=== PATIENT | female | born 1960 | race Caucasian/White ===

== ENCOUNTER → 2023-10-26 14:42 | Outpatient (BNVA) | payer MEDICAID, SELFPAY | PROVIDERS: PCP Internal Medicine; Visit Provider Physician Assistant Surgical ==

== ENCOUNTER 2023-11-22 08:34 | Outpatient (AMB) | payer MEDICAID, SELFPAY ==
--- NOTE | 2023-11-22 12:52 | MHC.OFFVISWM ---
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 Allergies penicillin V Allergy (Unknown, Verified 11/22/23 12:52) hives acarbose Adverse Reaction (Unknown, Verified 11/22/23 12:52) Flatulence topiramate [From Topamax] Adverse Reaction (Unknown, Verified 11/22/23 12:52) Facial Tingling shellfish Allergy (Unknown, Uncoded 11/22/23 12:52) Angioedema Medication List - Last Reconciled 11/22/23 by Ashwin Cheung MD albuterol sulfate 90 mcg/actuation (Ventolin HFA) 2 puffs inhalation Q4H PRN atorvastatin 80 mg PO BEDTIME blood sugar diagnostic (FreeStyle Lite Strips) As directed blood-glucose meter (FreeStyle [place] Lite kit) As directed escitalopram oxalate (Lexapro) 20 mg PO DAILY ferrous sulfate 325 mg PO DAILY fluticasone propionate 110 mcg/actuation (Flovent HFA) 2 puffs inhalation BID hydroxyzine HCl 25 mg PO TID lancets (FreeStyle Lancets) As directed loratadine (Claritin) 10 mg PO DAILY lorazepam (Ativan) 0.5 mg PO BEDTIME PRN mirabegron ER (Myrbetriq) 50 mg PO DAILY mometasone 0.1% 1 appl topical DAILY prazosin 1 mg PO TID propranolol ER 160 mg PO DAILY sennosides (senna) 8.6 mg PO DAILY topiramate 50 mg PO BID valacyclovir (Valtrex) 1,000 mg PO DAILY zolpidem (Ambien) 10 mg PO BEDTIME HPI 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 BMI 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 HPI Details Start time: 12.50pm, End time: 1.32pm ?I spent 37 minutes speaking with the patient on the phone plus an additional 5 minutes reviewing and updating records for a total of 42 minutes HPI Comments History of Present Illness Details Previous weight loss efforts: previous laparoscopic gastric bypass Wakes up: 8am, sleeps: 11pm Breakfast: none Lunch: 2pm (ham and cheese sandwich), 2 boiled eggs Dinner: 6-7pm (rice, meat) Snacks: cookie (4pm), cookie 9pm Exercise: has stationary bike Fluids: Coffee: 20oz/day (milk, sweetener), occasionally, tea, soda: none, juice: none, ETOH: rarely PFSH Medical History (Updated 11/22/23 @ 13:24 by Ashwin Cheung MD) Intestinal malabsorption Migraines Insomnia Anxiety Depression DJD (degenerative joint disease) Hyperlipidemia Hypertension CAD (coronary artery disease) Obstructive sleep apnea treated with continuous positive airway pressure (CPAP) Hypoglycemia Anxiety and depression Anemia Seronegative rheumatoid arthritis Sleep apnea Asthma Surgical History (Updated 10/26/23 @ 15:30 by Andrey Gonzales, RN) History of surgery on wrist Hx of appendectomy H/O total hip arthroplasty Hx of cataract extraction H/O gastric bypass Family History (Updated 10/26/23 @ 15:31 by Andrey Gonzales, MARLYN) Father Hypertension Asthma Depression Diabetes Mother Diabetes Hypertension Social History (Updated 06/04/23 @ 15:37 by Andreia Smallwood [facility]) Alcohol intake: current Alcohol intake frequency: holidays/special occasions only Patient Tobacco Use Status: Former Tobacco user Assessment & Plan Assessment & Plan (1) Obesity: Code(s): E66.9 - Obesity, unspecified Qualifiers: Obesity type: due to excess calories Obesity classification: adult class 2 (BMI 35 - 39.9) Serious obesity comorbidity presence: with serious comorbidity Body mass index: BMI 36.0-36.9 Qualified Code(s): E66.01 - Morbid (severe) obesity due to excess calories; Z68.36 - Body mass index [BMI] 36.0-36.9, adult Plan: 1.? Plan for lap sleeve gastrectomy of the gastric pouch. If diaphragmatic or ventral hernias are present at time of surgery, these will be repaired laparoscopically as well. 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 I emphasized the importance of close follow-up, adherence to instructions and good communication. 2. Nutritional counseling. Start with 2 CELEBRATE REBUILD protein (buy at [facility]) shakes (ONE scoop EACH in 8oz low fat unsweetened almond milk each) at 9am-11am and 12pm-2pm, 1 protein bar (CELEBRATE protein bars, buy at [facility] [employer] [facility]) at 3pm-5pm, dinner at 6pm (6 forks of protein and 6 forks of salad/vegetables) AND one more protein bar after dinner at 8pm-10pm. So you do 2 protein shakes, 2 protein bars and one meal per day. Meal to include lean meat (beef, fish, pork, turkey, chicken), or tamazight yogurt, or egg whites, or beans with a salad with olive oil and fruits (berries, pears, apples, kiwi). Avoid salt, breads, potatoes, rice, pasta, desserts. 3. Each shake would be drunk slowly, like coffee in a period of 2 hours. 4. Cut each bar in 4 pieces and eat each piece in 30min ?to make each bar last 2 hours. 5. I emphasized the importance of measuring accurately the food portion and measure it when serving the food in plate 6. The meal portions include 6 full-size forks of meat and 6 full-size forks of salad. You always eat the meat portion but you can replace up to 3 forks for salad/vegetables with rice, potatoes or pasta, or a fruit ?if you like. The less you do it the better weight loss will be. 7. One full-size fork is what it can be scooped on the fork without falling aside and not what can be bit with the fork. Use regular forks like those you find in a typical restaurant. 8.? Please send me weight measurements as soon as possible and then once a week. Always include your diet and exercise plan. 9. Alternatively start stationary bike at a resistance level of 4.0 Increase level by 1.0 every 3 min to a max level of 10.0. Stay at this level for 3 min and then return to level 4.0 and repeat same steps until 300 calories are burned. Velocity target is 12mph and heart rate is 145 bpm. Goal is to burn 2000 calories per week on exercise 10. The best choice would be to purchase a stationary bike, elliptical or treadmill at home that can track calories. Let me know if you do so I can give you an exercise plan. 11. Goal is to lose at least 1.5-2lbs per week 12. Goal to lose 10% of your weight before surgery, which is about 21lbs. Ultimate weight goal: 189lbs before surgery 13. Please follow the diet plan exactly without any change. If you don't like something about the plan or you feel hungry you need to communicate with me so I can help you revise the plan. You should not change the plan yourself. Orders: Orders Insulin Today E66.9 - Obesity, unspecified, E78.5 - Hyperlipidemia, unspecified, G47.33 - Obstructive sleep apnea (adult) (pediatric), I10 - Essential (primary) hypertension, I25.10 - Atherosclerotic heart disease of [place] coronary artery without angina pectoris, K90.9 - Intestinal malabsorption, unspecified, Z68.36 - Body mass index [BMI] 36.0-36.9, adult H Pylori Breath Test Today E66.9 - Obesity, unspecified, E78.5 - Hyperlipidemia, unspecified, G47.33 - Obstructive sleep apnea (adult) (pediatric), I10 - Essential (primary) hypertension, I25.10 - Atherosclerotic heart disease of [place] coronary artery without angina pectoris, K90.9 - Intestinal malabsorption, unspecified, Z68.36 - Body mass index [BMI] 36.0-36.9, adult Lipid Panel Today E66.9 - Obesity, unspecified, E78.5 - Hyperlipidemia, unspecified, G47.33 - Obstructive sleep apnea (adult) (pediatric), I10 - Essential (primary) hypertension, I25.10 - Atherosclerotic heart disease of [place] coronary artery without angina pectoris, K90.9 - Intestinal malabsorption, unspecified, Z68.36 - Body mass index [BMI] 36.0-36.9, adult Comprehensive Met. Panel Today E66.9 - Obesity, unspecified, E78.5 - Hyperlipidemia, unspecified, G47.33 - Obstructive sleep apnea (adult) (pediatric), I10 - Essential (primary) hypertension, I25.10 - Atherosclerotic heart disease of [place] coronary artery without angina pectoris, K90.9 - Intestinal malabsorption, unspecified, Z68.36 - Body mass index [BMI] 36.0-36.9, adult Vitamin B12 and Folate Today E66.9 - Obesity, unspecified, E78.5 - Hyperlipidemia, unspecified, G47.33 - Obstructive sleep apnea (adult) (pediatric), I10 - Essential (primary) hypertension, I25.10 - Atherosclerotic heart disease of [place] coronary artery without angina pectoris, K90.9 - Intestinal malabsorption, unspecified, Z68.36 - Body mass index [BMI] 36.0-36.9, adult C Reactive Protein Today E66.9 - Obesity, unspecified, E78.5 - Hyperlipidemia, unspecified, G47.33 - Obstructive sleep apnea (adult) (pediatric), I10 - Essential (primary) hypertension, I25.10 - Atherosclerotic heart disease of [place] coronary artery without angina pectoris, K90.9 - Intestinal malabsorption, unspecified, Z68.36 - Body mass index [BMI] 36.0-36.9, adult Vitamin A Today E66.9 - Obesity, unspecified, E78.5 - Hyperlipidemia, unspecified, G47.33 - Obstructive sleep apnea (adult) (pediatric), I10 - Essential (primary) hypertension, I25.10 - Atherosclerotic heart disease of [place] coronary artery without angina pectoris, K90.9 - Intestinal malabsorption, unspecified, Z68.36 - Body mass index [BMI] 36.0-36.9, adult TSH reflex Free T4 Today E66.9 - Obesity, unspecified, E78.5 - Hyperlipidemia, unspecified, G47.33 - Obstructive sleep apnea (adult) (pediatric), I10 - Essential (primary) hypertension, I25.10 - Atherosclerotic heart disease of [place] coronary artery without angina pectoris, K90.9 - Intestinal malabsorption, unspecified, Z68.36 - Body mass index [BMI] 36.0-36.9, adult Vitamin D 25-OH Total Today E66.9 - Obesity, unspecified, E78.5 - Hyperlipidemia, unspecified, G47.33 - Obstructive sleep apnea (adult) (pediatric), I10 - Essential (primary) hypertension, I25.10 - Atherosclerotic heart disease of [place] coronary artery without angina pectoris, K90.9 - Intestinal malabsorption, unspecified, Z68.36 - Body mass index [BMI] 36.0-36.9, adult US abdomen comp w elastography Today E66.9 - Obesity, unspecified, E78.5 - Hyperlipidemia, unspecified, G47.33 - Obstructive sleep apnea (adult) (pediatric), I10 - Essential (primary) hypertension, I25.10 - Atherosclerotic heart disease of [place] coronary artery without angina pectoris, K90.9 - Intestinal malabsorption, unspecified, Z68.36 - Body mass index [BMI] 36.0-36.9, adult XR chest 2V Today E66.9 - Obesity, unspecified, E78.5 - Hyperlipidemia, unspecified, G47.33 - Obstructive sleep apnea (adult) (pediatric), I10 - Essential (primary) hypertension, I25.10 - Atherosclerotic heart disease of [place] coronary artery without angina pectoris, K90.9 - Intestinal malabsorption, unspecified, Z68.36 - Body mass index [BMI] 36.0-36.9, adult ECG 12 lead EKG Today E66.9 - Obesity, unspecified, E78.5 - Hyperlipidemia, unspecified, G47.33 - Obstructive sleep apnea (adult) (pediatric), I10 - Essential (primary) hypertension, I25.10 - Atherosclerotic heart disease of [place] coronary artery without angina pectoris, K90.9 - Intestinal malabsorption, unspecified, Z68.36 - Body mass index [BMI] 36.0-36.9, adult FL upper GI w air Today E66.9 - Obesity, unspecified, E78.5 - Hyperlipidemia, unspecified, G47.33 - Obstructive sleep apnea (adult) (pediatric), I10 - Essential (primary) hypertension, I25.10 - Atherosclerotic heart disease of [place] coronary artery without angina pectoris, K90.9 - Intestinal malabsorption, unspecified, Z68.36 - Body mass index [BMI] 36.0-36.9, adult Hemoglobin A1c Today E66.9 - Obesity, unspecified, E78.5 - Hyperlipidemia, unspecified, G47.33 - Obstructive sleep apnea (adult) (pediatric), I10 - Essential (primary) hypertension, I25.10 - Atherosclerotic heart disease of [place] coronary artery without angina pectoris, K90.9 - Intestinal malabsorption, unspecified, Z68.36 - Body mass index [BMI] 36.0-36.9, adult Complete Blood Count Auto Diff Today E66.9 - Obesity, unspecified, E78.5 - Hyperlipidemia, unspecified, G47.33 - Obstructive sleep apnea (adult) (pediatric), I10 - Essential (primary) hypertension, I25.10 - Atherosclerotic heart disease of [place] coronary artery without angina pectoris, K90.9 - Intestinal malabsorption, unspecified, Z68.36 - Body mass index [BMI] 36.0-36.9, adult IRON PROFILE Today E66.9 - Obesity, unspecified, E78.5 - Hyperlipidemia, unspecified, G47.33 - Obstructive sleep apnea (adult) (pediatric), I10 - Essential (primary) hypertension, I25.10 - Atherosclerotic heart disease of [place] coronary artery without angina pectoris, K90.9 - Intestinal malabsorption, unspecified, Z68.36 - Body mass index [BMI] 36.0-36.9, adult Zinc Today E66.9 - Obesity, unspecified, E78.5 - Hyperlipidemia, unspecified, G47.33 - Obstructive sleep apnea (adult) (pediatric), I10 - Essential (primary) hypertension, I25.10 - Atherosclerotic heart disease of [place] coronary artery without angina pectoris, K90.9 - Intestinal malabsorption, unspecified, Z68.36 - Body mass index [BMI] 36.0-36.9, adult Vitamin B1 Today E66.9 - Obesity, unspecified, E78.5 - Hyperlipidemia, unspecified, G47.33 - Obstructive sleep apnea (adult) (pediatric), I10 - Essential (primary) hypertension, I25.10 - Atherosclerotic heart disease of [place] coronary artery without angina pectoris, K90.9 - Intestinal malabsorption, unspecified, Z68.36 - Body mass index [BMI] 36.0-36.9, adult Ferritin Today E66.9 - Obesity, unspecified, E78.5 - Hyperlipidemia, unspecified, G47.33 - Obstructive sleep apnea (adult) (pediatric), I10 - Essential (primary) hypertension, I25.10 - Atherosclerotic heart disease of [place] coronary artery without angina pectoris, K90.9 - Intestinal malabsorption, unspecified, Z68.36 - Body mass index [BMI] 36.0-36.9, adult Referrals Behavioral Health Referral E66.9 - Obesity, unspecified, E78.5 - Hyperlipidemia, unspecified, G47.33 - Obstructive sleep apnea (adult) (pediatric), I10 - Essential (primary) hypertension, I25.10 - Atherosclerotic heart disease of [place] coronary artery without angina pectoris, K90.9 - Intestinal malabsorption, unspecified, Z68.36 - Body mass index [BMI] 36.0-36.9, adult Nutrition/Dietitian Referral E66.9 - Obesity, unspecified, E78.5 - Hyperlipidemia, unspecified, G47.33 - Obstructive sleep apnea (adult) (pediatric), I10 - Essential (primary) hypertension, I25.10 - Atherosclerotic heart disease of [place] coronary artery without angina pectoris, K90.9 - Intestinal malabsorption, unspecified, Z68.36 - Body mass index [BMI] 36.0-36.9, adult Telehealth Telehealth Location of provider rendering services: practice address Location of patient: address on file Patient Identification confirmed using: Name, : Yes Telehealth method: voice only Patient verbally consented to treatment: Yes Patient verbally consented to billing insurance company: Yes Patient informed of any privacy concerns related to visit: Yes Minutes spent on Phone/Video with Pt.: 42 Coding Level of Care Code Tele [facility] Pt Level 3 (37145) Diagnoses Class 2 severe obesity due to excess calories with serious comorbidity and body mass index (BMI) of 36.0 to 36.9 in adult E66.01; Z68.36 Obesity type: due to excess calories Obesity classification: adult class 2 (BMI 35 - 39.9) Serious obesity comorbidity presence: with serious comorbidity Body mass index: BMI 36.0-36.9 Time Spent (min) 42
[2023-11-22 13:12] VITALS: BMI 35.9
== END 2023-11-22 13:33 | disposition home or self-care (01) ==
LOC: HO.HBS 08:34
PROVIDERS: PCP Internal Medicine; Visit Provider Surgery
DX: E66.01 Morbid (severe) obesity due to excess calories (principal); Z68.36 Body mass index [BMI] 36.0-36.9, adult
CPT/HCPCS: 99203

== ENCOUNTER → 2023-11-22 08:34 | Outpatient (BNVA) | payer MEDICAID, SELFPAY | PROVIDERS: PCP Internal Medicine; Visit Provider Surgery ==

== ENCOUNTER 2023-12-01 12:54 | Outpatient (REF) | payer MEDICAID, SELFPAY ==
--- NOTE | ~2023-12-01 | XR_ITS ---
EXAMINATION: XR CHEST CLINICAL INFORMATION: Obesity, unspecified COMPARISON: None available. TECHNIQUE: 2 views of the chest were obtained. FINDINGS: No significant abnormality is noted involving the heart, lungs, mediastinum, bony thorax or soft tissues. XR/XR chest 2V IMPRESSION: Unremarkable examination.
[2023-12-01 13:17] LABS: MANUAL DIFF FLAG NO
--- NOTE | 2023-12-01 13:20 | ECG_ITS ---
Test Reason : e66.9 Blood Pressure : / mmHG Vent. Rate : 061 BPM Atrial Rate : 061 BPM P-R Int : 164 ms QRS Dur : 102 ms QT Int : 408 ms P-R-T Axes : 011 -09 026 degrees QTc Int : 410 ms Normal sinus rhythm Normal ECG No previous ECGs available Referred By: Ashwin Cheung Electronically Signed By:KARYNA VANN
[2023-12-01 14:00] LABS: Basophils Percent Auto 0.4 % (0-2); Eosinophils Absolute Auto 0.2 X10*3/uL (0.0-0.4); Eosinophils Percent Auto 4.6 % (0-4); Hematocrit 39.1 % (37.0-47.0); Hemoglobin 12.7 g/dl (12.0-16.0); Imm Gran Abs Auto 0.01 X10*3/uL (0.00-0.03); Imm Gran Pct Auto 0.2 % (0.0-0.4); Lymphocytes Percent Auto 38.8 % (20-40); Mean Corpuscular HGB Conc 32.5 g/dl (31.0-35.0); Mean Corpuscular Hemoglobin 26.7 pg (27.0-33.0); Mean Corpuscular Volume 82.1 fL (80.0-98.0); Mean Platelet Volume 10.2 fL (9.4-12.3); Monocytes Absolute Auto 0.4 X10*3/uL (0.1-1.2); Monocytes Percent Auto 8.5 % (2-11); Neutrophils Absolute Auto 2.5 x10*3/uL (2.0-8.3); Neutrophils Percent Auto 47.5 % (45-73); Platelet Count 266 X10*3/uL (160-400); Red Blood Count 4.76 X10*6/uL (4.20-5.50); White Blood Count 5.2 X10*3/uL (4.8-10.8)
[2023-12-01 14:18] LABS: Estimated Average Glucose 114 mg/dL; Hemoglobin A1c % 5.6 % (<6.0)
[2023-12-01 14:35] LABS: Alanine Aminotransferase 14 U/L (0-31); Albumin Level 4.2 g/dL (3.5-5.0); Alkaline Phosphatase 69 U/L (39-117); Anion Gap 11 (12-20); Aspartate Amino Transferase 17 U/L (5-31); Bilirubin Total 0.5 mg/dL (0.0-1.0); Blood Urea Nitrogen 16 mg/dL (9-16); C Reactive Protein 0.15 mg/dL (< or = 0.50); Calcium 9.3 mg/dL (8.4-10.2); Carbon Dioxide 26 mmol/L (22-29); Chloride 107 mmol/L (96-108); Cholesterol 200 mg/dL (<200); Estimated Glomerular Filt Rate > 60; Glucose Random 86 mg/dL (60-115); HDL Cholesterol 42 mg/dL (>40); Iron 36 mcg/dL (30-160); LDL Cholesterol Calculated 133 mg/dL (<100); Percent Iron Saturation 10 % (15-50); Potassium 4.1 mmol/L (3.3-5.1); Sodium 140 mmol/L (135-145); Total Iron Binding Capacity 352 mcg/dL (228-428); Total Protein 7.2 g/dL (6.5-8.0); Triglycerides 126 mg/dL (<150); Unsaturated Iron Binding 316 ug/dL
[2023-12-01 14:52] LABS: Ferritin 5 ng/mL (10-250); Insulin 9 uU/mL (2-29); TSH reflex Free T4 0.59 uIU/mL (0.32-4.0); Vitamin D 25-OH Total 20.1 ng/mL (>30)
[2023-12-01 15:13] LABS: Folate 12.3 ng/mL (> or = 4.0); Vitamin B12 271 pg/mL (200-900)
[2023-12-03 18:44] LABS: Zinc 73 mcg/dL (60-130)
[2023-12-04 17:03] LABS: Vitamin A 35 mcg/dL (38-98)
[2023-12-06 12:23] LABS: Vitamin B1 11 nmol/L (8-30)
== END 2023-12-01 12:55 | disposition home or self-care (01) ==
LOC: HO.XRAY 12:54
PROVIDERS: PCP Internal Medicine; Visit Provider Surgery
DX: E66.9 Obesity, unspecified (principal); G47.33 Obstructive sleep apnea (adult) (pediatric); I25.10 Atherosclerotic heart disease of native coronary artery without angina pectoris; I10 Essential (primary) hypertension; E78.5 Hyperlipidemia, unspecified; K90.9 Intestinal malabsorption, unspecified; Z68.36 Body mass index [BMI] 36.0-36.9, adult
CPT/HCPCS: 36415; 71046; 80053; 80061; 82306; 82607; 82728; 82746; 83036; 83525; 83540; 84425; 84443; 84590; 84630; 85025; 86140; 93005

== ENCOUNTER → 2023-12-01 13:20 | Outpatient (BNV) | payer MEDICAID, SELFPAY | PROVIDERS: PCP Internal Medicine; Visit Provider Internal Medicine | DX: E66.9 Obesity, unspecified (principal) | CPT/HCPCS: 93010 ==

== ENCOUNTER 2023-12-13 08:07 | Outpatient (AMB) | payer MEDICAID, SELFPAY ==
--- OUTSIDE RECORDS SUMMARY | 2023-12-13 08:09 | XMS_ITS | Continuity of Care Document ---
Author Name Unknown Organization [facility] Address [address] [place] [address]- Care Team Providers Care Firer Low Pressure Name Role Phone Fabián MARTINEZ, Modesta Flores Primary Care Physician [phone] Encounter [facility] Date(s): 10/29/23 - 11/28/23 [facility] [address] [place] [address]- [place] Allergies, Adverse Reactions, Alerts Substance Reaction Severity Status penicillin hives, swelling of f arely and lips rash Active shellfish hives, swelling of face and lips Active Dust Active Pollen Active Medications 2 wheeled walker 2 wheeled walker, See Instructions, # 1 units, Refills 0, Tot. Refills 0, Maintenance, s/p lumbar surgery; required for ambulation safety, 08/09/18 13:24:11 EDT, Compound Start Date: 08/09/18 Status: Ordered acetaminophen 325 mg oral tablet 650 mg, By Mouth, Every 6 hours, May take OTC not to exceed 3000 mg/day, Refills 0, Maintenance, 08/05/22 8:05:00 EDT, Partial fill upon patient request if the prescription is for a schedule II opioid drug. Start Date: 08/05/22 Status: Ordered Ambien Tablet = 10 mg, By Mouth, Daily at bedtime, PRN Insomnia, 0 Refills, Maintenance, 08/05/22 8:05:00 EDT, Tablet, Partial fill upon patient request if the prescription is for a schedule II opioid drug. Start Date: 08/05/22 Status: Ordered Aspirin Low Dose 81 mg oral delayed release tablet 1 tablet, By Mouth, Daily, # 30 tablet, 0 Refills, Maintenance, 09/14/23 8:20:00 EDT, [facility] [id number], 160, cm, 08/05/22 11:33:00 EDT, Height, 96.3, kg, 08/04/22 6:38:00 EDT, Dry Weight Start Date: 09/14/23 Status: Ordered Ativan 0.5 mg oral tablet 2 tablet = 1 mg, By Mouth, Daily at bedtime, PRN as needed for anxiety, 0 Refills, Maintenance, 08/03/16 10:56:56 EDT Start Date: 08/03/16 Status: Ordered atorvastatin 40 mg oral tablet 1 tablet = 40 mg, By Mouth, Daily, # 90 tablet, 3 Refills, Maintenance, 06/25/21 7:39:00 EDT, Tablet, [facility]/pharmacy #[id number], Partial fill upon patient request if the prescription is for a schedule II opioid drug., 162, cm, 06/23/21 12:24:00 EDT, Height,... Start Date: 06/25/21 Status: Ordered celecoxib 200 mg oral capsule 1 capsule = 200 mg, By Mouth, Daily, # 30 capsule, 0 Refills, Maintenance, 11/13/21 13:24:00 EST, Capsule, Partial fill upon patient request if the prescription is for a schedule II opioid drug. Start Date: 11/13/21 Status: Ordered cholecalciferol 1000 intl units oral tablet 1 tablet = 1,000 International_Units, By Mouth, Daily, 0 Refills, Maintenance, 05/25/21 13:32:00 EDT, Tablet, Partial fill upon patient request if the prescription is for a schedule II opioid drug. Start Date: 05/25/21 Status: Ordered commode commode, See Instructions, # 1 units, Refills 0, Tot. Refills 0, Maintenance, dx:m43.26 needs 1 commode, 08/16/18 11:48:58 EDT, Compound Start Date: 08/16/18 Status: Ordered CPAP Machine See Instructions, # 1 each, Refills 11, Tot. Refills 11, Maintenance, BHIRS: Resmed S10 @ 9cm H2O, Ramp and EPR PRN, w/ Humidifier, Data Card, Chinstrap, Climateline TUbing, Headgear, Filters, Mask, Liners, ALL SUPPLIES DX: CHRISS G47.33 Length of Need 9... Start Date: 03/12/17 Status: Ordered escitalopram 20 mg oral tablet 1 tablet = 20 mg, By Mouth, Daily, # 30 tablet, 0 Refills, Maintenance, 05/19/21 16:42:00 EDT, Tablet, Partial fill upon patient request if the prescription is for a schedule II opioid drug. Start Date: 05/19/21 Status: Ordered Glucose Tablets Maintenance, 06/04/22 14:24:00 EDT, Supply Start Date: 06/04/22 Status: Ordered Golytely - oral powder for reconstitution 240 mL, By Mouth, Every 15 minutes, Start prep at 5 pm the night before the procedure. Take 1/2 of the prep Take the othe 1/2 6 hours before the procedure, # 1 each, 0 Refills, Maintenance, 05/07/23 13:07:00 EDT, REC Powder, [id number], Ok to... Start Date: 05/07/23 Status: Ordered Maalox Plus Liquid 30 mL, By Mouth, Every 4 hours, PRN Other, Heartburn, 0 Refills, Maintenance, 08/05/22 8:05:00 EDT,Suspension, Partial fill upon patient request if the prescription is for a schedule II opioid drug. Start Date: 08/05/22 Status: Ordered MiraLax Powder 1 pack/packet = 17 Gm, By Mouth, Daily, PRN Constipation, 0 Refills, Maintenance, 08/05/22 8:05:00 EDT, Powder, Partial fill upon patient request if the prescription is for a schedule II opioid drug. Start Date: 08/05/22 Status: Ordered MOM Liquid 30 mL, By Mouth, Daily, PRN Constipation, 0 Refills, Maintenance, 08/05/22 8:05:00 EDT, Suspension,Partial fill upon patient request if the prescription is for a schedule II opioid drug. Start Date: 08/05/22 Status: Ordered NuLYTELY with Flavor Packs oral powder for reconstitution See Instructions, Per instruction sheet. The night before colonoscopy drink 240mL every 15-20 minutes until first half is gone. Repeat 6 hours prior to procedure., # 4,000 mL, 0 Refills, Maintenance,02/24/23 14:25:00 EDT, [id number], may sub... Start Date: 02/24/23 Status: Ordered one 3 in one commode one 3 in one commode, See Instructions, # 1 units, Refills 0, Tot. Refills 0, Maintenance, one 3 in1 commode. diagnosis spinal stenosis and spondylolisthesis s/p lumbar TLIF surgery at L4/5. therapeutic obj. safety in transfers and reduction of pain... Start Date: 08/11/18 Status: Ordered prazosin 2 mg oral capsule 1 capsule = 2 mg, By Mouth, Daily at bedtime, # 270 capsule, 0 Refills, Maintenance, 05/19/21 16:41:00 EDT, Capsule, Partial fill upon patient request if the prescription is for a schedule II opioid drug. Start Date: 05/19/21 Status: Ordered ProAir HFA 90 mcg/inh inhalation aerosol with adapter 2 puffs, Inhalation, 4 times a day, 0 Refills, Maintenance Start Date: 12/11/11 Status: Ordered Propranolol 60 mg, By Mouth, Daily, Refills 0, Maintenance, 05/19/21 14:12:00 EDT, Partial fill upon patient request if the prescription is for a schedule II opioid drug. Start Date: 05/19/21 Status: Ordered QUEtiapine 25 mg oral tablet 50 mg, 2, tablet, By Mouth, Daily at bedtime, # 360 tablet, Refills 0, Maintenance, 05/19/21 16:42:00 EDT, Partial fill upon patient request if the prescription is for a schedule II opioid drug. Start Date: 05/19/21 Status: Ordered Restasis 0.05% ophthalmic emulsion INSTILL 1 DROP INTO BOTH EYES TWICE A DAY INSTILL 1 DROP IN BOTH EYES TWICE DAILY Start Date: 07/30/22 Status: Ordered senna 187 mg oral tablet 1 tablet = 8.6 mg, By Mouth, Daily at bedtime, PRN as needed for constipation, 0 Refills, Maintenance, 08/05/22 8:05:00 EDT, Tablet, Partial fill upon patient request if the prescription is for a schedule II opioid drug. Start Date: 08/05/22 Status: Ordered Symbicort 160mcg/4.5mcg Inhaler 2, puffs, Inhalation, 2 times a day, Refills 0, Maintenance, 08/08/18 18:03:50 EDT Start Date: 08/08/18 Status: Ordered Topiramate = 50 mg, By Mouth, 2 times a day, 0 Refills, Maintenance, 05/19/21 14:08:00 EDT, Partial fill upon patient request if the prescription is for a schedule II opioid drug. Start Date: 05/19/21 Status: Ordered Zetia 10 mg oral tablet 1 tablet = 10 mg, By Mouth, Daily, # 90 tablet, 3 Refills, Maintenance, 10/29/23 11:21:00 EST, [id number], Partial fill upon patient request if the prescription is for a schedule II opioid drug., 160, cm, 10/13/23 14:16:00 EST, Height, 96.3, k... Start Date: 10/29/23 Status: Ordered Problem List Condition Confirmation Course Effective Dates Status Health St atus Informant Anxiety Confirmed Active Appendectomy Confirmed 1979 Active Asthma Confirmed Active Depression Confirmed Active Gastric bypass operation Confirmed 2005 Active Menopausal symptom Confirmed Active Stage 2 cystocele Confirmed Active Migraines Confirmed Active Urinary incontinence, mixed Confirmed Active Obese class II Confirmed Active Obesity Confirmed Active Severe obesity (BMI 35.0-39.9) with comorbidity Confirmed Active Social History Social History Type Response Smoking Status Former smoker; Other : pt quit 3 yrs ago; entered on: 11/17/17 Sex Patient Care team information Care Team Personnel Name: Modesta Lockwood MD Position: [facility] Outreach Member Role: PCP Address: Address: [address] [place] [address] [address] Modesta Lockwood MD [address] Name: Iván Randall RN Position: [facility] RN Member Role: Primary Care Nurse Name: Ana Vernon RN Position: [facility] RN Member Role: Primary Care Nurse Name: Mony Charles RN Position: S RN Member Role: Primary Care Nurse Name: Bianca Oneill RN Position: S RN Member Role: Primary Care Nurse Name: Juju Pagan RN Position: S RN Member Role: Primary Care Nurse Care Team Related Persons Name: IFTIKHAR MASTERS Address: [address] [place] [address] Name: TAPAN GODINEZ Address: [address] [place] [address]
--- NOTE | 2023-12-13 12:18 | A.OFFVIS_ITS ---
Intake VS Expanded 12/13/23 12:28 Height 5 ft 4 in Weight 211 lb BMI 36.2 Body Fat % 48.9 Body Fat Mass 103.1 Fat Free Mass 107.8 Visceral Fat Rating 18 Body Water % 35 Body Water Mass 73.8 Basal Metabolic Rate/Score 1,439 Intake Visit Reasons: TV Follow Up SWL - 1ST Allergies penicillin V Allergy (Unknown, Verified 11/22/23 12:52) hives acarbose Adverse Reaction (Unknown, Verified 11/22/23 12:52) Flatulence topiramate [From Topamax] Adverse Reaction (Unknown, Verified 11/22/23 12:52) Facial Tingling shellfish Allergy (Unknown, Uncoded 11/22/23 12:52) Angioedema HPI TV Follow Up SWL - HPI Details Start time: 12.10pm, End time: 12.30pm ?I spent 15 minutes speaking with the patient on the phone plus an additional 5 minutes reviewing and updating records for a total of 20 minutes HPI Comments History of Present Illness Details Is doing 2 Celebrate Rebuild protein shakes (1 scoop in 8oz almond milk), 2 Celebrate protein bars and one meal (6 forks of protein and 6 forks of salad or vegetables) Exercise: is doing the stationary bike for 30-45 minutes daily [facility] Medical History (Updated 12/07/23 @ 18:43 by Ashwin Cheung MD) Intestinal malabsorption Migraines Insomnia Anxiety Depression DJD (degenerative joint disease) Hyperlipidemia Hypertension CAD (coronary artery disease) Obstructive sleep apnea treated with continuous positive airway pressure (CPAP) Hypoglycemia Anxiety and depression Anemia Seronegative rheumatoid arthritis Sleep apnea Asthma Surgical History (Updated 10/26/23 @ 15:30 by Andrey Gonzales RN) History of surgery on wrist Hx of appendectomy H/O total hip arthroplasty Hx of cataract extraction H/O gastric bypass Family History (Updated 10/26/23 @ 15:31 by Andrey Gonzales RN) Father Hypertension Asthma Depression Diabetes Mother Diabetes Hypertension Social History (Updated 06/04/23 @ 15:37 by ALFREDO Will) Alcohol intake: current Alcohol intake frequency: holidays/special occasions only Patient Tobacco Use Status: Former Tobacco user Assessment & Plan Assessment & Plan (1) Obesity: Code(s): E66.9 - Obesity, unspecified Qualifiers: Obesity type: due to excess calories Obesity classification: adult class 2 (BMI 35 - 39.9) Serious obesity comorbidity presence: with serious comorbidity Body mass index: BMI 36.0-36.9 Qualified Code(s): E66.01 - Morbid (severe) obesity due to excess calories; Z68.36 - Body mass index [BMI] 36.0- 36.9, adult Plan: 1. Continue present nutritional plan of 2 Celebrate Rebuild protein shakes (1 scoop in 8oz almond milk), 2 Celebrate protein bars and one meal (6 forks of protein and 6 forks of salad or vegetables) 2. Exercise: continue the stationary bike for 30-45 minutes daily 3. Continue to send me weight measurements weekly on Tuesdays Telehealth Telehealth Location of provider rendering services: practice address Location of patient: address on file Patient Identification confirmed using: Name, : Yes Telehealth method: voice only Patient verbally consented to treatment: Yes Patient verbally consented to billing insurance company: Yes Patient informed of any privacy concerns related to visit: Yes Minutes spent on Phone/Video with Pt.: 20 Coding Level of Care Code Tele Est Pt Level 3 (06974) Diagnoses Class 2 severe obesity due to excess calories with serious comorbidity and body mass index (BMI) of 36.0 to 36.9 in adult E66.01; Z68.36 Obesity type: due to excess calories Obesity classification: adult class 2 (BMI 35 - 39.9) Serious obesity comorbidity presence: with serious comorbidity Body mass index: BMI 36.0-36.9 Time Spent (min) 20
[2023-12-13 12:28] VITALS: BMI 36.2
== END 2023-12-13 12:32 | disposition home or self-care (01) ==
LOC: HO.HBS 08:07
PROVIDERS: PCP Internal Medicine; Visit Provider Surgery
DX: E66.01 Morbid (severe) obesity due to excess calories (principal); Z68.36 Body mass index [BMI] 36.0-36.9, adult
CPT/HCPCS: 99213

== ENCOUNTER → 2023-12-13 08:07 | Outpatient (BNVA) | payer MEDICAID, SELFPAY | PROVIDERS: PCP Internal Medicine; Visit Provider Surgery ==

== ENCOUNTER 2023-12-16 11:33 | Outpatient (REF) | payer MEDICAID, SELFPAY ==
--- NOTE | ~2023-12-16 | US_ITS ---
EXAMINATION: US COMPLETE ABDOMEN WITH LIVER ELASTOGRAPHY CLINICAL INFORMATION: Obesity. COMPARISON: None available. TECHNIQUE: Real-time imaging of the abdominal viscera. Noninvasive ultrasound liver fibrosis assessment is performed using Rosangela ElastPQ point quantification shear wave elastography (2D-SWE) with a C5-2 MHz transducer. Multiple elastography samples are obtained. FINDINGS: PANCREAS: Largely obscured by overlapping bowel gas. ABDOMINAL AORTA: The proximal segment is obscured by overlapping bowel gas. The mid and distal aortic segments are normal in caliber. INFERIOR VENA CAVA: Visualized portions are normal. LIVER: Normal. The liver demonstrates normal size, contour and echogenicity. No focal lesion or intrahepatic biliary duct dilatation. The right lobe measures 12.1 cm in length. The left lobe measures 9.0 cm in length. Portal flow is towards the liver (hepatopetal). Shear wave liver elastography median stiffness is 1.65 m/s (reference: normal median stiffness is 1.3 m/s or less). IQR/median stiffness to assess sampling precision is 0.07 (reference: good quality data set is IQR/median stiffness of 0.15 or less). GALLBLADDER: There is cholelithiasis, without sludge, polyps, wall thickening or pericholecystic fluid. COMMON BILE DUCT: Normal in caliber measuring 0.3 cm in diameter. RIGHT KIDNEY: Normal. No hydronephrosis. No renal calculi or focal parenchymal lesions. The kidney measures 11.9 cm in maximum dimension. LEFT KIDNEY: At the interpolar aspect, a 1.7 cm benign, simple cyst is seen, for which no imaging follow-up is recommended. No hydronephrosis. No renal calculi or focal parenchymal lesions. The kidney measures 11.6 cm in maximum dimension. SPLEEN: Normal. The spleen measures 9.4 cm in maximum dimension. FREE FLUID: None. US/US abdomen comp w elastography IMPRESSION: 1. Liver elastography: In the absence of other known clinical signs, measurements rule out compensated advanced chronic liver disease. If there are known clinical signs, further testing may be needed for confirmation. 2. There is cholelithiasis. 3. Technically limited ultrasound examination of the pancreas and abdominal great vessels. REFERENCE: Society of Radiologists in Ultrasound Liver Stiffness Thresholds (2020): LIVER STIFFNESS THRESHOLDS: *Liver Stiffness equal or less than 1.3 m/s: High probability of being normal. *Liver Stiffness less than 1.7 m/s: In the absence of other known clinical signs, rules out compensated advanced chronic liver disease. *Liver Stiffness 1.7-2.1 m/s: Suggestive of compensated advanced chronic liver disease but need further test for confirmation. *Liver Stiffness over 2.1 m/s: Rules in compensated advanced chronic liver disease. *Liver Stiffness over 2.4 m/s: Suggestive of clinically significant portal hypertension. QUALITY OF DATA SET: *IQR/Median value equal or less than 0.15 implies a quality data set. *IQR/Median value over 0.15 implies a poor quality data set. SIGNIFICANT CHANGE FROM PRIOR EXAM: Significant change if liver stiffness measurement is 10% or greater from prior exam. OTHER CONSIDERATIONS: The stage of liver fibrosis may be overestimated in the setting of acute hepatitis, liver inflammation, elevated liver function tests, hepatic vascular congestion, obstructive cholestasis, non-fasting state, and infiltrative diseases such as amyloidosis and lymphoma. In some patients with NAFLD, the liver stiffness thresholds for compensated advanced chronic liver disease may be lower. In causes other than viral hepatitis and NAFLD, liver stiffness thresholds are not well established.
== END 2023-12-16 11:34 | disposition home or self-care (01) ==
LOC: HO.US 11:33
PROVIDERS: PCP Internal Medicine; Visit Provider Surgery
DX: E66.9 Obesity, unspecified (principal); Z68.36 Body mass index [BMI] 36.0-36.9, adult; K90.9 Intestinal malabsorption, unspecified
CPT/HCPCS: 76700; 76981

== ENCOUNTER 2023-12-20 13:23 | Outpatient (AMB) | payer OTHER, SELFPAY ==
--- NOTE | 2023-12-20 13:22 | MHC.WMTHER ---
Intake Intake Visit Reasons: VIDEO BH Intake Allergies penicillin V Allergy (Unknown, Verified 11/22/23 12:52) hives acarbose Adverse Reaction (Unknown, Verified 11/22/23 12:52) Flatulence topiramate [From Topamax] Adverse Reaction (Unknown, Verified 11/22/23 12:52) Facial Tingling shellfish Allergy (Unknown, Uncoded 11/22/23 12:52) Angioedema PFSH Medical History (Updated 12/20/23 @ 13:44 by Nelli Purcell) Intestinal malabsorption Migraines Insomnia Anxiety Depression DJD (degenerative joint disease) Hyperlipidemia Hypertension CAD (coronary artery disease) Obstructive sleep apnea treated with continuous positive airway pressure (CPAP) Hypoglycemia Anxiety and depression Anemia Seronegative rheumatoid arthritis Sleep apnea Asthma Surgical History (Updated 10/26/23 @ 15:30 by Andrey Gonzales RN) History of surgery on wrist Hx of appendectomy H/O total hip arthroplasty Hx of cataract extraction H/O gastric bypass Family History (Updated 10/26/23 @ 15:31 by Andrey Gonzales RN) Father Hypertension Asthma Depression Diabetes Mother Diabetes Hypertension Social History (Updated 06/04/23 @ 15:37 by Andreia Smallwood [facility]) Alcohol intake: current Alcohol intake frequency: holidays/special occasions only Patient Tobacco Use Status: Former Tobacco user Behavioral Health Assessment Weight Management Therapy Therapy Notes Details Pt is looking to have weight loss surgery to help improve her health and quality of life. She sees a psychiatrist from [facility] in [place] who prescribes her medication for anxiety, panic and depression. she reported over 20 years ago she was hospitalized for mental health reasons. She has no reported history of problems with drugs or alcohol. Presenting Concerns Referral Source provider Reason for referral weight loss surgery evaluation Precipitating Event obesity Living Situation Current Living Situation Rent At risk of losing current housing? No Satisfied with current living situation? Yes Comments Pt lives alone with her dog. Food/Weight/Diet Expectations of change weight loss and maintenance History/Relationship with food Pt reported that she would skip meal in the morning and just have coffee, around 2pm she would eat, sandwich, leftovers, rice, struggles with sweets, will often bake and have to give it away, cookies before bed or bag of popcorn, whipped cream History/Relationship with weight Pt reported that she has struggled with her weight for most of her life. History/Relationship with dieting pills, keto, nutrisystem, slimfast, gastric bypass 2004. 255>175lbsfor about 3 years and then she started to gain weight again. Binge Eating Do you frequently eat large amounts of food in short periods of time, not feeling physically hungry? No Do you feel out of control when you eat a large amount of food in a short period of time? No Do you eat large amounts of food rapidly and typically alone? No Night Eating Do you wake up at least once during the night to eat? No If you wake up in the night, do you find that it is necessary to eat something in order to fall back asleep? No Do you have little or no appetite in the morning and feel very hungry in the evening, often overeating between dinner and when you go to bed? Yes Social History Family history and relationship Pt is and had two children. She reported that her oldest two years ago. Her son lives locally. She has three grandchildren and watches her 9 year old granddaughter often. 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 none Education Highest grade completed completed high school Preferred learning style Auditory, Verbal, Written, Learn by doing and Visual Currently enrolled in educational program? No Interested in further educational program? No Employment Employment Status Unemployed Wants help to find employment? No Meaningful activities taking care of her dog, grocery shopping Financial Situation Describe current financial situation Occasional struggle Financial assistance? SSDI Service Service? No Mental Health and Addiction Treatment Current/Past substance abuse? No Current/Past addictive behavior concerns? No Medical and Physical Health Summary Physical exam in the last year? Yes Pain Screening Current pain? Yes Pain in the last few months? Yes Medications Is the patient compliant with medications? Yes Does the patient have Lees Guardian in place? Not applicable Does the patient use complimentary health approaches? No Questionnaires PHQ-9 Over the last 2 weeks, how often have you been bothered by any of the following problems? 1. Little interest or pleasure in doing things: not at all 2. Feeling down, depressed, or hopeless: not at all 3. Trouble falling or staying asleep, or sleeping too much: more than half the days 4. Feeling tired or having little energy: more than half the days 5. Poor appetite or overeating: several days 6. Feeling bad about yourself - or that you are a failure or have let yourself or your family down: several days 7. Trouble concentrating on things, such as reading the newspaper or watching television: not at all 8. Moving or speaking so slowly that other people could have noticed. Or the opposite - being so fidgety or restless that you have been moving around a lot more than usual: several days 9. Thoughts that you would be better off or of hurting yourself in some way: not at all Total score: 7 Source: Developed by Drs. Vinayak Stein, Deloris Quiroga, Pedro Hudson and colleagues, with an educational liban from [employer]. Binge Eating Scale Group 1 A. I don't feel self-conscious about my wt. or body size when I'm with others. B. I feel concerned about how I look to others, but it normally does not make me fell disappointed with myself C. I do get self-conscious about my appearance and wt. which makes me feel disappointed in myself. D. I feel very self-conscious about my wt. and frequently I feel intense shame and disgust for myself. I try to avoid social contacts because of my self-consciousness. Response Group 1: B Group 2 A. I don't have any difficulty eating slowly in the proper manner. B. Although I seem to gobble down foods, I don't end up feeling stuffed because of eating to much. C. At times, I tend to eat quickly and then, I feel uncomfortably full afterwards. D. I have the habit of bolting down my food, without really chewing it. When this happens I usually feel uncomfortably stuffed because I've eaten to much. Response Group 2: A Group 3 A. I feel capable to control my eating urges when I want to. B. I feel like I have failed to control my eating more than the average person. C. I feel utterly helpless when it comes to feeling in control of my eating urges. D. Because I feel so helpless about controlling my eating I have become very desperate about trying to get control. Response Group 3: A Group 4 A. I don't have the habit of eating when I'm bored. B. I sometimes eat when I'm bored, but often I'm able to get busy and get my mind off food. C. I have a regular habit of eating when I'm bored, but occasionally, I can use some other activity to get my mind off eating. D. I have a strong habit of eating when I'm bored. Nothing seems to help me breath the habit. Response Group 4: B Group 5 A. I'm usually physically hungry when I eat something. B. Occasionally, I eat something on impulse even though I really am not hungry. C. I have the regular habit of eating foods, that I might not really enjoy, to satisfy a hungry feeling even though physically, I don't need the food. D. Although I'm not physically hungry, I get a hungry feeling in my mouth that only seems to be satisfied when I eat a food, like sandwich, that fills my mouth. Sometimes, when I eat the food to satisfy my mouth hunger, I then spit the food out so I won't gain weight. Response Group 5: A Group 6 A. I don't feel any guilt or self-hate after I overeat. B. After I overeat, occasionally I feel guilt or self-hate. C. Almost all the time I experience strong guilt or self-hate after I overeat. Response Group 6: A Group 7 A. I don't lose total control of my eating when dieting even after periods when I overeat. B. Sometimes when I eat a forbidden food on a diet, I feel like I blew it and eat even more. C. Frequently, I have the habit of saying to myself, I've blown it now, why not go all the way, when I overeat on a diet. When that happens I eat more. D. I have a regular habit of starting a strict diets for myself but I break the diets by going on an eating binge. My life seems to be either a feast or famine. Response Group 7: A Group 8 A. I rarely eat so much food that I feel uncomfortably stuffed afterwards. B. Usually about once a month, I each such a quantity of food, I end up feeling very stuffed. C. I have regular periods during the month when I eat large amounts of food, either at mealtime or at snacks. D. I eat so much food that I regularly feel quite uncomfortable after eating and sometimes a bit nauseous. Response Group 8: A Group 9 A. My level of calorie intake does not go up very high or go down very low on a regular basis. B. Sometimes after I overeat, I will try to reduce my caloric intake to almost nothing to compensate for the excess calories I've eaten. C. I have a regular habit of overeating during the night. It seems that my routine is not to be hungry in the morning but overeat in the evening. D. In my adult years, I have had week-long periods where I practically starve myself. This follows periods when I overeat. It seems I live a life of either feast or famine. Response Group 9: B Group 10 A. I usually am able to stop eating when I want to. I know when enough is enough. B. Every so often, I experience a compulsion to eat which I can't seem to control. C. Frequently, I experience strong urges to eat which I seem unable to control, but at other times I can control my eating urges. D. I feel incapable of controlling urges to eat. I have a fear of not being able to stop eating voluntarily. Response Group 10: A Group 11 A. I don't have any problem stopping eating when I feel full. B. I usually can stop eating when I feel full but occasionally overeat leaving me feeling uncomfortably stuffed. C. I have a problem stopping eating once I start and usually I feel uncomfortably stuffed after I eat a meal. D. Because I have a problem not being able to stop eating when I want, I sometimes have to induce vomiting to relieve my stuffed feeling. Response Group 11: B Group 12 A. I seem to eat just as much when I'm with others, Family social gatherings as when I'm by myself. B. Sometimes, when I'm with other persons, I don't eat as much as I want to eat because I'm self-conscious about my eating. C. Frequently, I eat only a small amount of food when others are present, because I'm very embarrassed about my eating. D. I feel so ashamed about overeating that I pick times to overeat when I know no one will see me. I feel like a closet eater. Response Group 12: A Group 13 A. I eat three meals a day with only an occasional between meal snack. B. I eat 3 meals a day, but I also normally snack between meals. C. When I am snacking heavily, I get in the habit of skipping regular meals. D. There are regular periods when I seem to be continually eating, with no planned meals. Response Group 13: A Group 14 A. I don't think much about trying to control unwanted eating urges. B. At least some of the time, I feel my thoughts are pre-occupied with trying to control my eating urges. C. I feel that frequently I spend much time thinking about how much I ate or about trying not to eat anymore. D. It seems to me that most of my waking hours are pre-occupied by thoughts about eating or not eating. I feel like I'm constantly struggling not to eat. Response Group 14: D Group 15 A. I don't think about food a great deal. B. I have strong craving for food but they last only for brief periods of time. C. I have days when I can't seem to think about anything else but food. D. Most of my days seem to be pre-occupied with thoughts about food. I feel like I live to eat. Response Group 15: B Group 16 A. I usually know whether or not I'm physically hungry. I take the right portion of food to satisfy me. B. Occasionally, I feel uncertain about knowing whether or not I'm physically hungry. A these times it's hard to know how much food I should take to satisfy me. C. Even though I might know how many calories I should eat, I don't have any idea what is a normal amount of food for me. Response Group 16: C Binge Eating Score: 10 Score less than 17 Minimal Risk Score between 18-26 Moderate Risk Score between 27-46 High Risk Assessment & Plan Assessment & Plan (1) Anxiety disorder, unspecified: Code(s): F41.9 - Anxiety disorder, unspecified (2) Obesity: Code(s): E66.9 - Obesity, unspecified Qualifiers: Obesity type: due to excess calories Obesity classification: adult class 2 (BMI 35 - 39.9) Serious obesity comorbidity presence: with serious comorbidity Body mass index: BMI 36.0-36.9 Qualified Code(s): E66.01 - Morbid (severe) obesity due to excess calories; Z68.36 - Body mass index [BMI] 36.0-36.9, adult Plan Patient does not appear to have any serious barriers with her mental health. She is cleared for surgery when ready. Telehealth Telehealth Location of provider rendering services: other Location of patient: address on file Patient Identification confirmed using: Name, : Yes Telehealth method: voice only Patient verbally consented to treatment: Yes Patient verbally consented to billing insurance company: Yes Patient informed of any privacy concerns related to visit: Yes Minutes spent on Phone/Video with Pt.: 45 Coding Level of Care Code Tele Psy Diag Eval (33682) Diagnoses Anxiety disorder, unspecified F41.9 Class 2 severe obesity due to excess calories with serious comorbidity and body mass index (BMI) of 36.0 to 36.9 in adult E66.01; Z68.36 Obesity type: due to excess calories Obesity classification: adult class 2 (BMI 35 - 39.9) Serious obesity comorbidity presence: with serious comorbidity Body mass index: BMI 36.0-36.9 Time Spent (min) 45
== END 2023-12-20 13:45 | disposition home or self-care (01) ==
LOC: HO.HBST 13:23
PROVIDERS: PCP Internal Medicine; Visit Provider Counselor Mental Health
DX: F41.9 Anxiety disorder, unspecified (principal); E66.01 Morbid (severe) obesity due to excess calories; Z68.36 Body mass index [BMI] 36.0-36.9, adult
CPT/HCPCS: 90791

== ENCOUNTER → 2023-12-20 13:23 | Outpatient (BNVA) | payer OTHER, SELFPAY | PROVIDERS: PCP Internal Medicine; Visit Provider Counselor Mental Health | DX: E66.01 Morbid (severe) obesity due to excess calories (principal); Z68.36 Body mass index [BMI] 36.0-36.9, adult; F41.9 Anxiety disorder, unspecified | CPT/HCPCS: 90791 ==

== ENCOUNTER 2023-12-21 14:20 | Outpatient (AMB) | payer MEDICAID, SELFPAY ==
--- NOTE | 2023-12-21 14:12 | MHC.AMNUTRGE ---
Intake VS Expanded 12/21/23 14:30 Height 5 ft 4 in Weight 200 lb BMI 34.3 Intake Visit Reasons: VIDEO Initial Nutrition [facility] Liquefaction Supervisor Required: No Allergies penicillin V Allergy (Unknown, Verified 11/22/23 12:52) hives acarbose Adverse Reaction (Unknown, Verified 11/22/23 12:52) Flatulence topiramate [From Topamax] Adverse Reaction (Unknown, Verified 11/22/23 12:52) Facial Tingling shellfish Allergy (Unknown, Uncoded 11/22/23 12:52) Angioedema HPI Nutrition Presentation Reason for consult elevated BMI Diet Assmnt Details pt states she is following her nutrition plan, has no concerns. She is wondering what vegetables she can eat. I provided her a list adn we discussed the difference between starchy/non-starchy. [facility] online classes:completed Dietary counseling reduction Meal frequency regular: lunch (1-2pm meal ) and dinner and never: breakfast (coffee) Lifestyle Food frequency Dairy: several times weekly, Fruit: never, Vegetables: never, Grains/pasta/breads/cereal (carbs): daily, Meats/poultry/fish (protein): daily (pork, chicken wings ), Water: daily, Soda: never, Juice: never and Coffee: daily Diagnosis Nutrition problem #1 overweight/obesity As related to (etiology) #1 excess energy intake and physical inactivity As evidenced by (sign/symptom) #1 high BMI Monitoring/Goals Nutrition problem monitoring total energy intake, level of knowledge/skill, total PRO intake, total CHO intake, weight and oral fluids Learning/Education Readiness to learn fair Stages of change action Educational materials provided Yes Most Recent Diabetes Results: Cholesterol 200 mg/dL (<200) H 12/01/23 HDL Cholesterol 42 mg/dL (>40) 12/01/23 Triglycerides 126 mg/dL (<150) 12/01/23 Creatinine 0.66 mg/dL (0.5-1.4) 12/01/23 Blood Urea Nitrogen 16 mg/dL (9-16) 12/01/23 Sodium 140 mmol/L (135-145) 12/01/23 Potassium 4.1 mmol/L (3.3-5.1) 12/01/23 Chloride 107 mmol/L (96-108) 12/01/23 Carbon Dioxide 26 mmol/L (22-29) 12/01/23 Calcium 9.3 mg/dL (8.4-10.2) 12/01/23 AST 17 U/L (5-31) 12/01/23 ALT 14 U/L (0-31) 12/01/23 Total Protein 7.2 g/dL (6.5-8.0) 12/01/23 Albumin 4.2 g/dL (3.5-5.0) 12/01/23 PFS Medical History (Updated 12/20/23 @ 13:44 by Nelli Purcell) Intestinal malabsorption Migraines Insomnia Anxiety Depression DJD (degenerative joint disease) Hyperlipidemia Hypertension CAD (coronary artery disease) Obstructive sleep apnea treated with continuous positive airway pressure (CPAP) Hypoglycemia Anxiety and depression Anemia Seronegative rheumatoid arthritis Sleep apnea Asthma Surgical History (Updated 10/26/23 @ 15:30 by Andrey Gonzales, MARLYN) History of surgery on wrist Hx of appendectomy H/O total hip arthroplasty Hx of cataract extraction H/O gastric bypass Family History (Updated 10/26/23 @ 15:31 by Andrey Gonzales, MARLYN) Father Hypertension Asthma Depression Diabetes Mother Diabetes Hypertension Social History (Updated 06/04/23 @ 15:37 by Andreia Smallwood [facility]) Alcohol intake: current Alcohol intake frequency: holidays/special occasions only Patient Tobacco Use Status: Former Tobacco user Assessment & Plan Assessment & Plan (1) Obesity (BMI 30-39.9): Code(s): E66.9 - Obesity, unspecified Plan Patient is cleared from a nutrition standpoint for bariatric surgery. Educational requirements have been completed. Reviewed vitamin supplementation and commitment to protein shake for several months post surgery. Encouraged communication with office as needed Telehealth Telehealth Location of provider rendering services: practice address Location of patient: address on file Patient Identification confirmed using: Name, : Yes Telehealth method: voice only Patient verbally consented to treatment: Yes Patient verbally consented to billing insurance company: Yes Patient informed of any privacy concerns related to visit: Yes Minutes spent on Phone/Video with Pt.: 20 Coding Level of Care Code Nutr Indiv Intake (03429) Diagnoses Obesity (BMI 30-39.9) E66.9 Time Spent (min) 20
[2023-12-21 14:30] VITALS: BMI 34.3
== END 2023-12-21 14:36 | disposition home or self-care (01) ==
LOC: HO.HBS 14:21
PROVIDERS: PCP Internal Medicine; Visit Provider Dietitian, Registered
DX: E66.9 Obesity, unspecified (principal)

== ENCOUNTER → 2023-12-21 14:20 | Outpatient (BNVA) | payer MEDICAID, SELFPAY | PROVIDERS: PCP Internal Medicine; Visit Provider Dietitian, Registered | DX: E66.9 Obesity, unspecified (principal); Z68.34 Body mass index [BMI] 34.0-34.9, adult | CPT/HCPCS: 97802 ==

== ENCOUNTER 2023-12-22 | Outpatient (REF) | payer MEDICAID, SELFPAY | END 2023-12-22 00:01 | disposition home or self-care (01) | LOC: HO.LNP | PROVIDERS: Visit Provider Surgery | DX: Z13.89 Encounter for screening for other disorder (principal) | CPT/HCPCS: 83013 ==

== ENCOUNTER → 2023-12-22 13:43 | Outpatient (BNVA) | payer MEDICAID, SELFPAY | PROVIDERS: PCP Internal Medicine; Visit Provider Physician Assistant Surgical | DX: Z11.0 Encounter for screening for intestinal infectious diseases (principal) | CPT/HCPCS: 99211 ==

== ENCOUNTER 2023-12-29 09:58 | Day surgery (SDC) | payer MEDICAID, SELFPAY ==
[2023-12-27 09:32] VITALS: BMI 9270.8
--- NOTE | 2023-12-28 09:59 | P.CONAN_ITS ---
Documented by User: Antonietta Boss NP 12/28/23 10:03 HPI - Anesthesia Eval Consult details Narrative: 63yo F for Upper Endoscopy PMFSH Active Problems Active Problems: All Active Problems (Updated 12/20/23 @ 13:44 by Nelli Purcell) Anxiety disorder, unspecified (Acute) Vitamin B12 deficiency (Acute) Vitamin A deficiency (Acute) Vitamin D deficiency (Acute) Intestinal malabsorption (Acute) Migraines (Acute) Insomnia (Acute) Anxiety (Acute) Depression (Acute) DJD (degenerative joint disease) (Acute) Hyperlipidemia (Acute) Hypertension (Acute) CAD (coronary artery disease) (Acute) Obstructive sleep apnea treated with continuous positive airway pressure (CPAP) (Acute) BMI 36.0-36.9,adult (Acute) Obesity (Acute) Past Medical History Medical History Intestinal malabsorption Migraines Insomnia Anxiety Depression DJD (degenerative joint disease) Hyperlipidemia Hypertension CAD (coronary artery disease) Obstructive sleep apnea treated with continuous positive airway pressure (CPAP) Hypoglycemia Anxiety and depression Anemia Seronegative rheumatoid arthritis Sleep apnea Asthma Family History Family History Father Hypertension Asthma Depression Diabetes Mother Diabetes Hypertension Surgical History Surgical History History of surgery on wrist Hx of appendectomy H/O total hip arthroplasty Hx of cataract extraction H/O gastric bypass Social History Social History Alcohol intake: current Alcohol intake frequency: holidays/special occasions only Patient Tobacco Use Status: Former Tobacco user Use of substances other than those prescribed or required for medical reasons: No Are you DNR?: No Advance Directives: No Advance Directives Information Provided: Yes Meds Allergies Allergy/AdvReac Type Severity Reaction Status Date / Time penicillin V Allergy Unknown hives Verified 11/22/23 12:52 acarbose AdvReac Unknown Flatulence Verified 11/22/23 12:52 topiramate [From Topamax] AdvReac Unknown Facial Verified 11/22/23 12:52 Tingling shellfish Allergy Unknown Angioedema Uncoded 11/22/23 12:52 Home Medications Medication Instructions Recorded Confirmed Last Taken Type albuterol sulfate 90 mcg/actuation 2 puff inhalation Q4H PRN sob 06/04/23 12/29/23 12/29/23 History aerosol inhaler (Ventolin HFA) atorvastatin 80 mg tablet 80 mg PO BEDTIME 06/04/23 11/22/23 Unknown History escitalopram oxalate 20 mg tablet 20 mg PO DAILY 06/04/23 12/29/23 12/29/23 History (Lexapro) ferrous sulfate 325 mg (65 mg 325 mg PO DAILY 06/04/23 11/22/23 Unknown History iron) tablet fluticasone propionate 110 2 puff inhalation BID 06/04/23 11/22/23 Unknown History mcg/actuation HFA aerosol inhaler (Flovent HFA) hydroxyzine HCl 25 mg tablet 25 mg PO TID 06/04/23 11/22/23 Unknown History lorazepam 0.5 mg tablet (Ativan) 0.5 mg PO BEDTIME PRN 06/04/23 11/22/23 Unknown History mirabegron 50 mg tablet,extended 50 mg PO DAILY 06/04/23 11/22/23 Unknown History release 24 hr (Myrbetriq) prazosin 1 mg capsule 1 mg PO TID 06/04/23 11/22/23 Unknown History propranolol 160 mg capsule,24 160 mg PO DAILY 06/04/23 11/22/23 Unknown History hr,extended release topiramate 50 mg tablet 50 mg PO BID 06/04/23 11/22/23 Unknown History zolpidem 10 mg tablet (Ambien) 10 mg PO BEDTIME 06/04/23 11/22/23 Unknown History blood sugar diagnostic (FreeStyle #10 ea 10/26/23 11/22/23 Unknown History Lite Strips) blood-glucose meter (FreeStyle #1 ea 10/26/23 11/22/23 Unknown History [place] Lite kit) lancets 28 gauge (FreeStyle #100 ea 10/26/23 11/22/23 Unknown History Lancets) loratadine 10 mg tablet (Claritin) 10 mg PO DAILY 10/26/23 12/29/23 12/29/23 History mometasone 0.1 % topical cream 1 appl topical DAILY 10/26/23 11/22/23 Unknown H istory sennosides 8.6 mg capsule (senna) 8.6 mg PO DAILY 10/26/23 11/22/23 Unknown History valacyclovir 1 gram tablet 1,000 mg PO DAILY 10/26/23 11/22/23 Unknown History (Valtrex) Exam Height,Weight and Vital Signs: Height 4 in Weight 95.708 kg Pertinent Lab Results Pertinent Lab Results: Laboratory Tests 12/01/23 13:15 WBC 5.2 Hgb 12.7 Hct 39.1 Plt Count 266 Sodium 140 Potassium 4.1 Chloride 107 Carbon Dioxide 26 BUN 16 Creatinine 0.66 Narrative Narrative: EKG 11/2023 Vent. Rate : 061 BPM Atrial Rate : 061 BPM P-R Int : 164 ms QRS Dur : 102 ms QT Int : 408 ms P-R-T Axes : 011 -09 026 degrees QTc Int : 410 ms Normal sinus rhythm Normal ECG No previous ECGs available Assessment and Plan Assessment Anesthesia Assessment: Chart Reviewed Documented by User: Chloé Stapleton MD 12/29/23 11:08 [facility] Past Medical History Medical History Intestinal malabsorption Migraines Insomnia Anxiety Depression DJD (degenerative joint disease) Hyperlipidemia Hypertension CAD (coronary artery disease) Obstructive sleep apnea treated with continuous positive airway pressure (CPAP) Hypoglycemia Anxiety and depression Anemia Seronegative rheumatoid arthritis Sleep apnea Asthma Family History Family History Father Hypertension Asthma Depression Diabetes Mother Diabetes Hypertension Surgical History Surgical History History of surgery on wrist Hx of appendectomy H/O total hip arthroplasty Hx of cataract extraction H/O gastric bypass History of Problems with Anesthesia: No Social History Social History Alcohol intake: current Alcohol intake frequency: holidays/special occasions only Patient Tobacco Use Status: Former Tobacco user Use of substances other than those prescribed or required for medical reasons: No Are you DNR?: No Advance Directives: No Advance Directives Information Provided: Yes Meds Allergies Allergy/AdvReac Type Severity Reaction Status Date / Time penicillin V Allergy Unknown hives Verified 11/22/23 12:52 acarbose AdvReac Unknown Flatulence Verified 11/22/23 12:52 topiramate [From Topamax] AdvReac Unknown Facial Verified 11/22/23 12:52 Tingling shellfish Allergy Unknown Angioedema Uncoded 11/22/23 12:52 Home Medications Medication Instructions Recorded Confirmed Last Taken Type albuterol sulfate 90 mcg/actuation 2 puff inhalation Q4H PRN sob 06/04/23 12/29/23 12/29/23 History aerosol inhaler (Ventolin HFA) atorvastatin 80 mg tablet 80 mg PO BEDTIME 06/04/23 11/22/23 Unknown History escitalopram oxalate 20 mg tablet 20 mg PO DAILY 06/04/23 12/29/23 12/29/23 History (Lexapro) ferrous sulfate 325 mg (65 mg 325 mg PO DAILY 06/04/23 11/22/23 Unknown History iron) tablet fluticasone propionate 110 2 puff inhalation BID 06/04/23 11/22/23 Unknown History mcg/actuation HFA aerosol inhaler (Flovent HFA) hydroxyzine HCl 25 mg tablet 25 mg PO TID 06/04/23 11/22/23 Unknown History lorazepam 0.5 mg tablet (Ativan) 0.5 mg PO BEDTIME PRN 06/04/23 11/22/23 Unknown History mirabegron 50 mg tablet,extended 50 mg PO DAILY 06/04/23 11/22/23 Unknown History release 24 hr (Myrbetriq) prazosin 1 mg capsule 1 mg PO TID 06/04/23 11/22/23 Unknown History propranolol 160 mg capsule,24 160 mg PO DAILY 06/04/23 11/22/23 Unknown History hr,extended release topiramate 50 mg tablet 50 mg PO BID 06/04/23 11/22/23 Unknown History zolpidem 10 mg tablet (Ambien) 10 mg PO BEDTIME 06/04/23 11/22/23 Unknown History blood sugar diagnostic (FreeStyle #10 ea 10/26/23 11/22/23 Unknown History Lite Strips) blood-glucose meter (FreeStyle #1 ea 10/26/23 11/22/23 Unknown History [place] Lite kit) lancets 28 gauge (FreeStyle #100 ea 10/26/23 11/22/23 Unknown History Lancets) loratadine 10 mg tablet (Claritin) 10 mg PO DAILY 10/26/23 12/29/23 12/29/23 History mometasone 0.1 % topical cream 1 appl topical DAILY 10/26/23 11/22/23 Unknown History sennosides 8.6 mg capsule (senna) 8.6 mg PO DAILY 10/26/23 11/22/23 Unknown History valacyclovir 1 gram tablet 1,000 mg PO DAILY 10/26/23 11/22/23 Unknown History (Valtrex) Exam Airway Mallampati Class: II TM Dist: >3cm Neck ROM: Full Loose/Missing/Broken Teeth: No Heart: RRR Lungs: CTA Assessment and Plan Assessment Anesthesia Assessment: Anesthesia Plan Discussed Final Anesthetic Review History of Problems with Anesthesia: No NPO: Yes ASA Class: III Final Preanesthetic Review: Meds/Allgs Chart Reviewed, Consent Obtained/Reviewed and Anes Risks/Benef Reviewed Patient Risk: Intermediate Procedure Risk: Intermediate Anesthetic Plan Anesthetic Plan: MAC: Disposition: Standard PACU
[2023-12-29 10:48] VITALS: BMI 34.6
--- NOTE | 2023-12-29 11:05 | PM.OP ---
Brief Operative Note Date of Service: 12/29/23 Pre-op diagnosis: Obesity, s/p gastric bypass Post-op diagnosis: same Procedure: PROCEDURE DATE: ?12/29/2023 PREOPERATIVE DIAGNOSIS: Obesity, s/p gastric bypass POSTOPERATIVE DIAGNOSIS: ?Same as above. 1) Redundant gastric pouch, 2) Gastritis PROCEDURE: Deapucpb-kuqiwa-tlpahndhocy with biopsies Surgeon: ?Manish Cheung M.D.. Ph.D. Mems Integration Engineer: ?None ? Anesthesia: IV sedation Estimated blood loss: ?Minimal FINDINGS AND PROCEDURE: ? OPERATIVE INDICATIONS: ?The patient is a 63 year old female known to me who underwent a laparoscopic gastric bypass at [facility] by Dr. Bravo. The patient had inadequate weight loss so far.? Based on this information I recommended an upper endoscopy to evaluate the patient's symptoms.? Risks and complications of the surgery were discussed with the patient in advance particularly the possibility of perforation or bleeding that may require surgical intervention. The patient understood the risks and was in agreement with the plan. ? PROCEDURE: After informed consent was obtained by the patient, the patient was ?transferred to the Operating Room and was placed in the supine position.? After successful induction of IV sedation, a mouth block was placed and the patient was placed in the left lateral decubitus position. An upper endoscopy was performed next, the oropharynx and esophagus appeared within the normal limits. There was no hiatal hernia.? The z-line was smooth. Two biopsies were obtained from the distal esophagus 2-3 cm proximal to the GE junction and two biopsies from the GE junction. The small pouch was entered. it was somewhat enlarged and retroflexion could be performed. There was also mild redundancy proximally. There was gastritis present. The gastrojejunostomy was patent. A biopsy was obtained from the gastric pouch. No significant bleeding was noted from any of the biopsy sites. There was no anastomotic ulcer.? At that point the scope was advanced into the proximal small intestine (proximal Haresh limb) for another 15cm which appeared to be normal as well. The Haresh limb and the pouch were decompressed and the scope was withdrawn from the patient's mouth. The patient was awaken and was transferred in stable condition to the Recovery Room for further care. I was present and performed all steps of the procedure. There were no residents to assist with this case. Manish Cheung M.D., Ph.D. Surgeon: Ashwin Cheung MD Anesthesia: MAC Was an Mems Integration Engineer used for this Procedure?: No Estimated blood loss (mL): 0 IV fluids (mL): 400 Urine output (mL): 0 (No Wong to record output) Pathology: other (1) Gastric pouch x1, 2) GE junction x2, 3) distal esophagus x2) Condition: stable Disposition: PACU
--- NOTE | 2023-12-29 11:05 | MHC.SHP ---
Pre-Procedural Eval Section A - 24 Hr Update-Section A only Date of Service: 12/29/23 The patient is an INPATIENT: No The patient has been examined within 24 hours of the surgical procedure. The History & Physical has been completed within 30 days and I have reviewed it.: Yes Section B - Complete if H&P > 30 days Chief Complaint: obesity Relevant Family History (Specify if Yes): No Relevant Social History: None Present Medications: None Medical History: No relevant PMH History of Previous Operations: Relevant previous surgery/procedure and date(s) (s/p laparoscopic gastric bypass) Allergies: Allergies Allergy/AdvReac Type Severity Reaction Status Date / Time penicillin V Allergy Unknown hives Verified 11/22/23 12:52 acarbose AdvReac Unknown Flatulence Verified 11/22/23 12:52 topiramate [From Topamax] AdvReac Unknown Facial Verified 11/22/23 12:52 Tingling shellfish Allergy Unknown Angioedema Uncoded 11/22/23 12:52 Review of Systems Sugical H&P ROS: Negative: Constitution, Cardiovascular, Respiratory, Neurological, Psychiatric, Hem-Onc, Allergic/Immunologic, Gastrointestinal, Genitourinary, Musculoskeletal, Integumentary, Endocrine and Eyes/Ears/Nose/Throat Exam Surgical H&P Exam: Normal: HEENT, Normal: Heart, Normal: Lungs, Normal: Extremities, Normal: Abdomen, Normal: Skin and Normal: Neurological Plan Diagnosis/Plan: Unchanged (EGD to assess the anatomy of the gastric pouch of the gastric bypass. Risks and complications were discussed with the patient in advance including bleeding and perforation.) I have reviewed the history and physical and performed a pertinent physical examination on my patient. No changes have occurred unless specified. Time Spent With Patient Time: Total time managing care of this patient today ____ minutes.
[2023-12-29 11:14] VITALS: BP 119/64; PULSE 60; RESP 16; TEMP 36.1; O2SAT 94
[2023-12-29] MEDS: Lactated Ringers 1,000 ML 100 ML IVCONT (11:23)
[2023-12-29 12:19] VITALS: BP 93/42; PULSE 63; RESP 16; TEMP 36.6; O2SAT 84
[2023-12-29 12:34] VITALS: BP 106/49; PULSE 54; RESP 9; O2SAT 94
[2023-12-29 12:49] VITALS: BP 118/49; PULSE 51; RESP 12; O2SAT 96
== END 2023-12-29 13:42 | disposition home or self-care (01) ==
PROVIDERS: PCP Internal Medicine; Visit Provider Surgery
PROC: 0DJ08ZZ Inspection of Upper Intestinal Tract, Via Natural or Artificial Opening Endoscopic (ICD-10-PCS; CPT 43235; principal; 2023-12-29 11:40)
DX: E66.01 Morbid (severe) obesity due to excess calories (principal); Z68.36 Body mass index [BMI] 36.0-36.9, adult; Z98.84 Bariatric surgery status; K95.89 Other complications of other bariatric procedure; K29.50 Unspecified chronic gastritis without bleeding; B96.81 Helicobacter pylori [H. pylori] as the cause of diseases classified elsewhere; K90.9 Intestinal malabsorption, unspecified; I10 Essential (primary) hypertension; I25.10 Atherosclerotic heart disease of native coronary artery without angina pectoris; E78.5 Hyperlipidemia, unspecified; F41.8 Other specified anxiety disorders; M06.00 Rheumatoid arthritis without rheumatoid factor, unspecified site; M19.90 Unspecified osteoarthritis, unspecified site; J45.909 Unspecified asthma, uncomplicated; G47.33 Obstructive sleep apnea (adult) (pediatric); Z79.51 Long term (current) use of inhaled steroids; Z79.899 Other long term (current) drug therapy; Z99.89 Dependence on other enabling machines and devices; Z88.0 Allergy status to penicillin; Z88.8 Allergy status to other drugs, medicaments and biological substances; Z87.891 Personal history of nicotine dependence
CPT/HCPCS: 43239; 88305; 88313; 88342; J2250; J2704

== ENCOUNTER → 2023-12-29 09:58 | Outpatient (BNV) | payer MEDICAID, SELFPAY | PROVIDERS: PCP Internal Medicine; Visit Provider Surgery | DX: K95.89 Other complications of other bariatric procedure (principal); Z98.84 Bariatric surgery status; K29.70 Gastritis, unspecified, without bleeding | CPT/HCPCS: 43239 ==

== ENCOUNTER 2024-01-10 08:09 | Outpatient (AMB) | payer MEDICAID, SELFPAY ==
--- NOTE | 2024-01-10 12:00 | A.OFFVIS_ITS ---
Intake VS Expanded 01/10/24 12:07 Height 5 ft 4 in Weight 196 lb 6 oz BMI 33.7 Body Fat % 45 Body Fat Mass 88.4 Fat Free Mass 108.2 Visceral Fat Rating 16 Body Water % 37.7 Body Water Mass 74.1 Basal Metabolic Rate/Score 1,428 Intake Visit Reasons: TV Follow Up SWL Allergies penicillin V Allergy (Unknown, Verified 11/22/23 12:52) hives acarbose Adverse Reaction (Unknown, Verified 11/22/23 12:52) Flatulence topiramate [From Topamax] Adverse Reaction (Unknown, Verified 11/22/23 12:52) Facial Tingling shellfish Allergy (Unknown, Uncoded 11/22/23 12:52) Angioedema HPI TV Follow Up SWL HPI Details Start time: 11.53am, End time: 12.13pm ?I spent 15 minutes speaking with the patient on the phone plus an additional 5 minutes reviewing and updating records for a total of 20 minutes HPI Comments History of Present Illness Details Overall weight loss: 13lbs, or 6.2% TBWL Is doing 2 Celebrate Rebuild protein shakes (1 scoop in 8oz almond milk) and 2 Celebrate protein bars and one meal (6 forks of protein and 6 forks of salad or vegetables) Exercise: is doing the stationary bike for 300 calories x5/week PFSH Medical History Intestinal malabsorption Migraines Insomnia Anxiety Depression DJD (degenerative joint disease) Hyperlipidemia Hypertension CAD (coronary artery disease) Obstructive sleep apnea treated with continuous positive airway pressure (CPAP) Hypoglycemia Anxiety and depression Anemia Seronegative rheumatoid arthritis Sleep apnea Asthma Surgical History History of surgery on wrist Hx of appendectomy H/O total hip arthroplasty Hx of cataract extraction H/O gastric bypass Family History Father Hypertension Asthma Depression Diabetes Mother Diabetes Hypertension Social History Alcohol intake: current Alcohol intake frequency: holidays/special occasions on ly Patient Tobacco Use Status: Former Tobacco user Assessment & Plan Assessment & Plan (1) Obesity: Code(s): E66.9 - Obesity, unspecified Qualifiers: Obesity type: due to excess calories Obesity classification: adult class 2 (BMI 35 - 39.9) Serious obesity comorbidity presence: with serious comorbidity Body mass index: BMI 36.0-36.9 Qualified Code(s): E66.01 - Morbid (severe) obesity due to excess calories; Z68.36 - Body mass index [BMI] 36.0- 36.9, adult Plan: 1. Change nutritional plan to one Celebrate Rebuild with HALF scoop in 8oz almond milk at 9am-11am, another Celebrate Rebuild protein shakes (1 scoop in 8oz almond milk) at 12pm-2pm, one Celebrate protein bar at 3pm-5pm, dinner at 6pm (6 forks of protein and 6 forks of salad or vegetables), HALF Celebrate bar at 7pm-8pm and one more Celebrate bar at 8pm-10pm. 2. Exercise: continue the stationary bike 5 days per week but increase to 400 calories 3. Continue to send me weight measurements weekly on Wednesdays Telehealth Telehealth Location of provider rendering services: practice address Location of patient: address on file Patient Identification confirmed using: Name, : Yes Telehealth method: voice only Patient verbally consented to treatment: Yes Patient verbally consented to billing insurance company: Yes Patient informed of any privacy concerns related to visit: Yes Minutes spent on Phone/Video with Pt.: 20 Coding Level of Care Code Tele Est Pt Level 3 (08954) Diagnoses Class 2 severe obesity due to excess calories with serious comorbidity and body mass index (BMI) of 36.0 to 36.9 in adult E66.01; Z68.36 Obesity type: due to excess calories Obesity classification: adult class 2 (BMI 35 - 39.9) Serious obesity comorbidity presence: with serious comorbidity Body mass index: BMI 36.0-36.9 Time Spent (min) 20
[2024-01-10 12:07] VITALS: BMI 33.7
== END 2024-01-10 12:14 | disposition home or self-care (01) ==
LOC: HO.HBS 08:10
PROVIDERS: PCP Internal Medicine; Visit Provider Surgery
DX: E66.09 Other obesity due to excess calories (principal); Z68.33 Body mass index [BMI] 33.0-33.9, adult
CPT/HCPCS: 99213

== ENCOUNTER → 2024-01-10 08:09 | Outpatient (BNVA) | payer MEDICAID, SELFPAY | PROVIDERS: PCP Internal Medicine; Visit Provider Surgery ==

== ENCOUNTER 2024-01-17 11:15 | Outpatient (AMB) | payer OTHER, SELFPAY ==
--- NOTE | 2024-01-17 15:07 | MHC.WMTHER ---
Intake Intake Visit Reasons: (TV) BH F/U Allergies penicillin V Allergy (Unknown, Verified 11/22/23 12:52) hives acarbose Adverse Reaction (Unknown, Verified 11/22/23 12:52) Flatulence topiramate [From Topamax] Adverse Reaction (Unknown, Verified 11/22/23 12:52) Facial Tingling shellfish Allergy (Unknown, Uncoded 11/22/23 12:52) Angioedema PFSH Medical History Intestinal malabsorption Migraines Insomnia Anxiety Depression DJD (degenerative joint disease) Hyperlipidemia Hypertension CAD (coronary artery disease) Obstructive sleep apnea treated with continuous positive airway pressure (CPAP) Hypoglycemia Anxiety and depression Anemia Seronegative rheumatoid arthritis Sleep apnea Asthma Surgical History History of surgery on wrist Hx of appendectomy H/O total hip arthroplasty Hx of cataract extraction H/O gastric bypass Family History Father Hypertension Asthma Depression Diabetes Mother Diabetes Hypertension Social History Alcohol intake: current Alcohol intake frequency: holidays/special occasions only Patient Tobacco Use Status: Former Tobacco user Behavioral Health Assessment Weight Management Therapy Therapy Notes Details Pt stated that overall she is doing well, struggling with some negative thoughts regarding 2 ounce gain on the scale and interaction with provider. Pt is looking to have weight loss surgery to help improve her health and quality of life. She sees a psychiatrist from [facility] in [place] who prescribes her medication for anxiety, panic and depression. she reported over 20 years ago she was hospitalized for mental health reasons. She has no reported history of problems with drugs or alcohol. Presenting Concerns Referral Source provider Reason for referral weight loss surgery evaluation Precipitating Event obesity Living Situation Current Living Situation Rent At risk of losing current housing? No Satisfied with current living situation? Yes Comments Pt lives alone with her dog. Food/Weight/Diet Expectations of change weight loss and maintenance History/Relationship with food Pt reported that she would skip meal in the morning and just have coffee, around 2pm she would eat, sandwich, leftovers, rice, struggles with sweets, will often bake and have to give it away, cookies before bed or bag of popcorn, whipped cream History/Relationship with weight Pt reported that she has struggled with her weight for most of her life. History/Relationship with dieting pills, keto, nutrisystem, slimfast, gastric bypass 2004. 255>175lbsfor about 3 years and then she started to gain weight again. Binge Eating Do you frequently eat large amounts of food in short periods of time, not feeling physically hungry? No Do you feel out of control when you eat a large amount of food in a short period of time? No Do you eat large amounts of food rapidly and typically alone? No Night Eating Do you wake up at least once during the night to eat? No If you wake up in the night, do you find that it is necessary to eat something in order to fall back asleep? No Do you have little or no appetite in the morning and feel very hungry in the evening, often overeating between dinner and when you go to bed? Yes Social History Family history and relationship Pt is and had two children. She reported that her oldest two years ago. Her son lives locally. She has three grandchildren and watches her 9 year old granddaughter often. 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 none Education Highest grade completed completed high school Preferred learning style Auditory, Verbal, Written, Learn by doing and Visual Currently enrolled in educational program? No Interested in further educational program? No Employment Employment Status Unemployed Wants help to find employment? No Meaningful activities taking care of her dog, grocery shopping Financial Situation Describe current financial situation Occasional struggle Financial assistance? SSDI Service Service? No Mental Health and Addiction Treatment Current/Past substance abuse? No Current/Past addictive behavior concerns? No Medical and Physical Health Summary Physical exam in the last year? Yes Pain Screening Current pain? Yes Pain in the last few months? Yes Medications Is the patient compliant with medications? Yes Does the patient have Lees Guardian in place? Not applicable Does the patient use complimentary health approaches? No Assessment & Plan Assessment & Plan (1) Anxiety disorder, unspecified: Code(s): F41.9 - Anxiety disorder, unspecified (2) Obesity: Code(s): E66.9 - Obesity, unspecified Qualifiers: Obesity type: due to excess calories Obesity classification: adult class 2 (BMI 35 - 39.9) Serious obesity comorbidity presence: with serious comorbidity Body mass index: BMI 36.0-36.9 Qualified Code(s): E66.01 - Morbid (severe) obesity due to excess calories; Z68.36 - Body mass index [BMI] 36.0-36.9, adult Plan Patient does not appear to have any serious barriers with her mental health. She is cleared for surgery when ready. Telehealth Telehealth Location of provider rendering services: practice address Location of patient: address on file Patient Identification confirmed using: Name, : Yes Telehealth method: voice only Patient verbally consented to treatment: Yes Patient verbally consented to billing insurance company: Yes Patient informed of any privacy concerns related to visit: Yes Minutes spent on Phone/Video with Pt.: 25 Coding Level of Care Code Tele Psytx 30 mins (38689) Diagnoses Anxiety disorder, unspecified F41.9 Class 2 severe obesity due to excess calories with serious comorbidity and body mass index (BMI) of 36.0 to 36.9 in adult E66.01; Z68.36 Obesity type: due to excess calories Obesity classification: adult class 2 (BMI 35 - 39.9) Serious obesity comorbidity presence: with serious comorbidity Body mass index: BMI 36.0-36.9 Time Spent (min) 25
== END 2024-01-17 15:07 | disposition home or self-care (01) ==
LOC: HO.HBST 11:15
PROVIDERS: PCP Internal Medicine; Visit Provider Counselor Mental Health
DX: F41.9 Anxiety disorder, unspecified (principal); E66.01 Morbid (severe) obesity due to excess calories; Z68.36 Body mass index [BMI] 36.0-36.9, adult
CPT/HCPCS: 90832

== ENCOUNTER → 2024-01-17 11:15 | Outpatient (BNVA) | payer MEDICAID, SELFPAY | PROVIDERS: PCP Internal Medicine; Visit Provider Counselor Mental Health ==

== ENCOUNTER 2024-01-28 10:00 | Outpatient (REF) | payer MEDICAID, SELFPAY ==
--- NOTE | ~2024-01-28 | FL_ITS ---
EXAMINATION: XR FLUOROSCOPY UPPER GI WITH AIR CLINICAL INFORMATION: Preop evaluation prior to bariatric surgery. History of gastric bypass COMPARISON: None TECHNIQUE: Fluoroscopic air contrast upper GI examination was performed utilizing standard techniques with thin and thick barium and effervescent granules. Numerous spot images were obtained. FINDINGS: Dual and single contrast images of the esophagus demonstrate normal caliber, contour, and mucosal pattern. There appears to be a partial esophageal web at the upper esophageal sphincter, best seen (RF 1-6, image 65 of 170). This appears to not be causing significant obstruction. Small filling defect in the upper one third of the esophagus persists and could represent a small ulceration (RF 1-2, image 25 of 66). No gross masses or strictures. Esophageal peristalsis was mildly disorganized. No evidence of hiatus hernia identified. No significant gastroesophageal reflux was seen during the course of the examination and on reflux views. Dual contrast and single contrast images of the stomach demonstrate post surgical changes consistent with prior history of Haresh-en-Y gastric bypass. Gastric pouch mucosa appears normal without evidence of mass, ulceration, or other abnormality. The gastrojejunostomy is patent. Contrast freely passed into the alimentary limb. The imaged jejunum has a normal fold pattern and caliber. FLUOROSCOPY TIME: 3 minutes 3 seconds Number of Spot Images: 19 Number of Cine: 6 DOSE AREA PRODUCT: 1919 uGy-m2 (microgray-meter squared) FL/FL upper GI w air IMPRESSION: 1. Mildly disorganized esophageal peristalsis. 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 2. Possible small ulcer in the upper one third of the esophagus. 3. Posttreatment changes consistent with prior history of Haresh-en-Y gastric bypass. 4. Patent gastrojejunostomy. No strictures noted This procedure was performed by Jose Feliciano PA-C, and supervised by Dr. Rust
== END 2024-01-28 10:01 | disposition home or self-care (01) ==
LOC: HO.XRAY 10:00
PROVIDERS: PCP Internal Medicine; Visit Provider Surgery
DX: E66.9 Obesity, unspecified (principal); Z68.36 Body mass index [BMI] 36.0-36.9, adult; K90.9 Intestinal malabsorption, unspecified
CPT/HCPCS: 74246

== ENCOUNTER → 2024-01-28 10:04 | Outpatient (BNV) | payer MEDICAID, SELFPAY | PROVIDERS: PCP Internal Medicine; Visit Provider Physician Assistant Surgical | DX: Z01.818 Encounter for other preprocedural examination (principal); E66.9 Obesity, unspecified | CPT/HCPCS: 74246 ==

== ENCOUNTER → 2024-02-07 08:16 | Outpatient (BNVA) | payer MEDICAID, SELFPAY | PROVIDERS: PCP Internal Medicine; Visit Provider Surgery ==

== ENCOUNTER → 2024-02-07 08:16 | Outpatient (AMB) | payer MEDICAID, SELFPAY ==
--- NOTE | 2024-02-07 09:50 | A.OFFVIS_ITS ---
Intake VS Expanded 02/07/24 09:59 Height 5 ft 4 in Weight 191 lb 4 oz BMI 32.8 Body Fat % 43.6 Body Fat Mass 83.4 Fat Free Mass 108 Visceral Fat Rating 15 Body Water % 38.7 Body Water Mass 74 Basal Metabolic Rate/Score 1,431 Intake Visit Reasons: TV Follow Up SWL Allergies penicillin V Allergy (Unknown, Verified 11/22/23 12:52) hives acarbose Adverse Reaction (Unknown, Verified 11/22/23 12:52) Flatulence topiramate [From Topamax] Adverse Reaction (Unknown, Verified 11/22/23 12:52) Facial Tingling shellfish Allergy (Unknown, Uncoded 11/22/23 12:52) Angioedema Medication List - Last Reconciled 02/07/24 by Ashwin Cheung MD albuterol sulfate 90 mcg/actuation (Ventolin HFA) 2 puffs inhalation Q4H PRN atorvastatin 80 mg PO BEDTIME blood sugar diagnostic (FreeStyle Lite Strips) As directed blood-glucose meter (FreeStyle [place] Lite kit) As directed cholecalciferol (vitamin D3) 125 mcg PO DAILY clarithromycin 500 mg PO Q12H escitalopram oxalate (Lexapro) 20 mg PO DAILY ferrous sulfate 325 mg PO DAILY fluticasone propionate 110 mcg/actuation (Flovent HFA) 2 puffs inhalation BID hydroxyzine HCl 25 mg PO TID lancets (FreeStyle Lancets) As directed loratadine (Claritin) 10 mg PO DAILY lorazepam (Ativan) 0.5 mg PO BEDTIME PRN mecobalamin (vitamin B12) 1,000 mcg sublingual DAILY metronidazole 500 mg PO Q8H mirabegron ER (Myrbetriq) 50 mg PO DAILY mometasone 0.1% 1 appl topical DAILY omeprazole 40 mg PO DAILY prazosin 1 mg PO TID propranolol ER 160 mg PO DAILY sennosides (senna) 8.6 mg PO DAILY topiramate 50 mg PO BID valacyclovir (Valtrex) 1,000 mg PO DAILY vitamin A palmitate 10,000 units PO DAILY zolpidem (Ambien) 10 mg PO BEDTIME HPI TV Follow Up SWL HPI Details Start time: 9.37am, End time: 10.07am ?I spent 25 minutes speaking with the patient on the phone plus an additional 5 minutes reviewing and updating records for a total of 30 minutes HPI Comments History of Present Illness Details Overall weight loss: 18.2lbs, or 8.68% TBWL Is doing 2 Celebrate Rebuild protein shakes (1 scoop each in almond milk), 2 Celebrate protein bars and one meal (6 forks of meat and 6 forks of salad or vegetables) Exercise: is doing the stationary bike for 400 calories daily Patient has gallstones and we discussed today that the treatment of complications of cholelithiasis after gastric bypass can be complicated and therefore it is recommended that she should undergo elective cholecystectomy [facility] Medical History Intestinal malabsorption Migraines Insomnia Anxiety Depression DJD (degenerative joint disease) Hyperlipidemia Hypertension CAD (coronary artery disease) Obstructive sleep apnea treated with continuous positive airway pressure (CPAP) Hypoglycemia Anxiety and depression Anemia Seronegative rheumatoid arthritis Sleep apnea Asthma Surgical History History of surgery on wrist Hx of appendectomy H/O total hip arthroplasty Hx of cataract extraction H/O gastric bypass Family History Father Hypertension Asthma Depression Diabetes Mother Diabetes Hypertension Social History Alcohol intake: current Alcohol intake frequency: holidays/special occasions only Patient Tobacco Use Status: Former Tobacco user Assessment & Plan Assessment & Plan (1) Cholelithiasis: Code(s): K80.20 - Calculus of gallbladder without cholecystitis without obstruction Qualifiers: Cholelithiasis location: gallbladder Cholecystitis presence: without cholecystitis Biliary obstruction: without biliary obstruction Qualified Code(s): K80.20 - Calculus of gallbladder without cholecystitis without obstruction Plan: 1. The patient was not aware of having a cholelithiasis. We discussed in detail the importance of this finding in relation to the type of bariatric surgery that she has. Because gastric bypass alters the anatomy of the UGI tract, it will l imit our ability for non-surgical interventions related to complications of cholelithiasis or cholecystectomy such as ERCP and for this reason I recommend elective removal of the gallbladder before symptoms occur. This is not as necessary if a sleeve gastrectomy is performed. We also discussed that the upcoming revision bariatric surgery may accelerate the onset of symptoms of cholelithiasis and that is why elective cholecystectomy in indicated and recommended. We discussed in detail the potential complications and their management including bleeding, bile leak, pancreatitis and major bile duct injury. 2. Continue same nutritional plan of 2 Celebrate Rebuild protein shakes (1 scoop each in almond milk), 2 Celebrate protein bars and one meal (6 forks of meat and 6 forks of salad or vegetables) 3. Exercise: continue the stationary bike for 400 calories daily 4. Continue to send me weight measurements weekly on Fridays 5. Avoid aspirin and all NSAIDs Medications: New sennosides (senna) 8.6 mg PO DAILY 90 caps 0RF K59.00 - Constipation, unspecified Telehealth Telehealth Location of provider rendering services: practice address Location of patient: address on file Patient Identification confirmed using: Name, : Yes Telehealth method: voice only Patient verbally consented to treatment: Yes Patient verbally consented to billing insurance company: Yes Patient informed of any privacy concerns related to visit: Yes Minutes spent on Phone/Video with Pt.: 30 Coding Level of Care Code Tele Est Pt Level 4 (36638) Diagnoses Calculus of gallbladder without cholecystitis without obstruction K80.20 Cholelithiasis location: gallbladder Cholecystitis presence: without cholecystitis Biliary obstruction: without biliary obstruction Time Spent (min) 30
[2024-02-07 09:59] VITALS: BMI 32.8
== END ==
PROVIDERS: PCP Internal Medicine; Visit Provider Surgery
DX: K80.20 Calculus of gallbladder without cholecystitis without obstruction (principal)
CPT/HCPCS: 99214

== ENCOUNTER 2024-02-08 09:45 | Outpatient (REF) | payer MEDICAID, SELFPAY ==
[2024-02-09 14:13] LABS: H Pylori Breath Test Negative (Negative)
== END 2024-02-08 09:46 | disposition home or self-care (01) ==
LOC: HO.LNP 09:45
PROVIDERS: PCP Internal Medicine; Visit Provider Physician Assistant Surgical
DX: Z01.818 Encounter for other preprocedural examination (principal)
CPT/HCPCS: 83013; 99211

== ENCOUNTER 2024-02-16 08:26 | Outpatient (AMB) | payer MEDICAID, SELFPAY ==
--- OUTSIDE RECORDS SUMMARY | 2024-02-16 08:30 | XMS_ITS | Continuity of Care Document ---
Author Name Unknown Organization [facility] Address [address] [place] [address]- Care Team Providers Care Information [employer] Name Role Phone Fabián MARTINEZ, Modesta Flores Primary Care Physician Encounter [facility] Date(s): 02/01/24 - 02/01/[address] [address]- Discharge Disposition: A-D/C Home Attending Physician: Ladonna Friedman MD Admitting Physician: Ladonna Friedman MD Referring Physician: Ladonna Friedman MD Allergies, Adverse Reactions, Alerts Substance Reaction Severity [...] tablet, By Mouth, Daily, # 30 tablet, 11 Refills, Maintenance, 01/03/24 17:01:00 EST, [facility]/pharmacy #[id number], 160, cm, 10/13/23 14:16:00 EST, Height, 96.3, kg, 08/04/22 6:38:00 EDT, Dry Weight Start Date: 01/03/24 Status: Ordered Ativan 0.5 mg oral tablet 2 tablet = 1 mg, By Mouth, Daily at bedtime, PRN as needed for anxiety, 0 Refills, Maintenance, 08/03/16 10:56:56 EDT Start Date: 08/03/16 Status: Ordered atorvastatin 40 mg oral tablet 1 tablet = 40 mg, By Mouth, Daily, # 90 tablet, 3 Refills, Maintenance, 06/25/21 7:39:00 EDT, Tablet, [facility]/pharmacy #[id number], Partial fill upon patient request if [...] Ok to... Start Date: 05/07/23 Status: Ordered Golytely - oral powder for reconstitution 240 mL, By Mouth, Every 15 minutes, Start prep at 5 pm the night before the procedure. Take 1/2 of the prep Take the othe 1/2 6 hours before the procedure, # 1 each, 0 Refills, Maintenance, 01/25/24 13:15:00 EDT, REC Powder, [facility] #[id number], Ok to... Start Date: 01/25/24 Status: Ordered Maalox Plus Liquid 30 mL, [...] 4,000 mL, 0 Refills, Maintenance,02/24/23 14:25:00 EDT, [facility]/pharmacy #[id number], march sub... Start Date: 02/24/23 Status: Ordered one [...] tablet, 3 Refills, Maintenance, 10/29/23 11:21:00 EST, [facility]/pharmacy #[id number], Partial fill upon patient request if the prescription is for a schedule II opioid drug., 160, cm, 10/13/23 14:16:00 EST, Height, 96.3, k... Start Date: 10/29/23 Status: Ordered Problem List Condition Confirmation Course Effective Dates Status Health St at Informant Anxiety Confirmed Active Appendectomy Confirmed 1979 Active Asthma Confirmed Active Depression Confirmed Active Gastric bypass operation Confirmed 2005 Active Menopausal symptom Confirmed Active Stage 2 cystocele Confirmed Active Migraines Confirmed Active Urinary incontinence, mixed Confirmed Active Obese class II Confirmed Active Obesity Confirmed Active Severe obesity (BMI 35.0-39.9) with comorbidity Confirmed Active Vital Signs Most recent to oldest [Reference Range]: 1 2 3 Oxygen Saturation [94-100 %] 95 % (02/01/24 12:00 PM) 96 % (02/01/24 11:45 AM) 96 % (02/01/24 11:40 AM) Pulse Rate [55-90 bpm] 65 bpm (02/01/24 10:46 AM) Blood Pressure [90-138/55-84 mm Hg] 114/63mm Hg (02/01/24 12:00 PM) 103/55mm Hg (02/01/24 11:45 AM) 105/63mm Hg (02/01/24 11:40 AM) Respiratory Rate [16-30 br/min] 13 br/min *L* (02/01/24 12:00 PM) 14 br/min *L* (02/01/24 11:45 AM) 21 br/min (02/01/24 11:40 AM) Temperature [96.8-100.4 DegF] 97.3 DegF (02/01/24 10:46 AM) Liters per Minute 6 L/min (02/01/24 11:25 AM) Mode of Delivery (Oxygen) Room air (02/01/24 12:00 PM) Room air (02/01/24 11:45 AM) Room air (02/01/24 11:30 AM) Blood pressure sites Arm, left (02/01/24 12:00 PM) Arm, left (02/01/24 11:45 AM) Arm, left (02/01/24 11:40 AM) Temperature Route Temporal (02/01/24 10:46 AM) Dry Weight 89.5 kg (02/01/24 10:46 AM) Dry Weight Obtained Via Standing scale (02/01/24 10:46 AM) Social History Social History Type Response Smoking Status Former smoker; Other : pt quit 3 yrs ago; entered on: 11/17/17 Sex Patient Care team information Care Team Personnel Name: Modesta Lockwood MD Position: [facility] Outreach Member Role: PCP Address: Address: [address] [place] [address] [address] Modesta Lockwood MD [address] Name: Iván Randall RN Position: S RN Member Role: Primary Care Nurse Name: Ana Vernon RN Position: [facility] RN Member Role: Primary Care Nurse Name: Mony Charles RN Position: S RN Member Role: Primary Care Nurse Name: Bianca Oneill RN Position: S RN Member Role: Primary Care Nurse Name: Juju Pagan RN Position: S RN Member Role: Primary Care Nurse Care Team Related Persons Name: IFITKHAR MASTERS Address: [place] [address] [place] [address] Name: TAPAN GODINEZ Address: home [address] [place] [address]
--- NOTE | 2024-02-16 13:40 | A.OFFVIS_ITS ---
Intake VS Expanded 02/16/24 13:48 Height 5 ft 4 in Weight 191 lb BMI 32.8 Body Fat % 43.6 Body Fat Mass 83.4 Fat Free Mass 108 Visceral Fat Rating 15 Body Water % 38.7 Body Water Mass 74 Basal Metabolic Rate/Score 1,431 Intake Visit Reasons: TV Pre Op Lap Bridget 02/29/24 Allergies penicillin V Allergy (Unknown, Verified 02/16/24 13:41) hives acarbose Adverse Reaction (Unknown, Verified 02/16/24 13:41) Flatulence topiramate [From Topamax] Adverse Reaction (Unknown, Verified 02/16/24 13:41) Facial Tingling shellfish Allergy (Unknown, Uncoded 02/16/24 13:41) Angioedema Medication List - Last Reconciled 02/16/24 by Ashwin Cheung MD albuterol sulfate 90 mcg/actuation (Ventolin HFA) 2 puffs inhalation Q4H PRN aspirin 325 mg PO DAILY blood sugar diagnostic (FreeStyle Lite Strips) As directed blood-glucose meter (FreeStyle [place] Lite kit) As directed cholecalciferol (vitamin D3) 125 mcg PO DAILY escitalopram oxalate (Lexapro) 20 mg PO DAILY ferrous sulfate 325 mg PO DAILY fluticasone propionate 110 mcg/actuation (Flovent HFA) 2 puffs inhalation BID hydroxyzine HCl 25 mg PO TID lancets (FreeStyle Lancets) As directed loratadine (Claritin) 10 mg PO DAILY lorazepam (Ativan) 0.5 mg PO BEDTIME PRN mecobalamin (vitamin B12) 1,000 mcg sublingual DAILY mirabegron ER (Myrbetriq) 50 mg PO DAILY mometasone 0.1% 1 appl topical DAILY ondansetron 4 mg PO Q12H prazosin 1 mg PO TID propranolol ER 160 mg PO DAILY rosuvastatin 40 mg PO DAILY sennosides (senna) 8.6 mg PO DAILY topiramate 50 mg PO BID valacyclovir (Valtrex) 1,000 mg PO DAILY vitamin A palmitate 10,000 units PO DAILY zolpidem (Ambien) 10 mg PO BEDTIME HPI TV Pre Op Lap Bridget 02/29/24 HPI Details Start time: 1.27pm, End time: 1.57pm ?I spent 25 minutes speaking with the patient on the phone plus an additional 5 minutes reviewing and updating records for a total of 30 minutes HPI Comments History of Present Illness Details Patient was found to have cholelithiasis on abdominal ultrasound and a laparoscopic cholecystectomy is scheduled. [facility] Medical History Intestinal malabsorption Migraines Insomnia Anxiety Depression DJD (degenerative joint disease) Hyperlipidemia Hypertension CAD (coronary artery disease) Obstructive sleep apnea treated with continuous positive airway pressure (CPAP) Hypoglycemia Anxiety and depression Anemia Seronegative rheumatoid arthritis Sleep apnea Asthma Surgical History History of surgery on wrist Hx of appendectomy H/O total hip arthroplasty Hx of cataract extraction H/O gastric bypass Family History Father Hypertension Asthma Depression Diabetes Mother Diabetes Hypertension Social History Alcohol intake: current Alcohol intake frequency: holidays/special occasions only Patient Tobacco Use Status: Former Tobacco user Assessment & Plan Assessment & Plan (1) Cholelithiasis: Code(s): K80.20 - Calculus of gallbladder without cholecystitis without obstruction Qualifiers: Cholelithiasis location: gallbladder Cholecystitis presence: without cholecystitis Biliary obstruction: without biliary obstruction Qualified Code(s): K80.20 - Calculus of gallbladder without cholecystitis without obstruction Plan: 1. The patient was not aware of having a cholelithiasis. We discussed in detail the importance of this finding in relation to the type of bariatric surgery that will be chosen. We also discussed that bariatric surgery may accelerate the onset of symptoms of cholelithiasis and that is why elective cholecystectomy in indicated and recommended. We discussed in detail the potential complications and their management including bleeding, bile leak, pancreatitis and major bile duct injury. 2. Stop aspirin today. Avoid any motrin, ibuprofen, advil, aleve, naproxen. Tylenol is fine to use 3. Continue all your medications until the day before surgery. Do not take any medications the day of surgery. 4. Do your preoperative blood work anytime this week or the next by Wednesday02/25/24 5. Continue same nutritional plan and send me weight measurements weekly Orders: Orders Prothrombin Time INR Today K80.20 - Calculus of gallbladder without cholecystitis without obstruction Comprehensive Met. Panel Today K80.20 - Calculus of gallbladder without cholecystitis without obstruction Type and Screen Today K80.20 - Calculus of gallbladder without cholecystitis without obstruction Partial Thromboplastin Time Today K80.20 - Calculus of gallbladder without cholecystitis without obstruction Complete Blood Count Auto Diff Today K80.20 - Calculus of gallbladder without cholecystitis without obstruction Medications: New ondansetron 4 mg PO Q12H 20 tabs 0RF nausea and vomiting R11.0 - Nausea Telehealth Telehealth Location of provider rendering services: practice address Location of patient: address on file Patient Identification confirmed using: Name, : Yes Telehealth method: voice only Patient verbally consented to treatment: Yes Patient verbally consented to billing insurance company: Yes Patient informed of any privacy concerns related to visit: Yes Minutes spent on Phone/Video with Pt.: 30 Coding Level of Care Code Tele Est Pt Level 4 (00661) Diagnoses Calculus of gallbladder without cholecystitis without obstruction K80.20 Cholelithiasis location: gallbladder Cholecystitis presence: without cholecystitis Biliary obstruction: without biliary obstruction Time Spent (min) 30
[2024-02-16 13:48] VITALS: BMI 32.8
== END 2024-02-16 13:57 | disposition home or self-care (01) ==
LOC: HO.HBS 08:26
PROVIDERS: PCP Internal Medicine; Referring Provider Internal Medicine; Visit Provider Surgery
DX: K80.20 Calculus of gallbladder without cholecystitis without obstruction (principal)
CPT/HCPCS: 99499

== ENCOUNTER → 2024-02-16 08:26 | Outpatient (BNVA) | payer MEDICAID, SELFPAY | PROVIDERS: PCP Internal Medicine; Visit Provider Surgery ==

== ENCOUNTER 2024-02-21 10:12 | Outpatient (REF) | payer MEDICAID, SELFPAY ==
[2024-02-21 10:31] LABS: MANUAL DIFF FLAG NO
[2024-02-21 11:22] LABS: Basophils Percent Auto 0.5 % (0-2); Eosinophils Absolute Auto 0.1 X10*3/uL (0.0-0.4); Eosinophils Percent Auto 2.4 % (0-4); Hematocrit 41.9 % (37.0-47.0); Hemoglobin 13.3 g/dl (12.0-16.0); Imm Gran Abs Auto 0.01 X10*3/uL (0.00-0.03); Imm Gran Pct Auto 0.2 % (0.0-0.4); Lymphocytes Absolute Auto 1.6 X10*3/uL (1.2-4.9); Lymphocytes Percent Auto 38.5 % (20-40); Mean Corpuscular HGB Conc 31.7 g/dl (31.0-35.0); Mean Corpuscular Hemoglobin 25.6 pg (27.0-33.0); Mean Corpuscular Volume 80.7 fL (80.0-98.0); Mean Platelet Volume 10.2 fL (9.4-12.3); Monocytes Absolute Auto 0.6 X10*3/uL (0.1-1.2); Monocytes Percent Auto 13.6 % (2-11); Neutrophils Absolute Auto 1.9 x10*3/uL (2.0-8.3); Neutrophils Percent Auto 44.8 % (45-73); Platelet Count 229 X10*3/uL (160-400); Red Blood Count 5.19 X10*6/uL (4.20-5.50); Red Cell Distribution Width 16.7 % (11.0-16.0); White Blood Count 4.1 X10*3/uL (4.8-10.8)
[2024-02-21 11:32] LABS: INTERNATIONAL NORM RATIO 1.1 (0.9-1.1); Prothrombin Time 13.1 SEC (11.1-13.3)
[2024-02-21 11:34] LABS: Partial Thromboplastin Time 31.3 SEC (26.0-36.8)
[2024-02-21 11:57] LABS: Alanine Aminotransferase 20 U/L (0-31); Alkaline Phosphatase 72 U/L (39-117); Anion Gap 12 (12-20); Aspartate Amino Transferase 27 U/L (5-31); Bilirubin Total 0.5 mg/dL (0.0-1.0); Blood Urea Nitrogen 14 mg/dL (9-16); Calcium 9.4 mg/dL (8.4-10.2); Carbon Dioxide 23 mmol/L (22-29); Chloride 110 mmol/L (96-108); Estimated Glomerular Filt Rate > 60; Glucose Random 86 mg/dL (60-115); Potassium 3.9 mmol/L (3.3-5.1); Sodium 141 mmol/L (135-145); Total Protein 7.4 g/dL (6.5-8.0)
== END 2024-02-21 10:13 | disposition home or self-care (01) ==
LOC: HO.LAB 10:12
PROVIDERS: PCP Surgery; Visit Provider Surgery
DX: K80.20 Calculus of gallbladder without cholecystitis without obstruction (principal)
CPT/HCPCS: 36415; 80053; 85025; 85610; 85730

== ENCOUNTER 2024-03-01 06:18 | Day surgery (SDC) | payer MEDICAID, SELFPAY ==
[2024-02-24 14:33] VITALS: BMI 32.8
[2024-03-01] VITALS (17 sets, daily range): BP systolic 97–124; BP diastolic 53–69; PULSE 62–77; RESP 12–20; TEMP 35.8–36.4; O2SAT 88–98; BMI 32.4
[2024-03-01] MEDS: Lactated Ringers 1,000 ML 80 ML IVCONT (06:47)
--- NOTE | 2024-03-01 07:12 | P.CONAN_ITS ---
HPI - Anesthesia Eval Consult details Narrative: 63 yo female patient for Laparoscopic Cholecystectomy Recently sick- about a week ago. Sniffles, tiredness, malaise, fever(one night- resolved without treatment). Used inhaler. Symptoms have since resolved. PMFSH Active Problems Active Problems: All Active Problems Cholelithiasis (Acute) Constipation (Acute) H. pylori infection (Acute) Anxiety disorder, unspecified (Acute) Vitamin B12 deficiency (Acute) Vitamin A deficiency (Acute) Vitamin D deficiency (Acute) Anxiety (Acute) Depression (Acute) BMI 36.0-36.9,adult (Acute) Obesity (Acute) Intestinal malabsorption (Acute) Migraines (Acute) Insomnia (Acute) DJD (degenerative joint disease) (Acute) Hyperlipidemia (Acute) Hypertension (Acute) CAD (coronary artery disease) (Acute)- denies recent chest pain Obstructive sleep apnea -has not been using her CPAP recently Past Medical History Medical History Intestinal malabsorption Migraines Insomnia DJD (degenerative joint disease) Hyperlipidemia Hypertension CAD (coronary artery disease) Obstructive sleep apnea treated with continuous positive airway pressure (CPAP) Hypoglycemia Anxiety and depression Anemia Seronegative rheumatoid arthritis Asthma Family History Family History Father Hypertension Asthma Depression Diabetes Mother Diabetes Hypertension Family history of problems with anesthesia: No Surgical History Surgical History History of esophagogastroduodenoscopy (EGD) History of surgery on wrist Hx of appendectomy H/O total hip arthroplasty Hx of cataract extraction H/O gastric bypass History of Problems with Anesthesia: No Social History Social History Alcohol intake: current Alcohol intake frequency: holidays/special occasions only Patient Tobacco Use Status: Former Tobacco user Use of substances other than those prescribed or required for medical reasons: No Are you DNR?: No Advance Directives: No Advance Directives Information Provided: Yes Meds Allergies Allergy/AdvReac Type Severity Reaction Status Date / Time penicillin V Allergy Mild hives Verified 03/01/24 06:30 acarbose AdvReac Mild Flatulence Verified 03/01/24 06:30 topiramate [From Topamax] AdvReac Mild Facial Verified 03/01/24 06:30 Tingling shellfish Allergy Severe Angioedema Uncoded 03/01/24 06:30 Active Medications: Current Medications Levofloxacin (Levaquin) 500 mg in 100 mls @ 100 mls/hr IV PREOP ONE Stop: 03/01/24 07:19 Lactated Ringer's (Lr) 1,000 mls @ 100 mls/hr IVCONT .Q10H LIZETTE Lactated Ringer's (Lr) 1,000 mls @ 80 mls/hr IVCONT .[id number] LIZETTE Last Admin: 03/01/24 06:47 Dose: 80 mls/hr Home Medications ?Medication ?Instructions ?Recorded ?Confirmed ?Last Taken ?Type albuterol sulfate 90 mcg/actuation 2 puff inhalation Q4H PRN sob 06/04/23 02/24/24 12/29/23 History aerosol inhaler (Ventolin HFA) escitalopram oxalate 20 mg tablet 20 mg PO DAILY 06/04/23 03/01/24 02/29/24 History (Lexapro) ferrous sulfate 325 mg (65 mg 325 mg PO DAILY 06/04/23 02/24/24 Unknown History iron) tablet fluticasone propionate 110 2 puff inhalation BID 06/04/23 03/01/24 03/01/24 History mcg/actuation HFA aerosol inhaler (Flovent HFA) hydroxyzine HCl 25 mg tablet 25 mg PO TID 06/04/23 02/24/24 Unknown History lorazepam 0.5 mg tablet (Ativan) 0.5 mg PO BEDTIME PRN Anxiety 06/04/23 02/24/24 Unknown History mirabegron 50 mg tablet,extended 50 mg PO DAILY 06/04/23 03/01/24 02/29/24 History release 24 hr (Myrbetriq) prazosin 1 mg capsule 1 mg PO TID 06/04/23 03/01/24 02/29/24 History propranolol 160 mg capsule,24 160 mg PO DAILY 06/04/23 03/01/24 03/01/24 History hr,extended release topiramate 50 mg tablet 50 mg PO BID 06/04/23 03/01/24 02/29/24 History zolpidem 10 mg tablet (Ambien) 10 mg PO BEDTIME 06/04/23 02/24/24 Unknown History blood sugar diagnostic (FreeStyle #10 ea 10/26/23 02/16/24 Unknown History Lite Strips) blood-glucose meter (FreeStyle #1 ea 10/26/23 02/16/24 Unknown History [place] Lite kit) lancets 28 gauge (FreeStyle #100 ea 10/26/23 02/16/24 Unknown History Lancets) loratadine 10 mg tablet (Claritin) 10 mg PO DAILY 10/26/23 03/01/24 02/29/24 History mometasone 0.1 % topical cream 1 appl topical DAILY 10/26/23 02/24/24 Unknown History aspirin 325 mg tablet 325 mg PO DAILY 02/16/24 03/01/24 02/16/24 History rosuvastatin 40 mg tablet 40 mg PO DAILY 02/16/24 03/01/24 02/29/24 History Exam Height,Weight and Vital Signs: Height 5 ft 4 in Weight 85.502 kg Last Vital Signs Temp 96.5 F L 03/01/24 06:46 Pulse 67 03/01/24 06:46 Resp 16 03/01/24 06:46 BP 103/64 03/01/24 06:46 Pulse Ox 95 03/01/24 06:46 O2 Del Method Room Air 03/01/24 06:46 Pertinent Lab Results Pertinent Lab Results: Laboratory Tests 02/21/24 10:30 Blood Type O Positive Antibody Screen NEGATIVE Airway Mallampati Class: III (Small mouth) TM Dist: >3cm Neck ROM: Full Loose/Missing/Broken Teeth: No (Denies broken, loose, missing teeth) Heart: RRR Lungs: CTAB Assessment and Plan Assessment Anesthesia Assessment: Anesthesia Plan Discussed and Chart Reviewed Final Anesthetic Review Family History of Problems with Anesthesia: No History of Problems with Anesthesia: No NPO: Yes ASA Class: III Final Preanesthetic Review: No Changes in Pt Med Stat, Meds/Allgs Chart Reviewed, Consent Obtained/Reviewed and Anes Risks/Benef Reviewed Patient Risk: Intermediate Procedure Risk: Intermediate Assessment/Block/Sedation in SS: Assess/Block/Sedation-SS Anesthetic Plan Anesthetic Plan: GA Disposition: Standard PACU
--- NOTE | 2024-03-01 07:36 | MHC.SHP ---
Pre-Procedural Eval Section A - 24 Hr Update-Section A only Date of Service: 03/01/24 The patient is an INPATIENT: No The patient has been examined within 24 hours of the surgical procedure. The History & Physical has been completed within 30 days and I have reviewed it.: Yes Section B - Complete if H&P > 30 days Chief Complaint: Calculus of gallbladder without cholecystitis Relevant Family History (Specify if Yes): No Relevant Social History: None Present Medications: None Medical History: No relevant PMH History of Previous Operations: Relevant previous surgery/procedure and date(s) (laparoscopic gastric bypass) Allergies: Allergies Allergy/AdvReac Type Severity Reaction Status Date / Time penicillin V Allergy Mild hives Verified 03/01/24 06:30 acarbose AdvReac Mild Flatulence Verified 03/01/24 06:30 topiramate [From Topamax] AdvReac Mild Facial Verified 03/01/24 06:30 Tingling shellfish Allergy Severe Angioedema Uncoded 03/01/24 06:30 Review of Systems Sugical H&P ROS: Negative: Constitution, Cardiovascular, Respiratory, Neurological, Psychiatric, Hem-Onc, Allergic/Immunologic, Gastrointestinal, Genitourinary, Musculoskeletal, Integumentary, Endocrine and Eyes/Ears/Nose/Throat Exam Surgical H&P Exam: Normal: HEENT, Normal: Heart, Normal: Lungs, Normal: Extremities, Normal: Abdomen, Normal: Skin and Normal: Neurological Plan Diagnosis/Plan: Unchanged (Plan for laparoscopic cholecystectomy. Risks and complicatrions were discussed with the patient and she is in agreement.) I have reviewed the history and physical and performed a pertinent physical examination on my patient. No changes have occurred unless specified. Time Spent With Patient Time: Total time managing care of this patient today ____ minutes.
--- NOTE | 2024-03-01 07:55 | PM.OP ---
Brief Operative Note Date of Service: 03/01/24 Pre-op diagnosis: Symptomatic cholelithiasis Post-op diagnosis: same Procedure: PROCEDURE DATE: 03/01/2024 PREOPERATIVE DIAGNOSIS: Symptomatic cholelithiasis POSTOPERATIVE DIAGNOSIS: Same as above. PROCEDURE: Upper endoscopy and laparoscopic cholecystectomy Surgeon: Manish Cheung M.D.. Ph.D. Service Director:Afshin Brooks PA-C Anesthesia: General endotracheal anesthesia Estimated blood loss: Minimal FINDINGS AND PROCEDURE: OPERATIVE INDICATIONS: The patient is a 63 year old female known to [place] who underwent a laparoscopic chlecystectomy. The patient was doing very well but has recently been complaining of persistent mid epigastric and right upper quadrant abdominal pain which is mostly postprandial. Ultrasound of the abdomen and pelvis was consistent with cholelithiasis. Based on this information we recommended laparoscopic cholecystectomy, upper endoscopy to evaluate the patient's symptoms. Risks and complications of the surgery were discussed with the patient in advance particularly the possibility of conversion to an open surgery, bleeding, infection, obstruction, deep vein thrombosis or pulmonary embolism, bile leak or major bile duct injury that may require surgical intervention. The patient understood the risks and was in agreement with the plan. PROCEDURE: After informed consent was obtained by the patient, the patient was transferred to the Operating Room and was placed in the supine position. The patient was given preoperative antibiotics and after successful induction of general anesthesia a Wong catheter and pneumatic compression devices were placed. The patient was then prepped and draped in the usual sterile manner and abdominal access was established with the Dharmesh technique. The abdomen was insufflated with C02 to a pressure of 15 mmHg. A 5 mm Versi-step port was placed, slightly to the right and superior from the umbilicus. The 5 mm camera was introduced. We inspected the area where the port had been placed and there was no injury. The patient was then placed initially in a steep reverse Trendelenburg position and three additional ports were placed, specifically a 12 mm Versi-step port just to the right of the midline below the xiphoid process and two 5 mm Versi-step ports at the right upper quadrant and right flank. At that point the patient was placed in a steep reverse Trendelenburg position tilted to the left side. The gallbladder was retracted cephalad and laterally. There were adhesions between the omentum and the gallbladder wall as well as extensive fat infiltration that were taken down. This was extensive and required over 45 minutes of dissection. The peritoneal attachments of the gallbladder at the triangle of Calot posteriorly and anteriorly were taken down. The cystic duct and artery were both seen. They were completely dissected free, skeletonized all the way to the infundibulum of the gallbladder. In a similar fashion we also cleaned the liver bed just behind the cystic artery to make sure there was no additional structures in this area. Once we confirmed that both structures were entering into the gallbladder and there were no other structures in the area, they were both clipped. The cystic duct with two clips proximally and the cystic artery with one clip proximally, both structures with one clip distally and were cut in-between. We then using the electrocautery we slowly took down the gallbladder from the liver bed. Small areas of bleeding from the liver parenchyma were controlled with the cautery. After the gallbladder was completely detached from the liver bed, it was placed in an EndoCatch bag and was removed without difficulty from the xiphoid port. We then inspected the clips at the cystic duct and artery and were both in place. There was no active bleeding from the liver bed. At that point the patient was placed in supine position, we deflated the abdomen and we removed all ports under direct vision and no bleeding was noted from any of the port sites. The fascia of the 12 mm port was closed using a #1 Polysorb suture. 30cc Ropivacaine and 1% Lidocaine plain were used to infiltrate the fascial closure as well as all skin incisions. A total of 7ml Zynrelef was applied in the Dharmesh wound. The wounds were closed with 4-0 Monocryl subcuticular sutures antibiotic-coated. Steri-strips and OpSites were used to cover all incisions. The patient extubated and was transferred in stable condition to the Recovery Room for further care. I was present and performed all steps of the procedure. Mr. Brooks was the airplane first officer. There were no residents to assist with this case. Manish Cheung M.D., Ph.D., F.A.C.S. Surgeon: Ashwin Cheung MD Anesthesia: GETA, local and other (TAP block and Zynrelef) Was an Service Director used for this Procedure?: No Service Director: Afshin Brooks Estimated blood loss (mL): 10 IV fluids (mL): 1,500 Urine output (mL): 0 (No Wong to record output) Pathology: other (Gallbladder) Condition: stable Disposition: PACU
[2024-03-01] MEDS: fentaNYL citrate/PF 100 MCG/2 ML VIAL 25 MCG IVPUSH (10:38)
[2024-03-01] MEDS: oxyCODONE HCl Immed Release 5 MG TABLET PO (11:29)
== END 2024-03-01 14:12 | disposition home or self-care (01) ==
PROVIDERS: Visit Provider Surgery
PROC: 0FT44ZZ Resection of Gallbladder, Percutaneous Endoscopic Approach (ICD-10-PCS; CPT 47562; principal; 2024-03-01 07:30)
DX: K80.10 Calculus of gallbladder with chronic cholecystitis without obstruction (principal); I10 Essential (primary) hypertension; J45.909 Unspecified asthma, uncomplicated; Z88.0 Allergy status to penicillin
CPT/HCPCS: 47562; 36415; 80053; 85025; 85610; 85730; 86850; 86900; 86901; 88304; C9088; J0131; J1100; J1596; J1956; J2250; J2405; J2704; J2795; J3010

== ENCOUNTER → 2024-03-01 06:18 | Outpatient (BNV) | payer MEDICAID, SELFPAY | PROVIDERS: Visit Provider Surgery | DX: K80.20 Calculus of gallbladder without cholecystitis without obstruction (principal); K66.0 Peritoneal adhesions (postprocedural) (postinfection); R10.13 Epigastric pain | CPT/HCPCS: 43239; 47562 ==

== ENCOUNTER 2024-03-06 08:26 | Outpatient (AMB) | payer MEDICAID, SELFPAY ==
--- NOTE | 2024-03-06 11:02 | A.OFFVIS_ITS ---
VS Expanded 03/06/24 11:09 Height 5 ft 4 in Weight 185 lb 4 oz BMI 31.8 Body Fat % 42 Body Fat Mass 77.8 Fat Free Mass 107.6 Visceral Fat Rating 15 Body Water % 39.8 Body Water Mass 73.7 Basal Metabolic Rate/Score 1,431 Intake Visit Reasons: TV Follow Up SWL Allergies penicillin V Allergy (Mild, Verified 03/01/24 06:30) hives acarbose Adverse Reaction (Mild, Verified 03/01/24 06:30) Flatulence topiramate [From Topamax] Adverse Reaction (Mild, Verified 03/01/24 06:30) Facial Tingling shellfish Allergy (Severe, Uncoded 03/01/24 06:30) Angioedema HPI HPI TV Follow Up SWL: Details: Start time: 10.57am, End time: 11.17am ?I spent 15 minutes speaking with the patient on the phone plus an additional 5 minutes reviewing and updating records for a total of 20 minutes HPI Comments Details: Overall weight loss: 24,2lbs, or 11.55% TBWL s/p lap jeanna. Recovering well. Tolerating diet. Mild incisional pain Is doing 2 Celebrate Rebuild protein shakes (1 scoop each in 8oz almond milk), 2 Celebrate protein bars and one meal (6 forks of protein and 6 forks of salador vegetables) exercise: bike for 400 calories per day, 5 days per week [facility] Medical History Intestinal malabsorption Migraines Insomnia DJD (degenerative joint disease) Hyperlipidemia Hypertension CAD (coronary artery disease) Obstructive sleep apnea treated with continuous positive airway pressure (CPAP) Hypoglycemia Anxiety and depression Anemia Seronegative rheumatoid arthritis Asthma Surgical History History of esophagogastroduodenoscopy (EGD) History of surgery on wrist Hx of appendectomy H/O total hip arthroplasty Hx of cataract extraction H/O gastric bypass Family History Father Hypertension Asthma Depression Diabetes Mother Diabetes Hypertension Social History Alcohol intake: current Alcohol intake frequency: holidays/special occasions only Patient Tobacco Use Status: Former Tobacco user Telehealth Telehealth Telehealth Platform: Telephone Location of provider rendering services: practice address Location of patient: address on file Patient Identification confirmed using: Name, : Yes Telehealth method: voice only Patient verbally consented to treatment: Yes Patient verbally consented to billing insurance company: Yes Patient informed of any privacy concerns related to visit: Yes Minutes spent on Phone/Video with Pt.: 20 Assessment & Plan Assessment & Plan (1) Obesity: Code(s): E66.9 - Obesity, unspecified Category: Medical Qualifiers: Obesity type: due to excess calories Obesity classification: adult class 2 (BMI 35 - 39.9) Serious obesity comorbidity presence: with serious comorbidity Body mass index: BMI 36.0-36.9 Qualified Code(s): E66.01 - Morbid (severe) obesity due to excess calories; Z68.36 - Body mass index [BMI] 36.0- 36.9, adult Plan: 1. Plan for lap sleeve gastrectomy including upper GI endoscopy. All tests has been completed and reviewed and the patient is cleared for the surgery. ?If diaphragmatic or ventral hernias are present at time of surgery, these will be repaired laparoscopically as well. Risks and complications were discussed in detail including possible conversion to an open procedure, anastomotic leak, bleeding requiring transfusion, small bowel obstruction, , DVT and pulmonary embolism, cardiac, or pulmonary complications, as assistant terminal manager complications such as anastomotic ulcer, insufficient weight loss and vitamin deficiencies. I emphasized the importance of close follow-up, adherence to instructions and good communication. So far she has proven to be an excellent communicator and very compliant with all our directions accomplishing a great weight loss. I believe that she is an excellent candidate and she is ready. 2. The patient participated in a structured preoperative lifestyle intervention program supervised by a physician the 4 months preceding the surgical procedure. The lifestyle intervention included a structured nutritional plan with a specific daily protein intake goal, an exercise plan with a 2000 calorie burn weekly goal, weekly behavior modification guidance and completion of eight 1- hour online nutritional classes and passing successfully the corresponding quizzes. Adherence to preoperative care plan was demonstrated by completing an extensive preoperative work-up. Program participation was demonstrated by completing 10 visits with our medical team and by sharing weekly weight measurements weekly for 4 consecutive months via an approved body composition scale. Compliance to the lifestyle intervention was demonstrated by achieving a 24.2lbs weight-loss or 11.55% total body weight loss (TBWL). No medications were used to achieve this weight loss. In our published experience an over 7% preoperative TBWL, achieved by meeting the diet and exercise goals of our program improves surgical outcomes, reduces the potential for surgical complications, and predicts a statistically significant higher weight loss up to 6 years postoperatively. 3. Continue same nutritional plan of 2 Celebrate Rebuild protein shakes (1 scoop each in 8oz almond milk), 2 Celebrate protein bars and one meal (6 forks of protein and 6 forks of salador vegetables) 4. Exercise: start bike for 100 calories per work-out, twice per day, daily and slowly increase to 300 calories per day, daily 5. Continue to send weight measurements weekly on Fridays
[2024-03-06 11:09] VITALS: BMI 31.8
== END 2024-03-06 11:17 | disposition home or self-care (01) ==
LOC: HO.HBS 08:26
PROVIDERS: Visit Provider Surgery
DX: E66.01 Morbid (severe) obesity due to excess calories (principal); Z68.36 Body mass index [BMI] 36.0-36.9, adult
CPT/HCPCS: 99024

== ENCOUNTER → 2024-03-06 08:26 | Outpatient (BNVA) | payer MEDICAID, SELFPAY | PROVIDERS: Visit Provider Surgery ==

== ENCOUNTER 2024-03-08 12:54 | Outpatient (AMB) | payer MEDICAID, SELFPAY ==
--- NOTE | 2024-03-08 12:56 | A.OFFVIS_ITS ---
VS Expanded 03/08/24 13:03 BP 117/62 Blood Pressure Location Rt brachial Blood Pressure Position Sitting Pulse 67 Pulse Source Pulse Oximeter Temp 95.9 F L Temperature Source Tympanic Pulse Oximetry 95 Oxygen Delivery Method Room Air Intake Visit Reasons: (OV) s/p Lap Bridget 02/29/24 Allergies penicillin V Allergy (Mild, Verified 03/01/24 06:30) hives acarbose Adverse Reaction (Mild, Verified 03/01/24 06:30) Flatulence topiramate [From Topamax] Adverse Reaction (Mild, Verified 03/01/24 06:30) Facial Tingling shellfish Allergy (Severe, Uncoded 03/01/24 06:30) Angioedema HPI Comments Details: Patient is a 63-year-old female who returns to the office today in follow-up. She is status post laparoscopic cholecystectomy on 02/29/2024. She had an appointment with Dr. Cheung 2 days ago. She states that over the weekend she was experiencing a stabbing pain and discomfort of her abdomen. She states that since her appointment with him 2 days ago, the pain has now turned into an ache centered around the epigastrium. She additionally states that she had nausea and vomiting x1 after her shake today although she drank it more quickly than recommended. She additionally states she is having difficulty taking a deep breath due to the discomfort in the epigastrium and right upper quadrant. Denies difficulty with bowel or bladder habits. She moved her bowels today. [facility] Medical History (Updated 03/08/24 @ 13:44 by DIMPLE Cummins) Intestinal malabsorption Migraines Insomnia DJD (degenerative joint disease) Hyperlipidemia Hypertension CAD (coronary artery disease) Obstructive sleep apnea treated with continuous positive airway pressure (CPAP) Hypoglycemia Anxiety and depression Anemia Seronegative rheumatoid arthritis Asthma Surgical History (Updated 03/08/24 @ 13:44 by DIMPLE Cummins) Hx laparoscopic cholecystectomy History of esophagogastroduodenoscopy (EGD) History of surgery on wrist Hx of appendectomy H/O total hip arthroplasty Hx of cataract extraction H/O gastric bypass Family History Father Hypertension Asthma Depression Diabetes Mother Diabetes Hypertension Social History Alcohol intake: current Alcohol intake frequency: holidays/special occasions only Patient Tobacco Use Status: Former Tobacco user Physical Exam Vital Signs: Last Vital Signs Temp 95.9 F L 03/08/24 13:03 Pulse 67 03/08/24 13:03 BP 117/62 03/08/24 13:03 Pulse Ox 95 03/08/24 13:03 Oxygen Delivery Method Room Air 03/08/24 13:03 GI Other: Hyperactive bowel sounds. Midline incisional tenderness. Abdomen soft, No guarding, no rebound tenderness Assessment & Plan Assessment & Plan (1) Hx laparoscopic cholecystectomy: Code(s): Z90.49 - Acquired absence of other specified parts of digestive tract Category: Surgical Plan: Presenting with epigastric discomfort, reproducible to palpation of the midline incision. We will check CBC, LFTs, amylase, lipase. Additionally, given patient's difficulty with taking a deep breath, she was given an incentive spirometer with instructions on how to use it. She was able to demonstrate good technique in front of me. Encouraged to reach the 1500 rosendo. Additionally, encouraged to continue Tylenol. Case discussed with Dr. Cheung. Orders: Orders Lipase Today R10.13 - Epigastric pain, Z90.49 - Acquired absence of other specified parts of digestive tract Complete Blood Count Auto Diff Today R10.13 - Epigastric pain, Z90.49 - Acquired absence of other specified parts of digestive tract Liver Panel Today R10.13 - Epigastric pain, Z90.49 - Acquired absence of other specified parts of digestive tract Amylase Today R10.13 - Epigastric pain, Z90.49 - Acquired absence of other specified parts of digestive tract
[2024-03-08 13:03] VITALS: BP 117/62; PULSE 67; TEMP 35.5; O2SAT 95
== END 2024-03-08 13:46 | disposition home or self-care (01) ==
PROVIDERS: PCP Internal Medicine; Visit Provider Physician Assistant Surgical
DX: Z90.49 Acquired absence of other specified parts of digestive tract (principal)
CPT/HCPCS: 99024

== ENCOUNTER 2024-03-08 12:54 | Outpatient (REF) | payer MEDICAID, SELFPAY ==
[2024-03-08 14:01] LABS: MANUAL DIFF FLAG NO
[2024-03-08 15:17] LABS: Basophils Percent Auto 0.5 % (0-2); Eosinophils Absolute Auto 0.3 X10*3/uL (0.0-0.4); Hematocrit 38.4 % (37.0-47.0); Hemoglobin 12.1 g/dl (12.0-16.0); Imm Gran Abs Auto 0.02 X10*3/uL (0.00-0.03); Imm Gran Pct Auto 0.3 % (0.0-0.4); Lymphocytes Percent Auto 29.5 % (20-40); Mean Corpuscular HGB Conc 31.5 g/dl (31.0-35.0); Mean Corpuscular Hemoglobin 26.2 pg (27.0-33.0); Mean Corpuscular Volume 83.3 fL (80.0-98.0); Mean Platelet Volume 10.4 fL (9.4-12.3); Monocytes Absolute Auto 0.6 X10*3/uL (0.1-1.2); Monocytes Percent Auto 9.5 % (2-11); Neutrophils Absolute Auto 3.7 x10*3/uL (2.0-8.3); Neutrophils Percent Auto 55.2 % (45-73); Platelet Count 239 X10*3/uL (160-400); Red Blood Count 4.61 X10*6/uL (4.20-5.50); Red Cell Distribution Width 17.2 % (11.0-16.0); White Blood Count 6.7 X10*3/uL (4.8-10.8)
[2024-03-08 17:08] LABS: Alanine Aminotransferase 17 U/L (0-31); Albumin Level 4.2 g/dL (3.5-5.0); Alkaline Phosphatase 69 U/L (39-117); Amylase 58 U/L (28-100); Aspartate Amino Transferase 18 U/L (5-31); Bilirubin Direct 0.2 mg/dL (0.0-0.5); Bilirubin Total 0.5 mg/dL (0.0-1.0); Lipase 10 U/L (8-78); Total Protein 7.3 g/dL (6.5-8.0)
== END 2024-03-08 12:55 | disposition home or self-care (01) ==
LOC: HO.LAB 12:54
PROVIDERS: PCP Internal Medicine; Visit Provider Physician Assistant Surgical
DX: R10.13 Epigastric pain (principal); Z90.49 Acquired absence of other specified parts of digestive tract
CPT/HCPCS: 36415; 80076; 82150; 83690; 85025; 99212

== ENCOUNTER → 2024-04-24 10:51 | Outpatient (BNVA) | payer MEDICAID, SELFPAY | PROVIDERS: PCP Internal Medicine; Visit Provider Surgery ==

== ENCOUNTER 2024-05-01 07:50 | Outpatient (AMB) | payer MEDICAID, SELFPAY ==
[2024-05-01 12:38] VITALS: BMI 30.8
--- NOTE | 2024-05-01 12:38 | MHC.OFFVISWM ---
VS Expanded 05/01/24 12:38 Height 5 ft 4 in Weight 179 lb 8 oz BMI 30.8 Body Fat % 40.6 Body Fat Mass 72.9 Fat Free Mass 106.8 Visceral Fat Rating 13 Body Water % 40.7 Body Water Mass 73.1 Basal Metabolic Rate/Score 1,428 Intake Visit Reasons: TV Pre Op Revision GBP to LSG 05/04/24 Allergies penicillin V Allergy (Mild, Verified 05/01/24 12:42) hives acarbose Adverse Reaction (Mild, Verified 05/01/24 12:42) Flatulence shellfish Allergy (Severe, Uncoded 05/01/24 12:42) Angioedema Medication List - Last Reconciled 05/01/24 by Ashwin Cheung MD albuterol sulfate 90 mcg/actuation (Ventolin HFA) 2 puffs inhalation Q4H PRN aspirin 81 mg PO DAILY blood sugar diagnostic (FreeStyle Lite Strips) As directed blood-glucose meter (FreeStyle Seanor Lite kit) As directed cholecalciferol (vitamin D3) 125 mcg PO DAILY escitalopram oxalate (Lexapro) 20 mg PO DAILY ezetimibe 10 mg PO DAILY fexofenadine (Zari Allergy) 180 mg PO BID fluticasone propionate 110 mcg/actuation (Flovent HFA) 2 puffs inhalation BID lancets (FreeStyle Lancets) As directed lorazepam (Ativan) 0.5 mg PO DAILY PRN mecobalamin (vitamin B12) 1,000 mcg sublingual DAILY mirabegron ER (Myrbetriq) 50 mg PO DAILY omalizumab (Xolair) 300 mg subcut Q4W ondansetron 4 mg PO Q12H PRN ondansetron 4 mg PO Q6H PRN pantoprazole 40 mg PO DAILY polyethylene glycol 3350 17 grams PO DAILY prazosin 1 mg PO BEDTIME propranolol ER 160 mg PO DAILY quetiapine 50 mg PO BEDTIME rosuvastatin 40 mg PO DAILY sennosides (senna) 8.6 mg PO DAILY sucralfate 10 mL PO BID topiramate 50 mg PO DAILY zolpidem (Ambien) 10 mg PO BEDTIME HPI HPI TV Pre Op Revision GBP to LSG 05/04/24: Details: Start time: 7.30am, End time: 8am ?I spent 25 minutes speaking with the patient on the phone plus an additional 5 minutes reviewing and updating records for a total of 30 minutes HPI Comments Details: Overall weight loss: 29.8lbs, or 14.2% TBWL s/p lap jeanna. Recovering well. Tolerating diet. Mild incisional pain Is doing 2 Celebrate Rebuild protein shakes (1 scoop each in 8oz almond milk), 2 Celebrate protein bars and one meal (6 forks of protein and 6 forks of salador vegetables) exercise: bike for 400 calories per day, 5 days per week [facility] Medical History (Updated 04/26/24 @ 10:56 by Preethi Aguilar RN) Back pain Intestinal malabsorption Migraines Insomnia DJD (degenerative joint disease) Hyperlipidemia Hypertension CAD (coronary artery disease) Obstructive sleep apnea treated with continuous positive airway pressure (CPAP) Hypoglycemia Anxiety and depression Anemia Seronegative rheumatoid arthritis Asthma Surgical History (Updated 04/26/24 @ 10:59 by Preethi Aguilar RN) H/O colonoscopy History of surgery on arm History of lumbar fusion Hx laparoscopic cholecystectomy History of esophagogastroduodenoscopy (EGD) Hx of appendectomy H/O total hip arthroplasty Hx of cataract extraction H/O gastric bypass Family History Father Hypertension Asthma Depression Diabetes Mother Diabetes Hypertension Social History Are you a primary lead care manager to a significant other at home: Yes Do you presently have visiting nurse or other home services: No Alcohol intake: current Alcohol intake frequency: does not drink Patient Tobacco Use Status: Former Tobacco user Use of substances other than those prescribed or required for medical reasons: No Have you been hit, kicked, punched, or otherwise hurt by someone within the past year? If so, by whom?: No Are you DNR?: No Advance Directives: No Advance Directives Information Provided: No Advance Directives on File: No Recently lost weight without trying: No Eating poorly because of decreased appetite: No Nutrition Risks: No Nutritional Risk Patient : No : No Poor oral hygiene: Yes (upper crown) Telehealth Telehealth Telehealth Platform: Telephone Location of provider rendering services: practice address Location of patient: address on file Patient Identification confirmed using: Name, : Yes Telehealth method: voice only Patient verbally consented to treatment: Yes Patient verbally consented to billing insurance company: Yes Patient informed of any privacy concerns related to visit: Yes Minutes spent on Phone/Video with Pt.: 30 Assessment & Plan Assessment & Plan (1) Obesity: Code(s): E66.9 - Obesity, unspecified Category: Medical Qualifiers: Obesity type: due to excess calories Obesity classification: adult class 2 (BMI 35 - 39.9) Serious obesity comorbidity presence: with serious comorbidity Body mass index: BMI 36.0-36.9 Qualified Code(s): E66.01 - Morbid (severe) obesity due to excess calories; Z68.36 - Body mass index [BMI] 36.0-36.9, adult Plan: 1. Plan for lap sleeve gastrectomy including upper GI endoscopy. All tests has been completed and reviewed and the patient is cleared for the surgery.? If diaphragmatic or ventral hernias are present at time of surgery, these will be repaired laparoscopically as well. Risks and complications were discussed in detail including possible conversion to an open procedure, anastomotic leak, bleeding requiring transfusion, small bowel obstruction, , DVT and pulmonary embolism, cardiac, or pulmonary complications, as principal software engineer complications such as anastomotic ulcer, insufficient weight loss and vitamin deficiencies. I emphasized the importance of close follow-up, adherence to instructions and good communication. So far she has proven to be an excellent communicator and very compliant with all our directions accomplishing a great weight loss. I believe that she is an excellent candidate and she is ready. 2. Preop prescriptions were provided and explained the purpose of each one. Need to be purchased preop. Start Pantoprazole now as you get it from the pharmacy, 1 pill per day. Sucralfate and Zofran are for after surgery as needed. 3. Bowel prep: please do 7 packets ?of Miralax mixing each one with a an 8oz glass of water, crystal light, gatorade zero, or propel ?on 05/02/24 and the same amount on 05/03/24. The Miralax you begin with one packet at a time in 8oz water or crystal light, gatorade zero, or propel ?as early in the day as you can and you do them back to back until you finish them. Continue the protein shakes during ?the bowel prep. 4. Needs to purchase 1oz medicine cups . 5. Needs to purchase Children's liquid Tylenol for postop pain control. 6.. Avoid aspirin, motrin, Advil, Aleve, Ibuprofen, Naproxyn. Tylenol is OK. 7. She needs to purchase the Celebrate 4:1 protein shakes from the hospital's gift shop. 8. Importance of adherence to postop folllow-up and recommendations was underscored and she understands that. 9. Stop food and bars as of tomorrow 04/30/24 and continue with 4? Celebrate Rebuild protein shakes (ONE scoop EACH in 8oz almond milk) at 9am-11am, 12pm-2pm, 3pm-5pm, 6pm-8pm and one more Celebrate Rebuild protein shake with TWO scoops in 8oz of almond milk at 9pm-11pm 10. No soups, broths or V8 11. The patient's medical history has been reviewed and they are considered low risk for post op DVT and therefore DVT prophylaxis is not considered necessary. Travel after surgery was reviewed. The patient has not disclosed any travel plans during the first 30 days after surgery and they have been advised that within the first 30 days after surgery any bus, plane, train or car travel over 2 hours in duration is contraindicated due to the possibility of developing blood clots from immobility. Any travel, needs to include periods of ambulation of 10 minutes in duration every 2 hours.? Patient was instructed to discuss any plans for travel during this period with their bariatric surgeon. 12.Please take at the day of surgery the following medications: NONE 13. Stop any control pills and don't use them for one month after surgery 14. Absolutely no smoking or vaping, or marijuana until the surgery and for at least the first 4 weeks. Only nicotine patches are allowed. 15. Send me weight measurements on 05/04/24 the day of surgery before you go to the hospital. 16. Avoid any steroids by mouth for any reason. Let me know if someone prescribes them to you 17. These instructions supersede anything else you read in the handbook, anything you watched in videos or classes or you were told by any other provider. If there is any conflict, you follow the above instructions and nothing else.
== END 2024-05-01 12:44 | disposition home or self-care (01) ==
PROVIDERS: PCP Internal Medicine; Visit Provider Surgery
DX: E66.01 Morbid (severe) obesity due to excess calories (principal); Z68.36 Body mass index [BMI] 36.0-36.9, adult
CPT/HCPCS: 99499

== ENCOUNTER → 2024-05-01 07:50 | Outpatient (BNVA) | payer MEDICAID, SELFPAY | PROVIDERS: PCP Internal Medicine; Visit Provider Surgery ==

== ENCOUNTER 2024-05-04 06:18 | Inpatient (IN) | payer MEDICAID, SELFPAY ==
[2024-04-24 10:45] LABS: MANUAL DIFF FLAG NO
[2024-04-24 11:05] LABS: Basophils Percent Auto 0.4 % (0-2); Eosinophils Absolute Auto 0.3 X10*3/uL (0.0-0.4); Eosinophils Percent Auto 4.8 % (0-4); Hematocrit 42.1 % (37.0-47.0); Hemoglobin 13.6 g/dl (12.0-16.0); Imm Gran Abs Auto 0.01 X10*3/uL (0.00-0.03); Imm Gran Pct Auto 0.2 % (0.0-0.4); Lymphocytes Absolute Auto 2.1 X10*3/uL (1.2-4.9); Lymphocytes Percent Auto 38.8 % (20-40); Mean Corpuscular HGB Conc 32.3 g/dl (31.0-35.0); Mean Corpuscular Hemoglobin 26.7 pg (27.0-33.0); Mean Corpuscular Volume 82.7 fL (80.0-98.0); Mean Platelet Volume 10.4 fL (9.4-12.3); Monocytes Absolute Auto 0.4 X10*3/uL (0.1-1.2); Monocytes Percent Auto 8.1 % (2-11); Neutrophils Absolute Auto 2.6 x10*3/uL (2.0-8.3); Neutrophils Percent Auto 47.7 % (45-73); Platelet Count 216 X10*3/uL (160-400); Red Blood Count 5.09 X10*6/uL (4.20-5.50); Red Cell Distribution Width 17.7 % (11.0-16.0); White Blood Count 5.5 X10*3/uL (4.8-10.8)
[2024-04-24 11:13] LABS: Estimated Average Glucose 117 mg/dL; Hemoglobin A1c % 5.7 % (<6.0); Prothrombin Time 11.9 SEC (11.1-13.3)
[2024-04-24 11:15] LABS: Partial Thromboplastin Time 35.2 SEC (26.0-36.8)
[2024-04-24 11:45] LABS: Alanine Aminotransferase 22 U/L (0-31); Albumin Level 4.4 g/dL (3.5-5.0); Alkaline Phosphatase 68 U/L (39-117); Anion Gap 15 (12-20); Aspartate Amino Transferase 22 U/L (5-31); Bilirubin Total 0.7 mg/dL (0.0-1.0); Blood Urea Nitrogen 19 mg/dL (9-16); C Reactive Protein < 0.10 mg/dL (< or = 0.50); Calcium 9.8 mg/dL (8.4-10.2); Carbon Dioxide 23 mmol/L (22-29); Chloride 108 mmol/L (96-108); Cholesterol 126 mg/dL (<200); Estimated Glomerular Filt Rate > 60; Glucose Random 89 mg/dL (60-115); HDL Cholesterol 44 mg/dL (>40); Iron 59 mcg/dL (30-160); LDL Cholesterol Calculated 67 mg/dL (<100); Percent Iron Saturation 16 % (15-50); Sodium 142 mmol/L (135-145); Total Iron Binding Capacity 380 mcg/dL (228-428); Total Protein 7.3 g/dL (6.5-8.0); Triglycerides 78 mg/dL (<150); Unsaturated Iron Binding 321 ug/dL
[2024-04-24 11:58] LABS: Vitamin B12 478 pg/mL (200-900)
[2024-04-24 12:01] LABS: Ferritin 5 ng/mL (10-250); TSH reflex Free T4 0.43 uIU/mL (0.32-4.0); Vitamin D 25-OH Total 43.3 ng/mL (>30)
[2024-04-26 11:42] VITALS: BMI 31.6
[2024-04-26 13:23] LABS: Zinc 66 mcg/dL (60-130)
[2024-04-28 06:48] LABS: Vitamin A 46 mcg/dL (38-98)
[2024-04-29 11:28] LABS: Vitamin B1 9 nmol/L (8-30)
--- NOTE | 2024-05-03 08:56 | HO.ANESPROP2 ---
Documented by User: Antonietta Boss NP 05/03/24 08:58 HPI - Anesthesia Eval Consult details Narrative: 63yo F for Gastric Bypass Revision Laparoscopic to Gastrectomy Sleeve,EGD,possibe diaphragmatic hernia,possible ventral hernia,possible open PMFSH Active Problems Active Problems: All Active Problems Pre-op evaluation (Acute) Epigastric abdominal pain (Acute) Cholelithiasis (Acute) Constipation (Acute) H. pylori infection (Acute) Anxiety disorder, unspecified (Acute) Vitamin B12 deficiency (Acute) Vitamin A deficiency (Acute) Vitamin D deficiency (Acute) Anxiety (Acute) Depression (Acute) BMI 36.0-36.9,adult (Acute) Obesity (Acute) Hx laparoscopic cholecystectomy (Acute) Intestinal malabsorption (Acute) Migraines (Acute) Insomnia (Acute) DJD (degenerative joint disease) (Acute) Hyperlipidemia (Acute) Hypertension (Acute) CAD (coronary artery disease) (Acute) Obstructive sleep apnea treated with continuous positive airway pressure (CPAP) (Acute) Past Medical History Medical History Stress incontinence Back pain Intestinal malabsorption Migraines Insomnia DJD (degenerative joint disease) Hyperlipidemia Hypertension CAD (coronary artery disease) Obstructive sleep apnea treated with continuous positive airway pressure (CPAP) Hypoglycemia Anxiety and depression Anemia Seronegative rheumatoid arthritis Asthma Family History Family History Father Hypertension Asthma Depression Diabetes Mother Diabetes Hypertension Family history of problems with anesthesia: No Surgical History Surgical History H/O colonoscopy History of surgery on arm History of lumbar fusion Hx laparoscopic cholecystectomy History of esophagogastroduodenoscopy (EGD) Hx of appendectomy H/O total hip arthroplasty Hx of cataract extraction H/O gastric bypass History of Problems with Anesthesia: No Social History Social History Are you a primary rn care manager to a significant other at home: Yes Do you presently have visiting nurse or other home services: No Alcohol intake: current Alcohol intake frequency: does not drink Patient Tobacco Use Status: Former Tobacco user Use of substances other than those prescribed or required for medical reasons: No Have you been hit, kicked, punched, or otherwise hurt by someone within the past year? If so, by whom?: No Are you DNR?: No Advance Directives: No Advance Directives Information Provided: No Advance Directives on File: No Recently lost weight without trying: No Eating poorly because of decreased appetite: No Nutrition Risks: No Nutritional Risk Patient : No : No Poor oral hygiene: Yes (upper crown) Meds Allergies Allergy/AdvReac Type Severity Reaction Status Date / Time penicillin V Allergy Mild hives Verified 05/01/24 12:42 acarbose AdvReac Mild Flatulence Verified 05/01/24 12:42 shellfish Allergy Severe Angioedema Uncoded 05/01/24 12:42 Home Medications ?Medication ?Instructions ?Recorded ?Confirmed ?Last Taken ?Type albuterol sulfate 90 mcg/actuation 2 puff inhalation Q4H PRN sob 06/04/23 05/01/24 04/30/24 History aerosol inhaler (Ventolin HFA) escitalopram oxalate 20 mg tablet 20 mg PO DAILY 06/04/23 05/01/24 05/04/24 History (Lexapro) lorazepam 0.5 mg tablet (Ativan) 0.5 mg PO DAILY PRN Anxiety 06/04/23 05/01/24 04/30/24 History mirabegron 50 mg tablet,extended 50 mg PO DAILY 06/04/23 05/01/24 05/04/24 History release 24 hr (Myrbetriq) prazosin 1 mg capsule 1 mg PO BEDTIME 06/04/23 05/01/24 04/30/24 History propranolol 160 mg capsule,24 160 mg PO DAILY 06/04/23 05/01/24 05/04/24 History hr,extended release topiramate 50 mg tablet 50 mg PO BID 06/04/23 05/04/24 04/30/24 History zolpidem 10 mg tablet (Ambien) 10 mg PO BEDTIME 06/04/23 05/01/24 04/30/24 History blood sugar diagnostic (FreeStyle #10 ea 10/26/23 05/01/24 04/30/24 History Lite Strips) blood-glucose meter (FreeStyle #1 ea 10/26/23 05/01/24 04/30/24 History Helvetia Lite kit) lancets 28 gauge (FreeStyle #100 ea 10/26/23 05/01/24 04/30/24 History Lancets) rosuvastatin 40 mg tablet 40 mg PO DAILY 02/16/24 05/01/24 04/30/24 History aspirin 81 mg tablet,delayed 81 mg PO DAILY 04/26/24 05/01/24 04/30/24 History release ezetimibe 10 mg tablet 10 mg PO DAILY 04/26/24 05/01/24 04/30/24 History fexofenadine 180 mg tablet 180 mg PO BID PRN Allergy Symptoms 04/26/24 05/01/24 04/30/24 History (Zari Allergy) omalizumab 150 mg subcutaneous 300 mg subcut Q4W 04/26/24 05/01/24 04/30/24 History solution (Xolair) ondansetron 4 mg disintegrating 4 mg PO Q12H PRN nausea and 04/26/24 05/01/24 04/30/24 History tablet vomiting quetiapine 25 mg tablet 50 mg PO BEDTIME 04/26/24 05/01/24 04/30/24 History azelastine 137 mcg (0.1 %) nasal 1 spray intranasal BID 05/04/24 Unknown History spray aerosol fluticasone propionate 110 2 puff inhalation BID 05/04/24 05/04/24 04/30/24 History mcg/actuation HFA aerosol inhaler pantoprazole 40 mg tablet,delayed 40 mg PO DAILY@0630 05/04/24 05/04/24 Unknown History release Exam Height,Weight and Vital Signs: Height 5 ft 4 in Weight 83.461 kg Pertinent Lab Results Pertinent Lab Results: Laboratory Tests 04/24/24 04/24/24 10:36 10:44 WBC 5.5 RBC 5.09 Hgb 13.6 Hct 42.1 MCV 82.7 MCH 26.7 L MCHC 32.3 RDW 17.7 H Plt Count 216 MPV 10.4 Immature Gran % (Auto) 0.2 Neut % (Auto) 47.7 Lymph % (Auto) 38.8 Patrick % (Auto) 8.1 Eos % (Auto) 4.8 H Baso % (Auto) 0.4 Lymph # (Auto) 2.1 Patrick # (Auto) 0.4 Eos # (Auto) 0.3 Baso # (Auto) 0.0 Abs Immat Gran (auto) 0.01 Absolute Neuts (auto) 2.6 Absolute Nucleated RBC 0.000 Nucleated RBC % (auto) 0.0 PT 11.9 INR 1.0 APTT 35.2 Sodium 142 Potassium 4.0 Chloride 108 Carbon Dioxide 23 Anion Gap 15 BUN 19 H Creatinine 0.67 Estim Creat Clear Calc TNP Estimated GFR > 60 Random Glucose 89 Estimat Average Glucose 117 Hemoglobin A1c % 5.7 Calcium 9.8 Iron 59 TIBC 380 % Saturation 16 Unsat Iron Binding 321 Ferritin 5 L Total Bilirubin 0.7 AST 22 ALT 22 Alkaline Phosphatase 68 C-Reactive Protein < 0.10 Total Protein 7.3 Albumin 4.4 Triglycerides 78 Cholesterol 126 LDL Cholesterol, Calc 67 HDL Cholesterol 44 Vitamin A 46 Vitamin B1 9 Vitamin B12 478 25-OH Vitamin D Total 43.3 TSH 0.43 Zinc 66 Blood Type O Positive Antibody Screen NEGATIVE Narrative Narrative: EKG 11/2023 Vent. Rate : 061 BPM Atrial Rate : 061 BPM P-R Int : 164 ms QRS Dur : 102 ms QT Int : 408 ms P-R-T Axes : 011 -09 026 degrees QTc Int : 410 ms Normal sinus rhythm Normal ECG No previous ECGs available Assessment and Plan Assessment Anesthesia Assessment: Chart Reviewed Final Anesthetic Review Family History of Problems with Anesthesia: No History of Problems with Anesthesia: No Documented by User: Jammie Griffith MD 05/04/24 13:05 [facility] Active Problems Active Problems: All Active Problems Pre-op evaluation (Acute) Epigastric abdominal pain (Acute) Cholelithiasis (Acute) Constipation (Acute) H. pylori infection (Acute) Anxiety disorder, unspecified (Acute) Vitamin B12 deficiency (Acute) Vitamin A deficiency (Acute) Vitamin D deficiency (Acute) Anxiety (Acute) Depression (Acute) BMI 36.0-36.9,adult (Acute) Obesity (Acute) Hx laparoscopic cholecystectomy (Acute) Intestinal malabsorption (Acute) Migraines (Acute) Insomnia (Acute) DJD (degenerative joint disease) (Acute) Hyperlipidemia (Acute) Hypertension (Acute) CAD (coronary artery disease) - denies recent chest pain Obstructive sleep apnea. Has not used CPAP recently. States breathing is fine Asthma - uses inhaler everyday Past Medical History Medical History Stress incontinence Back pain Intestinal malabsorption Migraines Insomnia DJD (degenerative joint disease) Hyperlipidemia Hypertension CAD (coronary artery disease) Obstructive sleep apnea treated with continuous positive airway pressure (CPAP) Hypoglycemia Anxiety and depression Anemia Seronegative rheumatoid arthritis Asthma Family History Family History Father Hypertension Asthma Depression Diabetes Mother Diabetes Hypertension Family history of problems with anesthesia: No Surgical History Surgical History H/O colonoscopy History of surgery on arm History of lumbar fusion Hx laparoscopic cholecystectomy History of esophagogastroduodenoscopy (EGD) Hx of appendectomy H/O total hip arthroplasty Hx of cataract extraction H/O gastric bypass History of Problems with Anesthesia: No Social History Social History Are you a primary rn care manager to a significant other at home: Yes Do you presently have visiting nurse or other home services: No Alcohol intake: current Alcohol intake frequency: does not drink Patient Tobacco Use Status: Former Tobacco user Use of substances other than those prescribed or required for medical reasons: No Have you been hit, kicked, punched, or otherwise hurt by someone within the past year? If so, by whom?: No Are you DNR?: No Advance Directives: No Advance Directives Information Provided: No Advance Directives on File: No Recently lost weight without trying: No Eating poorly because of decreased appetite: No Nutrition Risks: No Nutritional Risk Patient : No : No Poor oral hygiene: Yes (upper crown) Meds Allergies Allergy/AdvReac Type Severity Reaction Status Date / Time penicillin V Allergy Mild hives Verified 05/01/24 12:42 acarbose AdvReac Mild Flatulence Verified 05/01/24 12:42 shellfish Allergy Severe Angioedema Uncoded 05/01/24 12:42 Home Medications ?Medication ?Instructions ?Recorded ?Confirmed ?Last Taken ?Type albuterol sulfate 90 mcg/actuation 2 puff inhalation Q4H PRN sob 06/04/23 05/01/2424 History aerosol inhaler (Ventolin HFA) escitalopram oxalate 20 mg tablet 20 mg PO DAILY 06/04/23 05/01/24 05/04/24 History (Lexapro) lorazepam 0.5 mg tablet (Ativan) 0.5 mg PO DAILY PRN Anxiety 06/04/23 05/01/24 04/30/24 History mirabegron 50 mg tablet,extended 50 mg PO DAILY 06/04/23 05/01/24 05/04/24 History release 24 hr (Myrbetriq) prazosin 1 mg capsule 1 mg PO BEDTIME 06/04/23 05/01/24 04/30/24 History propranolol 160 mg capsule,24 160 mg PO DAILY 06/04/23 05/01/24 05/04/24 History hr,extended release topiramate 50 mg tablet 50 mg PO BID 06/04/23 05/04/24 04/30/24 History zolpidem 10 mg tablet (Ambien) 10 mg PO BEDTIME 06/04/23 05/01/24 04/30/24 History blood sugar diagnostic (FreeStyle #10 ea 10/26/23 05/01/24 04/30/24 History Lite Strips) blood-glucose meter (FreeStyle #1 ea 10/26/23 05/01/24 04/30/24 History Helvetia Lite kit) lancets 28 gauge (FreeStyle #100 ea 10/26/23 05/01/24 04/30/24 History Lancets) rosuvastatin 40 mg tablet 40 mg PO DAILY 02/16/24 05/01/24 04/30/24 History aspirin 81 mg tablet,delayed 81 mg PO DAILY 04/26/24 05/01/24 04/30/24 History release ezetimibe 10 mg tablet 10 mg PO DAILY 04/26/24 05/01/24 04/30/24 History fexofenadine 180 mg tablet 180 mg PO BID PRN Allergy Symptoms 04/26/24 05/01/24 04/30/24 History (Zari Allergy) omalizumab 150 mg subcutaneous 300 mg subcut Q4W 04/26/24 05/01/24 04/30/24 History solution (Xolair) ondansetron 4 mg disintegrating 4 mg PO Q12H PRN nausea and 04/26/24 05/01/24 04/30/24 History tablet vomiting quetiapine 25 mg tablet 50 mg PO BEDTIME 04/26/24 05/01/24 04/30/24 History azelastine 137 mcg (0.1 %) nasal 1 spray intranasal BID 05/04/24 Unknown History spray aerosol fluticasone propionate 110 2 puff inhalation BID 05/04/24 05/04/24 04/30/24 History mcg/actuation HFA aerosol inhaler pantoprazole 40 mg tablet,delayed 40 mg PO DAILY@0630 05/04/24 05/04/24 Unknown History release Exam Height,Weight and Vital Signs: Height 5 ft 4 in Weight 83.461 kg Vital Signs Temp Pulse Resp BP Pulse Ox O2 Del Method 05/04/24 06:19 98.4 F 58 19 146/75 H 98 Room Air Airway Mallampati Class: II TM Dist: >3cm Neck ROM: Full Loose/Missing/Broken Teeth: Yes (Missing molars. Denies broken, loose, missing teeth) Heart: RRR Lungs: CTAB Assessment and Plan Assessment Anesthesia Assessment: Anesthesia Plan Discussed and Chart Reviewed Final Anesthetic Review Family History of Problems with Anesthesia: No History of Problems with Anesthesia: No NPO: Yes ASA Class: III Final Preanesthetic Review: No Changes in Pt Med Stat, Meds/Allgs Chart Reviewed, Consent Obtained/Reviewed and Anes Risks/Benef Reviewed Patient Risk: Intermediate Procedure Risk: Intermediate Assessment/Block/Sedation in SS: Assess/Block/Sedation- Anesthetic Plan Anesthetic Plan: GA Disposition: Standard PACU and Inp. Admit - Standard Bed
[2024-05-04] VITALS (15 sets, daily range): BP systolic 117–146; BP diastolic 45–75; PULSE 58–83; RESP 12–20; TEMP 36–36.9; O2SAT 94–98
[2024-05-04] MEDS: Lactated Ringers 1,000 ML 999 ML IV (06:52)
[2024-05-04] MEDS: Aprepitant 32 MG/4.4 ML VIAL IVPUSH (06:52)
--- NOTE | 2024-05-04 07:44 | PC.NURSE ---
patient recieved 1 liter of fluid in preop
--- NOTE | 2024-05-04 11:29 | PM.OP ---
Brief Operative Note Date of Service: 05/04/24 Pre-op diagnosis: Obesity with comorbidities (see below) Post-op diagnosis: same Procedure: PROCEDURE: Rckhxnce-lkwlwm-dxwkdllxsvk, laparoscopic lysis of adhesions and laparoscopic sleeve gastrectomy INDICATIONS: This is a 63 year-old female with a BMI of 36 kg/m2, history of failed gastric bypass surgery and associated comorbid conditions as described previously. After appropriate workup and a 29.8 lbs or 14.2% preoperative weight loss was performed, the patient was electively scheduled for laparoscopic, possibly open sleeve gastrectomy of the gastric pouch. The risks and complications of the procedure were discussed with the patient in advance, particularly the possibility of ; pulmonary embolism; staple line leak; bleeding; GERD; cardiac, pulmonary, or renal complications; as well as long-term problems such as insufficient weight loss, vitamin deficiency, strictures, or ulcers. The patient understood all the risks, and was in agreement to proceed with surgery. DESCRIPTION OF PROCEDURE: After informed consent was obtained from the patient, the patient was given preoperative antibiotics, and was transferred to the operating room. After successful induction of general anesthesia, a Wong catheter and pneumatic compressive devices were placed on both lower extremities. An upper endoscopy was performed next. The oropharynx and esophagus appeared to be within normal limits. There was no diaphragmatic hernia present consistent with the findings of the preoperative upper GI. The stomach was entered. Then after all fluid and air were suctioned and the stomach was fully decompressed, the scope was withdrawn and secured in the mid esophagus. The patient was then prepped and draped in the usual sterile manner, and abdominal access was established at the right upper quadrant with the Dharmesh technique. A 12 mm blunt port was inserted, and the abdomen was insufflated with CO2 to a pressure of 15 mmHg. Under direct visualization, additional ports were placed, specifically two 5 mm Versi-step ports to the left upper quadrant, and a 5 mm Versi-Step port to the right upper quadrant. 1% lidocained plan was used to infiltrate all port sites as well as all fascia defects. Following that, the patient was placed in a steep reverse Trendelenburg position. An additional 5 mm port was placed to the right flank for the Mediflex retractor that was used to retract the left lobe of the liver. There were adhesions between the undersurface of the left lobe of the liver which was lysed with the Thunderbeat. Once this was done the liver retractor was re-positioned to get exposure to the hiatal area. Some omental fat overlying the Haresh limb was mobilized and the gastro-jejunostomy was identified. I continued by dissecting between the gastric remnant and the gastric pouch . There were some posterior short gastric vessels that were not previously divided. Those were clipped and divided with the Thunderbeat. Separation of the gastric pouch from the spleen was difficult because of the severe fibrotic reaction from the use of Peristrips at the previous operation. Nevertheless, those were divided and that allowed exposure to the left jared The gastro-esophageal fat pad was opened with the ultrasonic device (Thunderbeat, Olympus) and the anterior esophagus and hiatus were exposed. The angle of His was opened with the ultrasonic device the fundus of the stomach from any diaphragmatic and splenic attachments. Adhesiolysis took approximately 90 min to complete. There was significant redundancy of the stomach laterally and posteriorly. The redundant stomach was then divided with one Endo ATTILA-45 and one ATTILA-60 articulating purple load using the AEON stapler and loads. Every effort was made that the gastric sleeve had a tubular shape and an even caliber throughout. Once the sleeve resection was completed, the staple line of the gastric sleeve was reinforced with Hemoclips. The resected stomach was retrieved without difficulty from the Dharmesh port. ?An upper endoscopy was performed. There was no narrowing at the GE junction. The scope was easily advanced all the way to the pylorus which was clearly visualized. There was no narrowing anywhere and the sleeve's caliber was even throughout. The sleeve's staple line was inspected and there was no evidence of ischemia, bleeding or dehiscence. At that point the gastroscope was withdrawn from the patient?s mouth while we were decompressing the bowel and the stomach from any remaining air. I looked into the lesser sac to see how the sleeve was situating and it was situating well. There was no bleeding from the staple line, spleen, or short gastric vessels. The Mediflex retractor was removed, and the undersurface of the liver was inspected and there was no bleeding. The patient was placed in supine position. I closed the fascial defect of the 12 mm port site with a figure of eight #1 Polysorb suture. Then 30cc Ropivacaine plain with 10 mg of Dexamethasone were used to infiltrate the fascial closure as well as all skin incisions. A total of 7ml Zynrelef was applied in the Dharmesh wound. At this point, the abdomen was deflated, all ports were removed under direct vision, and no bleeding was noted from any of the port sites. The skin incisions were irrigated with saline and were closed with 4-0 absorbable monofilament sutures. Steri-Strips and OpSites were used to cover all incisions. The patient was extubated and was transferred in stable condition to the recovery room for further care. I was present and performed all mitchell parts of the procedure. Mr. Brooks was the airline pilot/first officer. There were no residents to assist with this case. Manish Cheung MD, PhD, FACS Surgeon: Ashwin Cheung MD Anesthesia: GETA, local and other (TAP block and 7ml Zynrelef) Was an Broadcast Maintenance Technician used for this Procedure?: No Broadcast Maintenance Technician: Afshin Brooks Estimated blood loss (mL): 10 IV fluids (mL): 2,300 Urine output (mL): 40 Pathology: other (Stomach) Condition: stable Disposition: PACU
--- NOTE | 2024-05-04 11:32 | P.PNGS_ITS ---
Subjective Subjective Date of Service: 05/04/24 Interval history: Feels well. Mild incisional pain. She is tolerating phase 1 bariatric diet Physical Exam 2 Vital Signs: Vital Signs: Last Vital Signs Temp 98.4 F 05/04/24 06:19 Pulse 58 05/04/24 06:19 Resp 19 05/04/24 06:19 BP 146/75 H 05/04/24 06:19 Pulse Ox 98 05/04/24 06:19 O2 Del Method Room Air 05/04/24 06:19 BMI result Body Mass Index 31.6 GI: Inspection: Yes normal to inspection, Yes incision (clean, dry and intact) and Yes obesity Palpation (GI): Soft to palpation Extrem: Right lower extremity: normal to inspection (no calf tenderness) L eft lower extremity: normal to inspection (no calf tenderness) Objective Data Active Medications Albuterol Sulfate (Albuterol Sulfate (0.083%) 2.5 Mg/3 Ml Vial.Neb) 2.5 mg INHALE ONCE PRN PRN Reason: Shortness of Breath/Wheezing Lactated Ringer's (Lr) 1,000 mls @ 100 mls/hr IVCONT .Q10H LIZETTE Labs 04/24/24 10:44 04/24/24 10:44 Procedures Date of Service Date of Service: 05/04/24 Progress Note: A&P Assessment and plan (1) Obesity: Status: Acute Assessment and Plan: s/p laparoscopic sleeve gastrectomy, lysis of adhesions, diaphragmatic hernia repair and gastropexy Doing well Will check am labs and if OK the patient will be discharged home (2) BMI 31.0-31.9,adult: Status: Acute (3) Obstructive sleep apnea treated with continuous positive airway pressure (CPAP): Status: Acute (4) CAD (coronary artery disease): Status: Acute (5) Hypertension: Status: Acute (6) Hyperlipidemia: Status: Acute (7) DJD (degenerative joint disease): Status: Acute (8) Insomnia: Status: Acute (9) Migraines: Status: Acute (10) Asthma: Status: Acute (11) Depression: Status: Acute (12) Anxiety: Status: Acute (13) Stress incontinence: Status: Acute (14) Liver fibrosis: Status: Acute Time Spent With Patient Time: Total time managing care of this patient today ____ minutes. Quality Stroke Does the patient have a stroke diagnosis?: No VTE Prior VTE?: No VTE Risk Level:: Surgical - moderate VTE Device Contraindication: N/A - Device Ordered VTE Drug Contraindication: Treatment Not Indicated
--- NOTE | 2024-05-04 15:43 | P.DS_ITS ---
DS: Providers Provider Date of Service: 05/05/24 Date of admission: 05/04/24 06:18 Primary care physician: Modesta Lockwood MD DS: Diagnosis Discharge Diagnosis (1) Obesity: Status: Acute (2) BMI 31.0-31.9,adult: Status: Acute (3) Obstructive sleep apnea treated with continuous positive airway pressure (CPAP): Status: Acute (4) CAD (coronary artery disease): Status: Acute (5) Hypertension: Status: Acute (6) Hyperlipidemia: Status: Acute (7) DJD (degenerative joint disease): Status: Acute (8) Insomnia: Status: Acute (9) Migraines: Status: Acute (10) Asthma: Status: Acute (11) Depression: Status: Acute (12) Anxiety: Status: Acute (13) Stress incontinence: Status: Acute (14) Liver fibrosis: Status: Acute DS: Summary Hospital Course Hospital Course: ADMITTING DIAGNOSIS: obesity, anxiety, depression, hld, josé lusi, htn, cad, ? DISCHARGE DIAGNOSIS: same, s/p revision of gastric bypass by laparoscopic sleeve gastrectomy of gastric pouch ? PAST SURGICAL HISTORY: gastric bypass, LS fusion, appendectomy, cholecystectomy, L THR ? PROCEDURE: upper endoscopy, revision of gastric bypass by laparoscopic sleeve gastrectomy of gastric pouch ? DISCHARGE SUMMARY: ? History of Present Illness: ? The patient is a?63 year-old woman with a BMI of?35.9 kg/m2 and associated co- morbidities as described above. The patient had extensive work-up,lost?26.2 lbs preoperatively and was electively scheduled for laparoscopic, possible open revision of gastric bypass with sleeve gastrectomy of gastric pouch. Risks and complications of the surgery were discussed with the patient in advance, particularly the possibility of , pulmonary embolism, anastomotic leak, bleeding, bowel injury, GERD, cardiac, renal or pulmonary complications. The patient understood all the risks and was in agreement with the surgical plan. ? Hospital Course: ? The patient underwent an uneventful laparoscopic revision of gastric bypass with sleeve gastrectomy of gastric pouch on the day of admission. Postoperatively, the patient was transferred to the surgical floor. The patient received IV Acetaminophen and IV dilaudid for pain control. Patient was started on bariatric phase 1 diet POD #0. On postoperative day one, the patient was feeling well without nausea, vomiting, fevers, or tachycardia. The patient had some mild incisional pain and the abdomen was soft. ? On the morning of postoperative day one, the patient was continued on 1 ounce of water or ice every half hour. During the day, the patient did fairly well, having some incisional pain, but able to ambulate adequately and to tolerate liquids well. ? Since the patient is doing well, we decided that the patient was ready to be discharged. The patient was given instructions to follow-up with me next week and to call my office for any fever over 101, persistent abdominal pain, nausea, vomiting, GERD, symptoms of DVT such as calf tenderness, or leg swelling, or pulmonary embolism such as chest pain or shortness of breath. The patient was also instructed to drink 40-60 ounces of liquids per day using the 1-ounce cups. The patient had been given prescriptions for Tylenol for pain, Zofran prn for nausea, and pantoprazole and carafate previously. The patient was encouraged to ambulate and use the incentive spirometer. The patient was allowed to shower, but no baths, and encouraged to stay active at home. All of these instructions were given to the patient personally. All questions were answered and the patient understood all instructions, the instructions were also given to the patient in print. Time Attestation Total time managing care of this patient today: 25 mintues. Discharge Coordination Time (in mins): 25 Quality: Safe Use of Opioids Does Pt have an Active Cancer Diagnosis on the Problem List?: No Quality: Stroke Does the patient have a stroke diagnosis?: No Physical Exam Vital Signs: Vital Signs: Last Vital Signs Temp 97 F 05/04/24 15:30 Pulse 73 05/04/24 15:30 Resp 18 05/04/24 15:30 BP 126/57 L 05/04/24 15:30 Pulse Ox 98 05/04/24 15:30 O2 Del Method Simple Mask 05/04/24 15:30 O2 Flow Rate 6 05/04/24 15:30 BMI result Body Mass Index 31.6 DS: Data Data Completed and Pending Pending studies at discharge: Pending at discharge 05/04/24 14:55 Surgical [PTH] Routine Discharge Plan Discharge Anticipated Discharge Date/Time: 05/05/24 10:00 Patient Disposition: Home, Self-Care Discharge Diagnosis: s/p revision of gastric bypass with sleeve gastrectomy of gastric pouch Referrals: Modesta Lockwood MD [Primary Care Provider] - 1 Week Discharge Medications: Continued sucralfate 100 mg/mL suspension 10 ml PO BID Qty: 600 2RF fexofenadine [Zari Allergy] 180 mg Tablet 180 mg PO BID ezetimibe 10 mg tablet 10 mg PO DAILY ondansetron 4 mg tablet,disintegrating 4 mg PO Q12H PRN (Reason: nausea and vomiting) quetiapine 25 mg Tablet 50 mg PO BEDTIME PRN (Reason: Insomnia) azelastine 137 mcg (0.1 %) aerosol,spray 1 spray intranasal BID fluticasone propionate 110 mcg/actuation HFA aerosol inhaler 2 puff inhalation BID pantoprazole 40 mg tablet,delayed release (DR/EC) 40 mg PO DAILY@0630 Myrbetriq 50 mg tablet extended release 24 hr 50 mg PO DAILY albuterol sulfate [Ventolin HFA] 90 mcg/actuation HFA aerosol inhaler 2 puff inhalation Q4H PRN (Reason: sob) topiramate 50 mg tablet 50 mg PO DAILY zolpidem [Ambien] 10 mg tablet 10 mg PO BEDTIME PRN (Reason: Insomnia) lorazepam [Ativan] 0.5 mg tablet 0.5 mg PO DAILY PRN (Reason: Anxiety) escitalopram oxalate [Lexapro] 20 mg tablet 20 mg PO DAILY prazosin 1 mg capsule 1 mg PO BEDTIME senna 8.6 mg capsule 8.6 mg PO DAILY Qty: 90 0RF rosuvastatin 40 mg tablet 40 mg PO DAILY Held aspirin 81 mg Tablet,Delayed Release (Dr/Ec) 81 mg PO DAILY Hold Instructions: until discussed with Dr Cheung Xolair 150 mg recon soln 300 mg subcut Q4W Hold Instructions: until discussed with Dr Cheung propranolol 160 mg capsule,extended release 24 hr 160 mg PO DAILY Hold Instructions: until discussed with Dr Cheung Discontinued cholecalciferol (vitamin D3) 125 mcg (5,000 unit) capsule 125 mcg PO DAILY Qty: 90 0RF mecobalamin (vitamin B12) 1,000 mcg tablet,disintegrating 1,000 mcg sublingual DAILY Qty: 90 0RF Rx Instructions: place tablet under tongue and allow to dissolve for at least30 secs before swallowing No Action (DME) FreeStyle Lite Strips Strip See Rx Instructions .ROUTE .MEDSUPPLY Qty: 10 Rx Instructions: As directed (DME) lancets [FreeStyle Lancets] 28 gauge misc See Rx Instructions .ROUTE .MEDSUPPLY Qty: 100 Rx Instructions: As directed (DME) blood-glucose meter [FreeStyle [place] Lite] Kit See Rx Instructions .ROUTE .MEDSUPPLY Qty: 1 Rx Instructions: As directed Discharge Orders: Discharge Order (Routine); Ordered 05/05/24 Ordered By: Afshin Brooks Activity on Discharge: No heavy lifting Stand Alone Forms: Patient Portal Discharge page Print Language: Icelandic Care Plan Goals: weight loss Health Concerns: obesity Plan of Treatment: No tub baths, sex or returning to work until discussed at first post op appointment. No exercise, alcohol, tobacco or illegal drug use. Continue to use incentive spirometer hourly while awake. Walk in home for 5- 10 minutes every 2 hours during the first week. Follow all instructions in the bariatric handbook and call with any questions.Discharge Instructions 1. Please call your doctor or come back to the emergency room should any new symptoms arise. 2. You will receive a courtesy call from [facility] 24-48 hours after discharge. 3. Activity: abstain from alcohol, practice limited stair climbing, no bending, no driving, no exercise, no illicit substances, no lifting, no sex, no tub bath, no work. 4. Diet: continue as discussed with Dr. Cheung. 5. Dressing Change/Wound Care: Your incision is covered by clear bandages and guaze underneath. If the area is tender, you may apply an ice pack for short intervals (no more than 20 minutes on, followed by at least 20 minutes off). Do not apply heat. Do not use creams, lotions, or topical antibiotics unless instructed to do so by your surgeon. These can cause infection or allergic reaction. 6. Call your doctor if: - Your temperature exceeds 101.5 F - You experience excessive pain or swelling - You have an unexpected reaction to medication - You have excessive bleeding - You experience continued vomiting/nausea - Your incision begins to separate - Your incision shows signs of infection such as increased redness, swelling, excessive pain, heat, or drainage (light blood or clear fluid is normal) 7. General instructions: No lifting greater than 5 lbs for 1 week and not more than 20lbs the next 3?weeks. No driving until seen at the office in 5-7 days after surgery. If you do not move your bowels in the next 2 days, please tell?Dr. Cheung. Please walk around your home every hour or two to prevent blood clots from forming in your legs. You do not need to wake from sleeping to walk. Please sleep in a bed or couch to prevent kinking at the hips and knees. Please take your incentive spirometer (your lung database development project manager) home with you and use it for the next few days to prevent pneumonia. You may shower, no hot tubs, baths or swimming pools.?Please follow the post op diet instructions you are?given by Dr Cheung? and text me daily at 5-6pm for an update.?If you have any issues or concerns or questions please communicate this to him via text.? The Celebrate shakes have all of the bariatric vitamins you need if you consume these shakes. If you are drinking other protein shakes, you will need to purchase the Celebrate multivitamins and calcium that are available in the hospital gift shop on the first floor of the [facility].??Do not take anything without first discussing with Dr Cheung. Please make sure you are consuming at least 40 ounces of fluids per day starting the?day AFTER your discharge from the hospital. Always drink 1-2 ml per minute using the 5ml?syringe. If you drink faster you may experience?bloating,?gas pain, burping, nausea or heartburn. In that case please slow down your pace and use the syringe to?understand better the?proper?pace and volume of drinking. Do not hesitate to contact the office with any questions at . The patient's medical history has been reviewed and they are considered low risk for post op DVT and therefore DVT prophylaxis is not considered necessary. Travel after surgery was reviewed. The patient has not disclosed any travel plans during the first 30 days after surgery and they have been advised that within the first 30 days after surgery any bus, plane, train or car travel over 2 hours in duration is contraindicated due to the possibility of developing blood clots from immobility. Any travel, needs to include periods of ambulation of 10 minutes in duration every 2 hours.? The patient was instructed to discuss any plans for travel during this period with their bariatric surgeon. Assessment: stable s/p revision of gastric bypass by laparoscopic sleeve gastrectomy of gastric pounch
[2024-05-04] MEDS: HYDROmorphone HCl 0.5 MG/0.5 ML SYRINGE 0.25 MG IVPUSH ×2 (15:53→15:58)
[2024-05-04 16:06] LABS: Hematocrit 37.2 % (37.0-47.0)
[2024-05-04 16:22] LABS: Anion Gap 13 (12-20); Blood Urea Nitrogen 11 mg/dL (9-16); Calcium 8.9 mg/dL (8.4-10.2); Carbon Dioxide 22 mmol/L (22-29); Chloride 108 mmol/L (96-108); Creatinine Clr Calc Pharmacy 98.9; Estimated Glomerular Filt Rate > 60; Glucose Random 116 mg/dL (60-115); Potassium 3.7 mmol/L (3.3-5.1); Sodium 139 mmol/L (135-145)
[2024-05-04] MEDS: fentaNYL citrate/PF 100 MCG/2 ML VIAL 25 MCG IVPUSH ×2 (16:25→16:30)
[2024-05-04] MEDS: Lactated Ringers 1,000 ML 100 ML IVCONT (17:18)
--- NOTE | 2024-05-04 17:24 | PHA.MEDREC ---
Pharmacy Consult ? Medication Reconciliation Pharmacy has completed the medication reconciliation.
[2024-05-04] MEDS: Acetaminophen 1,000 MG/100 ML PIGGYBACK 16.7 MG IV ×2 (18:21→23:54)
[2024-05-04] MEDS: Fluticasone Propionate 100 MCG BLST.W.DEV 2 PUFF INHALE (19:46)
--- NOTE | 2024-05-04 19:59 | PC.RT ---
Pt refusing CPAP for tonight; will call if needed
[2024-05-04] MEDS: Famotidine/PF 20 MG/2 ML VIAL IVPUSH (20:24)
[2024-05-04] MEDS: Prazosin HCL 1 MG CAPSULE PO (20:24)
[2024-05-04] MEDS: 0.9 % Sodium Chloride Flush 3 ML SYRINGE IVFLUSH (20:24)
--- NOTE | 2024-05-05 00:08 | PC.NURSE ---
Assumed care of patient at 19:00. Pt continues on s3. Pt is s/p laparoscopic revision of gastric bypass with sleeve gastrectomy of gastric pouch on 05/04. A&Ox4. Tolerating phase I diet with encouragement, denies n/v. Upper abdominal lap sites x5 with DSD and tegaderms are c/d/i without redness or drainage. Continues with abdominal binder. Abdomen is appropriately tender. Pt reports pain is well managed with IV tylenol as ordered. Pt has ambulated three times since press writer assumed care. Indwelling urinary catheter in place was removed at midnight 05/05 without issues. Pt immediately reported urge and was assisted to the bathroom to void. Pt voided odorless yellow urine but unfortunately missed the hat in the toilet. Post-void residual bladder scan done showing one ml. Pt denies pelvic pressure or discomfort. Continues with LR infusing as ordered. Pt refusing ordered HS cpap, states I haven't been using it for months at home . Pt continues on 2L nc to maintain spo2 in the mid 90's as pt unable to wean/ desatted to 90% when reduced to 1L. IS educated on and encouraged, pt achieving 1500.
[2024-05-05] MEDS: Lactated Ringers 1,000 ML 100 ML IVCONT (02:42)
[2024-05-05] MEDS: HYDROmorphone HCl 0.5 MG/0.5 ML SYRINGE 0.25 MG IVPUSH (03:04)
[2024-05-05 03:34] VITALS: RESP 18
[2024-05-05 04:00] VITALS: BP 118/58; PULSE 68; RESP 16; TEMP 36.5; O2SAT 95
[2024-05-05] MEDS: Topiramate 25 MG TABLET 50 MG PO (05:28)
[2024-05-05] MEDS: Acetaminophen 1,000 MG/100 ML PIGGYBACK 16.7 MG IV (05:29)
--- NOTE | 2024-05-05 06:14 | PC.NURSE ---
Patient c/o migraine headache overnight. States she takes extra strength tylenol at home when this happens. Patient is already on continuous IV tylenol per JAN. Pt given prn dilaudid as ordered with short-lived effect. Covering DIMPLE Brooks notified and vitals discussed, written order to give morning topomax dose early but not propranolol. Topomax given and new IV tylenol hung per JAN schedule. Patient resting in bed with eyes closed on reassessment. Breathing observed even and unlabored without distress.
[2024-05-05 06:51] LABS: MANUAL DIFF FLAG NO
[2024-05-05 07:05] LABS: Basophils Percent Auto 0.2 % (0-2); Hematocrit 35.2 % (37.0-47.0); Hemoglobin 11.7 g/dl (12.0-16.0); Imm Gran Abs Auto 0.03 X10*3/uL (0.00-0.03); Imm Gran Pct Auto 0.5 % (0.0-0.4); Lymphocytes Percent Auto 17.2 % (20-40); Mean Corpuscular HGB Conc 33.2 g/dl (31.0-35.0); Mean Corpuscular Volume 81.1 fL (80.0-98.0); Mean Platelet Volume 10.8 fL (9.4-12.3); Monocytes Absolute Auto 0.4 X10*3/uL (0.1-1.2); Monocytes Percent Auto 6.5 % (2-11); Neutrophils Absolute Auto 4.4 x10*3/uL (2.0-8.3); Neutrophils Percent Auto 75.6 % (45-73); Platelet Count 192 X10*3/uL (160-400); Red Blood Count 4.34 X10*6/uL (4.20-5.50); Red Cell Distribution Width 17.2 % (11.0-16.0); White Blood Count 5.9 X10*3/uL (4.8-10.8)
[2024-05-05 07:16] VITALS: BP 154/67; PULSE 81; RESP 12; TEMP 36.2; O2SAT 95
[2024-05-05 07:19] LABS: Anion Gap 11 (12-20); Blood Urea Nitrogen 8 mg/dL (9-16); Carbon Dioxide 23 mmol/L (22-29); Chloride 109 mmol/L (96-108); Estimated Glomerular Filt Rate > 60; Glucose Random 128 mg/dL (60-115); Potassium 4.2 mmol/L (3.3-5.1); Sodium 139 mmol/L (135-145)
[2024-05-05] MEDS: Famotidine/PF 20 MG/2 ML VIAL IVPUSH (08:09)
[2024-05-05] MEDS: Propranolol HCL LA 80 MG CAP.SA.24H 160 MG PO (08:10)
[2024-05-05] MEDS: Escitalopram Oxalate 20 MG TABLET PO (08:10)
--- NOTE | 2024-05-05 15:12 | HO.POSTANES ---
Post Anesthesia Evaluation Post Anesthesia Evaluation Date of Service: 05/05/24 Vital Signs: Vital Signs Temp Pulse Resp BP Pulse Ox O2 Del Method O2 Flow Rate 05/05/24 07:16 97.2 F 81 12 154/67 H 95 Nasal Cannula 1 05/05/24 04:00 97.7 F 68 16 118/58 L 95 Nasal Cannula 1 05/05/24 03:34 18 Anesthesia: General Endotracheal-GETA Mental Status: Awake Pain Control: Satisfactory Nausea/Vomiting: None Hydration: Adequate Anesthesia-Related Issues: No Anes. Related Issues
== END 2024-05-05 10:48 | disposition home or self-care (01) | DRG 403 ==
LOC: HO.SSSA 15:47 → HO.S3 15:55
PROVIDERS: Physician Assistant Surgical; Admitting Provider Surgery; PCP Internal Medicine; Visit Provider Surgery
PROC: 0DQ64ZZ Repair Stomach, Percutaneous Endoscopic Approach (ICD-10-PCS; CPT 43771; principal; 2024-05-04 10:20)
DX: E66.01 Morbid (severe) obesity due to excess calories (principal); K74.00 Hepatic fibrosis, unspecified; E78.5 Hyperlipidemia, unspecified; F41.9 Anxiety disorder, unspecified; J45.909 Unspecified asthma, uncomplicated; G47.33 Obstructive sleep apnea (adult) (pediatric); I25.10 Atherosclerotic heart disease of native coronary artery without angina pectoris; G43.909 Migraine, unspecified, not intractable, without status migrainosus; F32.A Depression, unspecified; N39.3 Stress incontinence (female) (male); K66.0 Peritoneal adhesions (postprocedural) (postinfection); Z68.36 Body mass index [BMI] 36.0-36.9, adult; M06.00 Rheumatoid arthritis without rheumatoid factor, unspecified site; Z98.84 Bariatric surgery status; Z87.891 Personal history of nicotine dependence; Z79.82 Long term (current) use of aspirin; Z79.51 Long term (current) use of inhaled steroids; Z79.899 Other long term (current) drug therapy
CPT/HCPCS: 36415; 80048; 80053; 80061; 82306; 82607; 82728; 83036; 83540; 84425; 84443; 84590; 84630; 85014; 85018; 85025; 85610; 85730; 86140; 86850; 86900; 86901; 88304; 88305; 88307; 88342; 94640; A4649; C1758; C9088; C9145; J0131; J1100; J1170; J1956; J2250; J2405; J2704; J2795; J3010; J7120

== ENCOUNTER → 2024-05-04 06:18 | Outpatient (BNV) | payer MEDICAID, SELFPAY | PROVIDERS: Admitting Provider Surgery; PCP Internal Medicine; Visit Provider Surgery | DX: E66.01 Morbid (severe) obesity due to excess calories (principal); Z68.36 Body mass index [BMI] 36.0-36.9, adult; Z68.31 Body mass index [BMI] 31.0-31.9, adult; G47.33 Obstructive sleep apnea (adult) (pediatric); I25.10 Atherosclerotic heart disease of native coronary artery without angina pectoris; I10 Essential (primary) hypertension; E78.5 Hyperlipidemia, unspecified; M19.90 Unspecified osteoarthritis, unspecified site; G47.00 Insomnia, unspecified; G43.909 Migraine, unspecified, not intractable, without status migrainosus; J45.909 Unspecified asthma, uncomplicated; F32.A Depression, unspecified; F41.9 Anxiety disorder, unspecified; N39.3 Stress incontinence (female) (male); K74.00 Hepatic fibrosis, unspecified | CPT/HCPCS: 43775; 99024 ==

== ENCOUNTER 2024-05-12 10:17 | Outpatient (AMB) | payer MEDICAID, SELFPAY ==
--- NOTE | 2024-05-12 10:51 | A.OFFVIS_ITS ---
VS Expanded 05/12/24 11:12 BP 119/67 Blood Pressure Location Rt brachial Blood Pressure Position Sitting Pulse 60 Pulse Source Pulse Oximeter Temp 97.7 F Temperature Source Temporal Artery Scan Pulse Oximetry 95 Oxygen Delivery Method Room Air Height 5 ft 4 in Weight 176 lb 6.4 oz BMI 30.3 Body Fat % 37.3 Body Fat Mass 65.6 Fat Free Mass 110.6 Visceral Fat Rating 10.0 Body Water % 44.47 Body Water Mass 105.2 Muscle Mass/Score 1,501 Intake Visit Reasons: (OV) PO LSG 05/04/24 Allergies penicillin V Allergy (Mild, Verified 05/12/24 10:59) hives acarbose Adverse Reaction (Mild, Verified 05/12/24 10:59) Flatulence shellfish Allergy (Severe, Uncoded 05/01/24 12:42) Angioedema HPI Comments Details: Patient is a 63-year-old female who returns to the office today in follow-up. She is 8 days status post revision of gastric bypass to sleeve gastrectomy of gastric pouch. She is tolerating 2 celebrate 4 in 1 shakes with 2 scoops each at 10-12, 2-4. And 1 celebrate rebuild with 1 scoop at 6-8. She is additionally drinking approximately 48-52 oz of fluids per day. She has moved her bowels and has no complaints of pain. [facility] Medical History (Updated 05/09/24 @ 00:03 by Joseph Schneider) Pre-op evaluation Epigastric abdominal pain Cholelithiasis H. pylori infection BMI 36.0-36.9,adult Stress incontinence Back pain Intestinal malabsorption Migraines Insomnia DJD (degenerative joint disease) Hyperlipidemia Hypertension CAD (coronary artery disease) Obstructive sleep apnea treated with continuous positive airway pressure (CPAP) Hypoglycemia Anxiety and depression Anemia Seronegative rheumatoid arthritis Asthma Surgical History (Updated 05/12/24 @ 11:14 by Svitlana Cramer CMA) S/P laparoscopic sleeve gastrectomy H/O colonoscopy History of surgery on arm History of lumbar fusion Hx laparoscopic cholecystectomy History of esophagogastroduodenoscopy (EGD) Hx of appendectomy H/O total hip arthroplasty Hx of cataract extraction H/O gastric bypass Family History Father Hypertension Asthma Depression Diabetes Mother Diabetes Hypertension Social History Household Members: Family Housing: House Are you a primary director critical care to a significant other at home: Yes Do you presently have visiting nurse or other home services: No Alcohol intake: current Alcohol intake frequency: does not drink Patient Tobacco Use Status: Former Tobacco user Physical Exam GI Inspection: Yes incision (Mild bruising, otherwise clean, dry, intact.) Assessment & Plan Assessment & Plan (1) S/P laparoscopic sleeve gastrectomy: Comment: revision of GBP Code(s): Z98.84 - Bariatric surgery status Category: Surgical Plan: POD 8 s/p LSG of retained pouch of previous gastric bypass gastric by Dr Cheung on 05/04/2024. Original gastric bypass performed in 2004. She additionally had a laparoscopic cholecystectomy performed by Dr. Cheung on 02/29/2024. Weight loss prior to surgery was 26.2 pounds or 12.5 % TBWL. Original weight on 11/22/2023 was 209.6 pounds and op weight was 35.9 pounds. Be sure to text Dr Cheung exactly 1 week after surgery your weight from your home scale so he can adjust your meal plan. Continue meal plan until f/u w Merle in 2 weeks May shower, no submersion in bath for another week Continue abdominal binder with activity and exercise for the next 2 weeks. Exercise prior to surgery was stationary bike and may resume No abdominal exercises for 6 weeks post operatively Will be emailed link to post op video for review Reminded of the pace of drinking, 2 mL per minute, 1 oz/15 min. Of note, patient does take propranolol 160 mg as needed for headaches. Given her soft blood pressure of 119/67 with a pulse of 60, I advised her to call her neurologist to discuss a different class of medications that would not affect her blood pressure or heart rate. She states that she will do so. I instructed her not to take her propranolol unless directed by her neurologist.
[2024-05-12 11:12] VITALS: BP 119/67; PULSE 60; TEMP 36.5; O2SAT 95; BMI 30.3
== END 2024-05-12 11:14 | disposition home or self-care (01) ==
PROVIDERS: PCP Internal Medicine; Visit Provider Physician Assistant Surgical
DX: Z98.84 Bariatric surgery status (principal)
CPT/HCPCS: 99024

== ENCOUNTER → 2024-05-12 10:17 | Outpatient (BNVA) | payer MEDICAID, SELFPAY | PROVIDERS: PCP Internal Medicine; Visit Provider Physician Assistant Surgical | DX: Z48.815 Encounter for surgical aftercare following surgery on the digestive system (principal); Z98.84 Bariatric surgery status | CPT/HCPCS: 99212 ==

== ENCOUNTER 2024-06-27 13:48 | Outpatient (AMB) | payer MEDICAID, SELFPAY ==
--- NOTE | 2024-06-27 13:33 | A.OFFVIS_ITS ---
VS Expanded 06/27/24 13:40 Height 5 ft 4 in Weight 165 lb BMI 28.3 Intake Visit Reasons: tele PO LSG 05/04/24 Allergies penicillin V Allergy (Mild, Verified 05/12/24 10:59) hives acarbose Adverse Reaction (Mild, Verified 05/12/24 10:59) Flatulence shellfish Allergy (Severe, Uncoded 05/01/24 12:42) Angioedema Medication List - Last Reconciled 06/27/24 by DIMPLE Brown albuterol sulfate 90 mcg/actuation (Ventolin HFA) 2 puffs inhalation Q4H PRN aspirin 81 mg PO DAILY azelastine 1 spray intranasal BID blood sugar diagnostic (FreeStyle Lite Strips) As directed blood-glucose meter (FreeStyle [place] Lite kit) As directed escitalopram oxalate (Lexapro) 20 mg PO DAILY ezetimibe 10 mg PO DAILY fexofenadine (Zari Allergy) 180 mg PO BID fluticasone propionate 110 mcg/actuation 2 puffs inhalation BID lancets (FreeStyle Lancets) As directed lorazepam (Ativan) 0.5 mg PO DAILY PRN mirabegron ER (Myrbetriq) 50 mg PO DAILY omalizumab (Xolair) 300 mg subcut Q4W ondansetron 4 mg PO Q12H PRN pantoprazole 40 mg PO DAILY@0630 prazosin 1 mg PO BEDTIME propranolol ER 160 mg PO DAILY quetiapine 50 mg PO BEDTIME PRN rosuvastatin 40 mg PO DAILY sennosides (senna) 8.6 mg PO DAILY sucralfate 10 mL PO BID topiramate 50 mg PO DAILY zolpidem (Ambien) 10 mg PO BEDTIME PRN HPI Comments Details: This?is a?63?yo female who is s/p revision of gastric bypass to sleeve gastrectomy of gastric pouch 05/04/2024. Presents for 7 week post op visit. Weight at last visit on 05/12/2024 was 176.4 pounds with a BMI of 30.3, weight last time she checked was 165 pounds, representing a 11.4 pound weight loss with a BMI today of 28.3.? No complaints of nausea, emesis, abdominal pain or reflux, or constipation. Pt traveling out of town starting tomorrow until 07/12. Has not been able to weigh herself- her dad and she is helping with family affairs. Not taking propranolol, has not yet spoken to neurologist. Has had a few episodes of low blood sugar, takes a glucose tablet, was started on a protein bar which has helped. Present meal plan includes: 2 celebrate 4 in 1 shakes with 2 scoops each 1 bar Considering starting some solid soft protein- has not tried yet taking Gatorade or Powerade zero Exercise routine includes: doing some walking but has some hip pain [facility] Medical History (Updated 05/09/24 @ 00:03 by Joseph Schneider) Pre-op evaluation Epigastric abdominal pain Cholelithiasis H. pylori infection BMI 36.0-36.9,adult Stress incontinence Back pain Intestinal malabsorption Migraines Insomnia DJD (degenerative joint disease) Hyperlipidemia Hypertension CAD (coronary artery disease) Obstructive sleep apnea treated with continuous positive airway pressure (CPAP) Hypoglycemia Anxiety and depression Anemia Seronegative rheumatoid arthritis Asthma Surgical History (Updated 05/12/24 @ 11:14 by Svitlana Cramer CMA) S/P laparoscopic sleeve gastrectomy H/O colonoscopy History of surgery on arm History of lumbar fusion Hx laparoscopic cholecystectomy History of esophagogastroduodenoscopy (EGD) Hx of appendectomy H/O total hip arthroplasty Hx of cataract extraction H/O gastric bypass Family History Father Hypertension Asthma Depression Diabetes Mother Diabetes Hypertension Social History Household Members: Family Housing: House Are you a primary healthcare business analyst to a significant other at home: Yes Do you presently have visiting nurse or other home services: No Alcohol intake: current Alcohol intake frequency: does not drink Patient Tobacco Use Status: Former Tobacco user Telehealth Telehealth Telehealth Platform: Telephone Location of provider rendering services: practice address Location of patient: address on file Patient Identification confirmed using: Name, : Yes Telehealth method: voice only Patient verbally consented to treatment: Yes Patient verbally consented to billing insurance company: Yes Patient informed of any privacy concerns related to visit: Yes Minutes spent on Phone/Video with Pt.: 15 Assessment & Plan Assessment & Plan (1) S/P laparoscopic sleeve gastrectomy: Comment: revision of GBP Code(s): Z98.84 - Bariatric surgery status Category: Surgical (2) Obesity: Code(s): E66.9 - Obesity, unspecified Category: Medical Qualifiers: Obesity type: due to excess calories Obesity classification: adult class 2 (BMI 35 - 39.9) Serious obesity comorbidity presence: with serious comorbidity Body mass index: BMI 36.0-36.9 Qualified Code(s): E66.01 - Morbid (severe) obesity due to excess calories; Z68.36 - Body mass index [BMI] 36.0- 36.9, adult Plan Pt will continue to check in with Dr Whitehead regarding meal plan. Stay consistent with meal plan and check in weekly even if unable to weigh herself due to travel or family obligations. Will exercise as much as able given her hip pain. Continue carafate until it runs out, let us know if she runs out of PPI and we can refill. RTC end of Jul for 3 month visit. I spent a total of 30 minutes reviewing/updating records, examining the patient and counseling the patient on weight management as detailed above.
[2024-06-27 13:40] VITALS: BMI 28.3
== END 2024-06-27 13:50 | disposition home or self-care (01) ==
LOC: HO.HBS 13:48
PROVIDERS: PCP Internal Medicine; Visit Provider Physician Assistant Surgical
DX: E66.01 Morbid (severe) obesity due to excess calories (principal); Z68.36 Body mass index [BMI] 36.0-36.9, adult; Z98.84 Bariatric surgery status
CPT/HCPCS: 99024

== ENCOUNTER → 2024-06-27 13:48 | Outpatient (BNVA) | payer MEDICAID, SELFPAY | PROVIDERS: PCP Internal Medicine; Visit Provider Physician Assistant Surgical ==

== ENCOUNTER 2024-08-08 10:42 | Outpatient (AMB) | payer MEDICARE, MEDICAID, SELFPAY ==
--- NOTE | 2024-08-08 10:34 | A.OFFVIS_ITS ---
VS Expanded 08/08/24 10:45 Height 5 ft 4 in Weight 162 lb BMI 27.8 Intake Visit Reasons: TELEPHONE PO LSG 05/04/24 Allergies penicillin V Allergy (Mild, Verified 05/12/24 10:59) hives acarbose Adverse Reaction (Mild, Verified 05/12/24 10:59) Flatulence shellfish Allergy (Severe, Uncoded 05/01/24 12:42) Angioedema Medication List - Last Reconciled 08/08/24 by DIMPLE Brown albuterol sulfate 90 mcg/actuation (Ventolin HFA) 2 puffs inhalation Q4H PRN aspirin 81 mg PO DAILY azelastine 1 spray intranasal BID blood sugar diagnostic (FreeStyle Lite Strips) As directed blood-glucose meter (FreeStyle [place] Lite kit) As directed escitalopram oxalate (Lexapro) 20 mg PO DAILY ezetimibe 10 mg PO DAILY fexofenadine (Zari Allergy) 180 mg PO BID fluticasone propionate 110 mcg/actuation 2 puffs inhalation BID lancets (FreeStyle Lancets) As directed lorazepam (Ativan) 0.5 mg PO DAILY PRN mirabegron ER (Myrbetriq) 50 mg PO DAILY omalizumab (Xolair) 300 mg subcut Q4W ondansetron 4 mg PO Q12H PRN pantoprazole 40 mg PO DAILY@0630 prazosin 1 mg PO BEDTIME propranolol ER 160 mg PO DAILY quetiapine 50 mg PO BEDTIME PRN rosuvastatin 40 mg PO DAILY sennosides (senna) 8.6 mg PO DAILY sucralfate 10 mL PO BID topiramate 50 mg PO DAILY zolpidem (Ambien) 10 mg PO BEDTIME PRN HPI Comments Details: This?is a?63?yo female who is s/p LSG 05/04/2024. Presents for 3 month post op visit. Weight at last visit on 06/27/2024 was 165 pounds with a BMI of 28.3, weight today is 162 pounds, representing a 3 pound weight loss with a BMI today of 27.8.? No complaints of nausea, emesis, abdominal pain or reflux, or constipation. She reports I'm not in a good place right now. Still dealing with the passing of her father. Present meal plan includes: 2 celebrate 4 in 1 shakes with 2 scoops each 1 bar 4 forks protein, 4 forks veg taking Gatorade or Powerade zero Exercise routine includes: using bike but has some hip pain, supposed to go to PT but needs a new referral [facility] Medical History (Updated 08/08/24 @ 10:53 by DIMPLE Brown) Pre-op evaluation Epigastric abdominal pain Cholelithiasis H. pylori infection BMI 36.0-36.9,adult Stress incontinence Back pain Intestinal malabsorption Migraines Insomnia DJD (degenerative joint disease) Hyperlipidemia Hypertension CAD (coronary artery disease) Obstructive sleep apnea treated with continuous positive airway pressure (CPAP) Hypoglycemia Anxiety and depression Anemia Seronegative rheumatoid arthritis Asthma Surgical History (Updated 05/12/24 @ 11:14 by Svitlana Cramer CMA) S/P laparoscopic sleeve gastrectomy H/O colonoscopy History of surgery on arm History of lumbar fusion Hx laparoscopic cholecystectomy History of esophagogastroduodenoscopy (EGD) Hx of appendectomy H/O total hip arthroplasty Hx of cataract extraction H/O gastric bypass Family History Father Hypertension Asthma Depression Diabetes Mother Diabetes Hypertension Social History Household Members: Family Housing: House Are you a primary care specialist to a significant other at home: Yes Do you presently have visiting nurse or other home services: No Alcohol intake: current Alcohol intake frequency: does not drink Patient Tobacco Use Status: Former Tobacco user Telehealth Telehealth Telehealth Platform: Telephone Location of provider rendering services: other Location of patient: address on file Patient Identification confirmed using: Name, : Yes Telehealth method: voice only Patient verbally consented to treatment: Yes Patient verbally consented to billing insurance company: Yes Patient informed of any privacy concerns related to visit: Yes Minutes spent on Phone/Video with Pt.: 18 Assessment & Plan Assessment & Plan (1) S/P laparoscopic sleeve gastrectomy: Comment: revision of GBP Code(s): Z98.84 - Bariatric surgery status Category: Surgical (2) Overweight: Code(s): E66.3 - Overweight Category: Medical Plan Continue with meal plan per Dr. Whitehead, send weekly updates. Bike for exercise, discussed choosing exercises that do not aggravate her hip pain. She reports some bothersome excess skin of abdomen, may be interested in panniculectomy in the future. RTC 6 weeks. I spent a total of 30 minutes reviewing/updating records, examining the patient and counseling the patient on weight management as detailed above.
[2024-08-08 10:45] VITALS: BMI 27.8
== END 2024-08-08 11:02 | disposition home or self-care (01) ==
LOC: HO.HBS 10:42
PROVIDERS: PCP Internal Medicine; Visit Provider Physician Assistant Surgical
DX: E66.3 Overweight (principal); Z68.27 Body mass index [BMI] 27.0-27.9, adult; Z90.3 Acquired absence of stomach [part of]; Z98.84 Bariatric surgery status
CPT/HCPCS: 98967

== ENCOUNTER → 2024-08-08 10:42 | Outpatient (BNVA) | payer MEDICARE, MEDICAID, SELFPAY | PROVIDERS: PCP Internal Medicine; Visit Provider Physician Assistant Surgical ==

== ENCOUNTER 2024-09-27 10:08 | Outpatient (AMB) | payer OTHER, SELFPAY ==
--- NOTE | 2024-09-27 10:02 | A.OFFVIS_ITS ---
Intake Visit Reasons: TELEPHONE PO LSG 05/04/24 Allergies penicillin V Allergy (Mild, Verified 05/12/24 10:59) hives acarbose Adverse Reaction (Mild, Verified 05/12/24 10:59) Flatulence shellfish Allergy (Severe, Uncoded 05/01/24 12:42) Angioedema Medication List - Last Reconciled 09/27/24 by DIMPLE Brown albuterol sulfate 90 mcg/actuation (Ventolin HFA) 2 puffs inhalation Q4H PRN aspirin 81 mg PO DAILY azelastine 1 spray intranasal BID blood sugar diagnostic (FreeStyle Lite Strips) As directed blood-glucose meter (FreeStyle [place] Lite kit) As directed escitalopram oxalate (Lexapro) 20 mg PO DAILY ezetimibe 10 mg PO DAILY fexofenadine (Zari Allergy) 180 mg PO BID fluticasone propionate 110 mcg/actuation 2 puffs inhalation BID lancets (FreeStyle Lancets) As directed lorazepam (Ativan) 0.5 mg PO DAILY PRN mirabegron ER (Myrbetriq) 50 mg PO DAILY omalizumab (Xolair) 300 mg subcut Q4W ondansetron 4 mg PO Q12H PRN pantoprazole 40 mg PO DAILY@0630 prazosin 1 mg PO BEDTIME propranolol ER 160 mg PO DAILY quetiapine 50 mg PO BEDTIME PRN rosuvastatin 40 mg PO DAILY sennosides (senna) 8.6 mg PO DAILY topiramate 50 mg PO DAILY zolpidem (Ambien) 10 mg PO BEDTIME PRN HPI Comments Details: This?is a?64?yo female who is s/p LSG revision of bypass on?05/04/2024. Presents for 5 month post op visit. Weight at last visit on 08/08/2024 was 162 pounds with a BMI of 27.8, unsure of weight today as home scale not working well but thinks she weighed 152 last time her scale worked a few weeks ago.? No complaints of nausea, emesis, abdominal pain or reflux, or constipation. Was sick recently with a virus, had changes to insurance. Pt feels pressure/anxious when she thinks about sending her weight measurements every week. Present meal plan includes: 2 celebrate 4 in 1 shakes with 2 scoops each 1 bar 4 forks protein, 4 forks veg taking Gatorade or Powerade zero Exercise routine includes: using bike but has some hip pain, PT PFSH Medical History (Updated 08/08/24 @ 10:53 by DIMPLE Brown) Pre-op evaluation Epigastric abdominal pain Cholelithiasis H. pylori infection BMI 36.0-36.9,adult Stress incontinence Back pain Intestinal malabsorption Migraines Insomnia DJD (degenerative joint disease) Hyperlipidemia Hypertension CAD (coronary artery disease) Obstructive sleep apnea treated with continuous positive airway pressure (CPAP) Hypoglycemia Anxiety and depression Anemia Seronegative rheumatoid arthritis Asthma Surgical History (Updated 05/12/24 @ 11:14 by Svitlana Cramer CMA) S/P laparoscopic sleeve gastrectomy H/O colonoscopy History of surgery on arm History of lumbar fusion Hx laparoscopic cholecystectomy History of esophagogastroduodenoscopy (EGD) Hx of appendectomy H/O total hip arthroplasty Hx of cataract extraction H/O gastric bypass Family History Father Hypertension Asthma Depression Diabetes Mother Diabetes Hypertension Social History Household Members: Family Housing: House Are you a primary residential care facility manager to a significant other at home: Yes Do you presently have visiting nurse or other home services: No Alcohol intake: current Alcohol intake frequency: does not drink Patient Tobacco Use Status: Former Tobacco user Telehealth Telehealth Telehealth Platform: Telephone Location of provider rendering services: other Location of patient: address on file Patient Identification confirmed using: Name, : Yes Telehealth method: voice only Patient verbally consented to treatment: Yes Patient verbally consented to billing insurance company: Yes Patient informed of any privacy concerns related to visit: Yes Minutes spent on Phone/Video with Pt.: 16 Assessment & Plan Assessment & Plan (1) Overweight: Code(s): E66.3 - Overweight Category: Medical (2) S/P laparoscopic sleeve gastrectomy: Comment: revision of GBP Code(s): Z98.84 - Bariatric surgery status Category: Medical Plan She spoke at length with her frustrations during this process. I reassured her that she has made very good progress and is no longer obese, which was due to her hard work. Will continue meal plan per Dr R, will check labs at next visit. RTC 6 weeks. I spent a total of 30 minutes reviewing/updating records, examining the patient and counseling the patient on weight management as detailed above.
== END 2024-09-27 10:21 | disposition home or self-care (01) ==
LOC: HO.HBS 10:08
PROVIDERS: PCP Internal Medicine; Visit Provider Physician Assistant Surgical
DX: E66.3 Overweight (principal); Z98.84 Bariatric surgery status
CPT/HCPCS: 99214; G2211

== ENCOUNTER → 2024-09-27 10:08 | Outpatient (BNVA) | payer OTHER, SELFPAY | PROVIDERS: PCP Internal Medicine; Visit Provider Physician Assistant Surgical | DX: E66.3 Overweight (principal); Z71.3 Dietary counseling and surveillance; Z98.84 Bariatric surgery status | CPT/HCPCS: 99212 ==

== ENCOUNTER 2024-11-20 12:16 | Outpatient (AMB) | payer OTHER, SELFPAY ==
--- NOTE | 2024-11-20 12:03 | A.OFFVIS_ITS ---
Intake Visit Reasons: TELEPHONE PO LSG 05/04/24 Allergies penicillin V Allergy (Mild, Verified 05/12/24 10:59) hives acarbose Adverse Reaction (Mild, Verified 05/12/24 10:59) Flatulence shellfish Allergy (Severe, Uncoded 05/01/24 12:42) Angioedema Medication List - Last Reconciled 11/20/24 by DIMPLE Brown albuterol sulfate 90 mcg/actuation (Ventolin HFA) 2 puffs inhalation Q4H PRN aspirin 81 mg PO DAILY azelastine 1 spray intranasal BID blood sugar diagnostic (FreeStyle Lite Strips) As directed blood-glucose meter (FreeStyle [place] Lite kit) As directed escitalopram oxalate (Lexapro) 20 mg PO DAILY ezetimibe 10 mg PO DAILY fexofenadine (Zari Allergy) 180 mg PO BID fluticasone propionate 110 mcg/actuation 2 puffs inhalation BID lancets (FreeStyle Lancets) As directed lorazepam (Ativan) 0.5 mg PO DAILY PRN mirabegron ER (Myrbetriq) 50 mg PO DAILY omalizumab (Xolair) 300 mg subcut Q4W ondansetron 4 mg PO Q12H PRN pantoprazole 40 mg PO DAILY@0630 prazosin 1 mg PO BEDTIME propranolol ER 160 mg PO DAILY quetiapine 50 mg PO BEDTIME PRN rosuvastatin 40 mg PO DAILY sennosides (senna) 8.6 mg PO DAILY topiramate 50 mg PO DAILY zolpidem (Ambien) 10 mg PO BEDTIME PRN HPI Comments Details: This?is a?64?yo female who is s/p LSG 05/04/2024. Presents for 6mo post op visit. Has not weighed herself since last visit, was around 152 at that time.? No complaints of nausea, emesis, abdominal pain or reflux, or constipation. I'm a wreck in many ways- dealing with my depression, changes in things since I turned 64, messing up with my medications, I didn't want to get out of the house. Her son and granddaughter have been living with her for 3mo. I slammed my scale on the ground and I didn't get another one. Does not currently have a therapist but does see the person who prescribes her meds. Present meal plan includes: 2 celebrate 4 in 1 shakes with 2 scoops each 1 bar 4 forks protein, 4 forks veg taking Gatorade or Powerade zero, drinking water does not do bars every day keeping portions small Exercise routine includes: using bike but has some hip pain, PT for right sided pain PFSH Medical History (Updated 08/08/24 @ 10:53 by DIMPLE Brown) Pre-op evaluation Epigastric abdominal pain Cholelithiasis H. pylori infection BMI 36.0-36.9,adult Stress incontinence Back pain Intestinal malabsorption Migraines Insomnia DJD (degenerative joint disease) Hyperlipidemia Hypertension CAD (coronary artery disease) Obstructive sleep apnea treated with continuous positive airway pressure (CPAP) Hypoglycemia Anxiety and depression Anemia Seronegative rheumatoid arthritis Asthma Surgical History (Updated 05/12/24 @ 11:14 by Svitlana Cramer CMA) S/P laparoscopic sleeve gastrectomy H/O colonoscopy History of surgery on arm History of lumbar fusion Hx laparoscopic cholecystectomy History of esophagogastroduodenoscopy (EGD) Hx of appendectomy H/O total hip arthroplasty Hx of cataract extraction H/O gastric bypass Family History Father Hypertension Asthma Depression Diabetes Mother Diabetes Hypertension Social History Household Members: Family Housing: House Are you a primary neonatal intensive care nurse to a significant other at home: Yes Do you presently have visiting nurse or other home services: No Alcohol intake: current Alcohol intake frequency: does not drink Patient Tobacco Use Status: Former Tobacco user Telehealth Telehealth Telehealth Platform: Telephone Location of provider rendering services: other Location of patient: address on file Patient Identification confirmed using: Name, : Yes Telehealth method: voice only Patient verbally consented to treatment: Yes Patient verbally consented to billing insurance company: Yes Patient informed of any privacy concerns related to visit: Yes Minutes spent on Phone/Video with Pt.: 20 Assessment & Plan Assessment & Plan (1) Overweight: Code(s): E66.3 - Overweight Category: Medical (2) S/P laparoscopic sleeve gastrectomy: Comment: revision of GBP Code(s): Z98.84 - Bariatric surgery status Category: Surgical Plan Strongly encouraged BH input to help with pt's current state; she is agreeable to meeting with Chen. Discussed getting enough protein as a daily goal, needs 60g. Sent healthy foods list. Encouraged her to get a scale to track weight. Labs ordered. RTC 3 months, encouraged her to text me with any questions between now and next visit. I spent a total of 30 minutes reviewing/updating records, examining the patient and counseling the patient on weight management as detailed above. Orders: Orders Hemoglobin A1c Today Z98.84 - Bariatric surgery status Lipid Panel Today Z98.84 - Bariatric surgery status Vitamin B1 Today Z98.84 - Bariatric surgery status TSH reflex Free T4 Today Z98.84 - Bariatric surgery status Insulin Today Z98.84 - Bariatric surgery status Complete Blood Count Auto Diff Today Z98.84 - Bariatric surgery status IRON PROFILE Today Z98.84 - Bariatric surgery status Comprehensive Met. Panel Today Z98.84 - Bariatric surgery status Vitamin B12 and Folate Today Z98.84 - Bariatric surgery status Zinc Today Z98.84 - Bariatric surgery status C Reactive Protein Today Z98.84 - Bariatric surgery status Vitamin A Today Z98.84 - Bariatric surgery status Ferritin Today Z98.84 - Bariatric surgery status Vitamin D 25-OH Total Today Z98.84 - Bariatric surgery status
--- OUTSIDE RECORDS SUMMARY | 2024-11-20 14:09 | XMS_ITS | Continuity of Care Document ---
Author Organization [facility] Address [address] [place] [address] Phone Care Team Providers Care Exchange Teller Name Role Phone Jeff MARTINEZ, RVT, RPVI, Vinayak Unavailable U navailable Allergies, Adverse Reactions, Alerts Substance Reaction Status Criticality PENICILLIN Active No Information Procedures Procedure Date Duplex Scan-extrem Veins; Uni/ CT & [place] D Inj Scleros Solut; Mx Veins 1- CT & [place] D Ultrason Guidan Needle Bx-rad- CT & [place] D Office/Outpt E&M Established 15 Mins- CT & [place] Duplex Scan-extrem Veins; Uni/ CT & [place] O ct Duplex Scan-extrem Veins; Uni/ CT & [place] S Ultrason Guidan Needle Bx-rad- CT & [place] S Inj Sclerosing Solution; Sngl- CT & [place] S Office/Oupt E&M New Pt 45 Mins- CT & [place] Duplex Scan-extrem Veins; Comp- CT & [place] Advance Directives Directive Yes / No Effective Date File Name No Information Encounters Encounter Description Practice Location Reason(s) For Visit Diagnoses Date Provider Providers Copied on Encounter [facility], [address] [place] [address] Dr [address], [id number], [place] tel:[phone] [facility] Encounter for follow-up examination after completed treatment for conditions other than malignant neoplasmPain in left leg 4 Jeff MARTINEZ RVT, SANYA Licea. [address], [address], [facility] [place] [place], [id number] , [place]. [phone] Referring Provider: Modesta Lockowod MD, [address] [place] [address] [address], [place], [address]. tel:[phone] [place] [facility], [address] [place] [address] [address], [id number], [place] tel:[phone] [facility] [place] Varicose veins of left lower extremity with other complications 4 Jeff MARTINEZ RVT, SANYA Licea. [address] [facility], [address], [place], [id number] , [place]. tel:[phone] Referring Provider: Modesta Lockwood MD, [address] [place] [address] [address] [facility], [place], [address]. tel:[phone] Office/Outpt E&M Established 15 Mins- [place] & [place] [facility], [address] [place] [address] [address] [address], [id number], [place] tel:[phone] [facility] [place] Varicose veins of left lower extremity with pain 4 Jeff MARTINEZ RVT, SANYA Licea. [address] [facility], [address], [facility] [place], [id number] , [place]. [phone] Referring Provider: Modesta Lockwood MD, [address] [place] [address] [address], [place], [address]. tel:[phone] [place] [facility], [address] [place] [address] [address], [id number], [place] tel:[phone] [facility] [place] Pain in left lower leg 4 Jeff MARTINEZ RVT, SANYA Licea. [address], [address], [facility] [place], [id number] , [place]. [phone] Referring Provider: Modesta Lockwodo MD, [address] [place] [address] [place] [address], [address]. tel:[phone] [facility], [address] [place] [address] Dr [address] [place], [id number], [place] tel:[phone] CVR - [facility] Encounter for follow-up examination after completed treatment for conditions other than malignant nePain in left lower leg Sep-1 0- 4 Jeff MARTINEZ RVT, SANYA Licea. [address] [place] [address], [place], [place], [id number] , [place]. tel:[phone] Referring Provider: Modesta Lockwood MD, [address] [place] [address] [address] [facility], [place], [address]. tel:[phone] [facility], [address] [place] [address] Dr [address] 1000[facility] [place] Short [place], [id number], [place] tel:[phone] [facility] No Information Sep-0 4 Jeff MARTINEZ RVT, SANYA Licea. [address] [place] [address], [place], [place], [id number] , [place]. tel:[phone] [facility], [address] [place] [address] Dr [address] 1000[facility] C[place] Short [place], [id number], [place] tel:[phone] [facility] Chronic venous hypertension (idiopathic) with inflammation of left lower extremity Sep-0 4 Karlee Porter . [address] [place] [address], [place], [place], [id number] , [place]. tel:[phone] Referring Provider: Modesta Lockwood MD, [address] [place] [address] [address], [place], [address]. tel:[phone] Office/Oupt E&M New Pt 45 Mins- CT & [place] [facility], [address] [place] [address] Dr [address] [facility] [address], [id number], [place] tel:[phone] CVR - [facility] Varicose veins of bilateral lower extremities with other complicationsPr uritus, unspecifiedCram p and spasmLocalized edema 4 Jeff MRATINEZ, ALEM, SANYA Licea. [address] [facility] [address], [address], [place], [id number] , [place]. tel:[phone] Referring Provider: Modesta Lockwood MD, [address], [place], [address]. tel:[phone] [facility], [address] [facility] [address], [place], [id number], [place] tel:[phone] [facility] Pain in right legPain in left leg 4 Jeff MARTINEZ RVT, SANYA Licea. [address], [address], [place], [id number] , [place]. tel:[phone] Referring Provider: Vinayak Aguilar MD, ALEM, SANYA, [address] [facility], [place], [address] . tel:[phone] Family History Family Member Type Diagnosis Age At Onset No Information Payers Payer name Insurance type Covered republican ID Authortony lucero(s) [facility] [id number] Medical Assistance [facility] [id number] Social History Type Description Quantity Date Captured Comments Sex Female Smoking Status No Information Chief Complaint And Reason For Visit No Information Reason For Referral Reason For Referral No Information Plan Of Treatment Date Type Action Status Goal Tobacco cessation counseling completed Goal Diet education completed Referral Ordered: Weight management: Referral to physician timeframe: 3 Months (related to Body mass index (BMI) 29.0-29.9, adult) ordered Appointment Katelyn Cook BOOKED Appointment Katelyn Cook BOOKED History Of Present Illness Encounter Date Complaint History Of Prese nt Illness No Information Functional Status Date Functional Assessmen t No Information Instructions Date Instruction Additional Infor mation Patient education booklet given Related to V V w/ Other Complctns (PAIN); LEFT Patient education booklet given Related to Varicose veins of bilateral lower extremities with other complications Diet education Related to Body mass index (BMI) 29.0-29.9, adult Giving Encouragement to exercise Related to Body mass index (BMI) 29.0-29.9, adult Lifestyle education Related to B leda mass index (BMI) 29.0-29.9, adult Pre and post instruc tions reviewed and provided Related to Varicose veins of bilateral lower extremities with other complications Assessments Type Assessment Date No Information Patient Care Teams Name Effective Dates (start - stop) Status Members No Information
== END 2024-11-20 12:27 | disposition home or self-care (01) ==
LOC: HO.HBS 12:16
PROVIDERS: PCP Internal Medicine; Visit Provider Physician Assistant Surgical
DX: E66.3 Overweight (principal); Z98.84 Bariatric surgery status
CPT/HCPCS: 98016

== ENCOUNTER → 2024-11-20 12:16 | Outpatient (BNVA) | payer OTHER, SELFPAY | PROVIDERS: PCP Internal Medicine; Visit Provider Physician Assistant Surgical ==

== ENCOUNTER 2024-11-27 14:17 | Outpatient (REF) | payer OTHER, SELFPAY ==
[2024-11-27 14:51] LABS: MANUAL DIFF FLAG NO
[2024-11-27 15:11] LABS: Basophils Percent Auto 0.6 % (0-2); Eosinophils Absolute Auto 0.2 X10*3/uL (0.0-0.4); Eosinophils Percent Auto 3.7 % (0-4); Hematocrit 39.7 % (37.0-47.0); Hemoglobin 12.7 g/dl (12.0-16.0); Imm Gran Abs Auto 0.01 X10*3/uL (0.00-0.03); Imm Gran Pct Auto 0.2 % (0.0-0.4); Lymphocytes Absolute Auto 2.4 X10*3/uL (1.2-4.9); Lymphocytes Percent Auto 36.8 % (20-40); Mean Corpuscular Hemoglobin 27.5 pg (27.0-33.0); Mean Corpuscular Volume 85.9 fL (80.0-98.0); Mean Platelet Volume 10.1 fL (9.4-12.3); Monocytes Absolute Auto 0.5 X10*3/uL (0.1-1.2); Monocytes Percent Auto 7.3 % (2-11); Neutrophils Absolute Auto 3.3 x10*3/uL (2.0-8.3); Neutrophils Percent Auto 51.4 % (45-73); Platelet Count 233 X10*3/uL (160-400); Red Blood Count 4.62 X10*6/uL (4.20-5.50); Red Cell Distribution Width 16.2 % (11.0-16.0); White Blood Count 6.4 X10*3/uL (4.8-10.8)
[2024-11-27 17:52] LABS: Estimated Average Glucose 114 mg/dL; Hemoglobin A1C 120.9365 umol/L; Hemoglobin A1c % 5.6 % (<6.0); Total Hemoglobin (HGBA1C) 3218.4001 umol/L
--- OUTSIDE RECORDS SUMMARY | 2024-11-27 18:06 | XMS_ITS | Continuity of Care Document ---
Author Organization [facility] Address [address] [place] [address] Phone Care Team Providers Care Transit Planning Director Name Role Phone Jeff MARTINEZ, RVT, RPVI, Vinayak Unavailable U navailable Allergies, Adverse Reactions, Alerts Substance Reaction Status Criticality PENICILLIN Active No Information Procedures Procedure Date Office/Outpt E&M Established 15 Mins- CT & [place] Duplex Scan-extrem Veins; Uni/ CT & [place] J Duplex Scan-extrem Veins; Uni/ CT & [place] [...] Yes / No Effective Date File Name Other Directive No 11/27/2024 N/A WARNING:The information contained in this section is historical and is provided for information only and does not constitute a legal document or any assurance that the information is still accurate. Please verify the information with the velasquez of the legal document before using it for clinical purposes. Encounters Encounter Description Practice Location Reason(s) For Visit Diagnoses Date Provider Providers Copied on Encounter Office/Outpt E&M Established 15 Mins- CT & [place] [facility], [address] [place] [address] Dr [address], [id number], [place] tel:[phone] CVR [facility] Venous insufficiency (chronic) (peripheral) 5 Jeff MARTINEZ RVT, RPVI Robert. [address] [place] [address], [place], [place], [id number] , [place]. tel:[phone] Referring Provider: Modesta Lockwood MD, [address] [place] [address] Suite [facility], [place], [address]. tel:[phone] [facility], [address] [place] [address] Dr [address] 1000[facility] C[place]ya Short [place], [id number], [place] tel:[phone] [facility] Chronic venous hypertension (idiopathic) with other complications of left lower extremity 5 Jeff MARTINEZ RVT, RPVI Robert. [address] [place] [address], [facility] [address], [place], [place], [id number] , [place]. tel:[phone] Referring Provider: Modesta Lockwood MD, [address] [place] [address] [address], [place], [address]. tel:[phone] [facility], [address] [place] [address] Dr [address] 1000[facility] [place], [id number], [place] tel:[phone] [facility] Encounter for follow-up examination after completed treatment for conditions other than malignant neoplasmPain in left leg 4 Jeff MARTINEZ RVT, RPVI Robert. [address] [place] [address], [facility] [address], [place], [place], [id number] , [place]. tel:[phone] Referring Provider: Modesta Lockwood MD, [address] [place] [address] [address], [place], [address]. tel:[phone] [facility], [address] [place] [address] Dr [address], [id number], [place] tel:[phone] [facility] Varicose veins of left lower extremity with other complications Dec-0 6- 4 Jeff MARTINEZ RVT, RPVI Robert. [address] [address], [place], [place], [id number] , [place]. [phone] Referring Provider: Modesta Lockwood MD, [address] [place] [address] Suite [facility], [place], [address]. tel:[phone] Office/Outpt E&M Established 15 Mins- [place] & [place] [facility], [address] [place] [address] Dr [address] 1000[place], [id number], [place] tel:[phone] [facility] Varicose veins of left lower extremity with pain Oct-0 8- 4 Jfef MARTINEZ RVT, RPVI Robert. [address] [address], [place], [place], [id number] , [place]. [phone] Referring Provider: Modesta Lockwood MD, [address] [place] [address] Suite [facility], [place], [address]. tel:[phone] [facility], [address] [place] [address] Dr [address] 1000[place], [id number], [place] tel:[phone] [facility] Pain in left lower leg Oct-0 8 4 Jeff MARTINEZ RVT, RPVI Robert. [address] [address], [place], [place], [id number] , [place]. tel:[phone] Referring Provider: Modesta Lockwood MD, [address] [place] [address] [address], [place], [address]. tel:[phone] [facility], [address] [place] [address] Dr [address] 1000[place], [id number], [place] tel:[phone] [facility] Encounter for follow-up examination after completed treatment for conditions other than malignant nePain in left lower leg Sep-1 0- 4 Jeff MARTINEZ RVT, RPVI Robert. [address] [facility], [address], [place], [place], [id number] , [place]. tel:[phone] Referring Provider: Modesta Lockwood MD, [address] [place] [address] [address], [place], [address]. tel:[phone] [facility], [address] [place] [address] Dr [address] 1000SuCinthya george [place], [id number], [place] tel:[phone] CVR - [place] No Information Sep-0 4 Jeff MARTINEZ RVT, SANYA Licea. [address] [place] [address], [address], [place], [place], [id number] , [place]. [phone] [facility], [address] [place] [address] Dr [address] 1000SuCinthya george [place], [id number], [place] tel:[phone] [facility] - [place] Chronic venous hypertension (idiopathic) with inflammation of left lower extremity Sep-0 4 Mollitor GIRMA Porter . [address] [place] [address], [facility] [address], [place], [place], [id number] , [place]. [phone] Referring Provider: Modesta Lockwood MD, [address] [place] [address] [address], [place], [address]. tel:[phone] Office/Oupt E&M New Pt 45 Mins- [place] & [place] [facility], [address] [place] [address] Dr [address] 1000SuCinthya george [place], [id number], [place] tel:[phone] [facility] - [place] Varicose veins of bilateral lower extremities with other complicationsPr uritus, unspecifiedCram p and spasmLocalized edema 4 Jfef MARTINEZ RVT, SANYA Licea. [address] [place] [address] [address], [place], [place], [id number] , [place]. tel:[phone] Referring Provider: Modesta Lockwood MD, [address] [place] [address] [address], [place], [address]. tel:[phone] [facility], [address] [place] [address] Dr [address] 1000[place], [id number], [place] tel:[phone] [facility] Pain in right legPain in left leg Jeff MARTINEZ, ALEM, SANYA Licea. [address] [place] [address], [address], [place], [place], [id number] , . tel:[phone] Referring Provider: Vinayak Aguilar MD, ALEM, SANYA, [address] [facility] [address], [place], [address] . tel:[phone] Family History Family Member Type Diagnosis Age At Onset No Information Payers Payer name Insurance type Covered republican ID Authorlicochristina chelwendy(s) [facility] [id number] Medical Assistance [facility] [id number] Social History Type Description Quantity Date Captured Comments Alcohol Use Details Unknown Caffeine Use Details Unknown Tobacco Use Status Current non-smoker Smoking Status Never Smoker Non-Smoking Tobacco Use Details : No Details Available : No Details Available Sex Female Vital Signs Date / Time: Height Weight BMI Pulse Rate Blood Pressure Temperature Respiratory Rate Body Surface Area Head Circumference Head Circ. Percentile Wt./Adi. Percentile BMI percentile Pulse Ox Inhaled Ox 78.930 kg (174.00 lbs) 29.9 3 kg/m eter (2) 130/40 mm[Hg] Chief Complaint And Reason For Visit No Information Reason For Referral Reason For Referral No Information Plan Of Treatment Date Type Action Status Goal Diet education completed Goal Tobacco cessation counseling completed Goal Diet education completed Referral Ordered: Weight management: Referral to physician timeframe: 3 Months (related to Body mass index (BMI) 29.0-29.9, adult) ordered Referral Ordered: Weight management: Referral to physician timeframe: 3 Months (related to Body mass index (BMI) 29.0-29.9, adult) ordered Appointment Katelyn Cook BOOKED History Of Present Illness Encounter Date Complaint History Of Prese nt Illness No Information Functional Status Date Functional Assessmen t No Information Instructions Date Instruction Additional Infor mation Diet education Related to Body mass index (BMI) 29.0-29.9, adult Giving Encouragement to exercise Related to Body mass index (BMI) 29.0-29.9, adult Lifestyle education Related to B leda mass index (BMI) 29.0-29.9, adult Compression stocking usage as conservative measure Related to Venous insufficiency (chronic) (peripheral) Patient education booklet given Related to Venous insufficiency (chronic) (peripheral) Patient education booklet given Related to V [...]
[2024-11-27 19:27] LABS: Alanine Aminotransferase 31 U/L (0-31); Albumin Level 4.3 g/dL (3.5-5.0); Anion Gap 14 (12-20); Aspartate Amino Transferase 35 U/L (5-31); Bilirubin Total 0.6 mg/dL (0.0-1.0); Blood Urea Nitrogen 16 mg/dL (9-16); C Reactive Protein < 0.10 mg/dL (< or = 0.50); Calcium 9.8 mg/dL (8.4-10.2); Carbon Dioxide 23 mmol/L (22-29); Chloride 109 mmol/L (96-108); Cholesterol 169 mg/dL (<200); Estimated Glomerular Filt Rate > 60; Folate 12.9 ng/mL (> or = 4.0); Glucose Random 80 mg/dL (60-115); HDL Cholesterol 56 mg/dL (>40); Iron 46 mcg/dL (30-160); LDL Cholesterol Calculated 94 mg/dL (<100); Percent Iron Saturation 13 % (15-50); Potassium 4.4 mmol/L (3.3-5.1); Sodium 142 mmol/L (135-145); Total Iron Binding Capacity 353 mcg/dL (228-428); Total Protein 7.7 g/dL (6.5-8.0); Triglycerides 98 mg/dL (<150); Unsaturated Iron Binding 307 ug/dL; Vitamin B12 295 pg/mL (200-900)
[2024-11-27 19:36] LABS: Ferritin 4 ng/mL (10-250); Insulin 7 uU/mL (2-29); TSH reflex Free T4 0.47 uIU/mL (0.32-4.0); Vitamin D 25-OH Total 27.3 ng/mL (>30)
[2024-11-27 20:19] LABS: Alkaline Phosphatase 77 U/L (39-117)
[2024-11-30 17:43] LABS: Vitamin A 42 mcg/dL (38-98)
[2024-11-30 17:58] LABS: Zinc 65 mcg/dL (60-130)
[2024-12-01 06:33] LABS: Vitamin B1 12 nmol/L (8-30)
== END 2024-11-27 14:18 | disposition home or self-care (01) ==
LOC: HO.LAB 14:17
PROVIDERS: PCP Internal Medicine; Visit Provider Physician Assistant Surgical
DX: Z98.84 Bariatric surgery status (principal); Z13.1 Encounter for screening for diabetes mellitus
CPT/HCPCS: 36415; 80053; 80061; 82306; 82607; 82728; 82746; 83036; 83525; 83540; 84425; 84443; 84590; 84630; 85025; 86140

== ENCOUNTER 2024-12-22 13:00 | Outpatient (AMB) | payer OTHER, SELFPAY ==
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
--- OUTSIDE RECORDS SUMMARY | 2024-12-22 13:58 | XMS_ITS | Continuity of Care Document ---
Author Organization [facility] Address [address] [place] [address] Phone Care Team Providers Care Auction Block Clerk Name Role Phone Jeff MARTINEZ, RVT, RPVI, [...] Mins- [place] & [place] [facility] ROOT, [address] [place] [address] Dr Solorio [address], [id number], [place] tel:[phone] CVR [facility] Venous insufficiency (chronic) (peripheral) 5 Jeff MARTINEZ RVT, RPVI Robert. [address] [place] [address], [place], [place], [id number] , [place]. tel:[phone] Referring Provider: Modesta Lockwood MD, [address] [place] [address] Suite [facility], [place], [address]. tel:[phone] [facility], [address] [place] [address] Dr [address] [place], [id number], [place] tel:[phone] [facility] Chronic venous hypertension (idiopathic) with other complications of left lower extremity 5 Jeff MARTINEZ RVT, RPVI Robert. [address] [place] [address], [facility] [address], [place], [place], [id number] , [place]. tel:[phone] Referring Provider: Modesta Lockwood MD, [address] [place] [address] [address], [place], [address]. tel:[phone] [facility], [address] [place] [address] Dr Solorio 1000[facility] [place], [id number], [place] tel:[phone] [facility] Encounter for follow-up examination after completed treatment for conditions other than malignant neoplasmPain in left leg 4 Jeff MARTINEZ RVT, RPVI Robert. [address] [place] [address], [facility] [address], [place], [place], [id number] , [place]. tel:[phone] Referring Provider: Modesta Lockwood MD, [address] [place] [address] [address], [place], [address]. tel:[phone] [facility], [address] [place] [address] Dr [address], [id number], [place] tel:[phone] [facility] [place] [facility] [place] Varicose veins of left lower extremity with other complications Dec-0 6- 4 Jeff MARTINEZ RVT, RPVI Robert. [address] [address], [place], [place], [id number] , [place]. [phone] Referring Provider: Modesta Lockwood MD, [address] [place] [address] Suite [facility], [place], [address]. tel:[phone] Office/Outpt E&M Established 15 Mins- [place] & [place] [facility], [address] [place] [address] Dr [address] 1000[place], [id number], [place] tel:[phone] [facility] [place] Varicose veins of left lower extremity with pain Oct-0 8- 4 Jeff MARTINEZ RVT, RPVI Robert. [address] [address], [place], [place], [id number] , [place]. [phone] Referring Provider: Modesta Lockwood MD, [address] [place] [address] Suite [facility], [place], [address]. tel:[phone] [facility], [address] [place] [address] Dr [address] 1000[place], [id number], [place] tel:[phone] [facility] [place] Pain in left lower leg Oct-0 8 4 Jeff MARTINEZ RVT, RPVI Robert. [address] [address], [place], [place], [id number] , [place]. tel:[phone] Referring Provider: Modesta Lockwood MD, [address] [place] [address] [address], [place], [address]. tel:[phone] [facility], [address] [place] [address] Dr [address]orio [address] 1000[place]ya [place], [id number], [place] tel:[phone] [facility] [place] Encounter for follow-up examination after completed treatment for conditions other than malignant nePain in left lower leg Sep-1 0- 4 Jeff MARTINEZ RVT, RPVI Robert. [address] [facility], [address], [place], [place], [id number] , [place]. tel:[phone] Referring Provider: Modesta Lockwood MD, [address] [place] [address] [address], [place], [address]. tel:[phone] [facility], [address] [place] [address] Dr Solorio 1000SuCinthya george [place], [id number], [place] tel:[phone] CVR - [place] [facility] [place] No Information Sep-0 4 Jeff MARTINEZ RVT, SANYA Licea. [address] [place] [address], [address], [place], [place], [id number] , [place]. [phone] [facility], [address] [place] [address] Dr Solorio 1000SuCinthya george [place], [id number], [place] tel:[phone] CVR - [place] [facility] [place] Chronic venous hypertension (idiopathic) with inflammation of left lower extremity Sep-0 4 Mollitor GIRMA Porter . [address] [place] [address], [facility] [address], [place], [place], [id number] , [place]. [phone] Referring Provider: Modesta Lockwood MD, [address] [place] [address] [address], [place], [address]. tel:[phone] Office/Oupt E&M New Pt 45 Mins- [place] & [place] [facility], [address] [place] [address] Dr Solorio 1000SuCinthya george [place], [id number], [place] tel:[phone] CVR - [place] Varicose veins of bilateral lower extremities with other complicationsPr uritus, unspecifiedCram p and spasmLocalized edema 4 Jeff MARTINEZ RVT, SANYA Licea. [address] [place] [address] [address], [place], [place], [id number] , [place]. tel:[phone] Referring Provider: Modesta Lockwood MD, [address] [place] [address] [address], [place], [address]. tel:[phone] [facility], [address] [place] [address] Dr [address] 1000[place], [id number], [place] tel:[phone] [facility] [place] Pain in right legPain in left leg Jeff MARTINEZ, ALEM, SANYA Licea. [address] [place] [address], [address], [place], [place], [id number] , . tel:[phone] Referring Provider: Vinayak Aguilar MD, ALEM, SANYA, [address] [facility] [address], [place], [address] . tel:[phone] Family History Family Member Type Diagnosis Age At Onset No Information Payers Payer name Insurance type Covered republican ID Authorlicochristina chelwendy(s) [facility] [id number] Medical Assistance [facility] [id number] Social History Type Description Quantity Date Captured [...]
== END 2024-12-22 14:27 | disposition home or self-care (01) ==
LOC: HO.HBST 13:27
PROVIDERS: PCP Internal Medicine; Visit Provider Counselor Mental Health
DX: F32.1 Major depressive disorder, single episode, moderate (principal); F41.9 Anxiety disorder, unspecified; F43.9 Reaction to severe stress, unspecified
CPT/HCPCS: 90791

== ENCOUNTER → 2024-12-22 13:00 | Outpatient (BNVA) | payer OTHER, SELFPAY | PROVIDERS: PCP Internal Medicine; Visit Provider Counselor Mental Health ==

== ENCOUNTER → 2025-02-13 13:35 | Outpatient (BNVA) | payer OTHER, SELFPAY | PROVIDERS: PCP Internal Medicine; Visit Provider Physician Assistant Surgical ==